=== PATIENT | male | born 1940 | race Caucasian/White ===

== ENCOUNTER → 2016-11-24 | Outpatient (REF) | payer MEDICARE ==
[~2016-11-24] MED LIST: ASPI325T PO; ASPI81CH32 PO; AZOP0.2S OU; DIOV160T6 PO; FLON1SPR; INDA125TA PO; PANT40TA2 PO; SOTA80TA2 PO; SPIR25TA2 PO; TYLE325T5 PO; VITA10006 PO; XARE20TA PO; ZYLO300T4 PO
[2016-11-24 12:40] LABS: ALBUMIN 3.6 GM/DL (3.2-5.2); ALBUMIN/GLOBULIN RATIO 1.06 (1.00-1.93); BILIRUBIN,TOTAL 0.6 MG/DL (0.2-1.0); CALCIUM LEVEL 9.4 MG/DL (8.8-10.2); CREATININE FOR GFR 1.26 MG/DL (0.70-1.30); GLOMERULAR FILTRATION RATE 59.2 (>42); MAGNESIUM LEVEL 2.8 MG/DL (1.8-2.4); POTASSIUM SERUM 4.4 MEQ/L (3.5-5.1)
[2016-11-24 13:05] LABS: MEAN CORPUSCULAR HEMOGLOBIN 32.3 pg (27.0-33.0); MEAN CORPUSCULAR HGB CONC 33.2 g/dl (32.0-36.5); MEAN CORPUSCULAR VOLUME 97.3 fl (80.0-96.0); RED CELL DISTRIBUTION WIDTH 13.5 % (11.5-14.5); WHITE BLOOD COUNT 8.2 K/mm3 (4.0-10.0)
== END ==
LOC: M SFHCPLAZ 08:50
PROVIDERS: ATTEND Internal Medicine
DX: R10.32 Left lower quadrant pain (principal); I10 Essential (primary) hypertension; I25.10 Atherosclerotic heart disease of native coronary artery without angina pectoris; E78.00 Pure hypercholesterolemia, unspecified

== ENCOUNTER → 2017-01-19 | Outpatient (CLI) | payer MEDICARE ==
[~2017-01-19] MED LIST changes: +FURO20TA2 PO; +REST0.05 OP
[2017-01-19 10:03] LABS: MEAN CORPUSCULAR HGB CONC 32.4 g/dl (32.0-36.5); MEAN CORPUSCULAR VOLUME 98.6 fl (80.0-96.0); RED CELL DISTRIBUTION WIDTH 13.7 % (11.5-14.5); WHITE BLOOD COUNT 7.6 K/mm3 (4.0-10.0)
[2017-01-19 10:40] LABS: ALBUMIN 3.4 GM/DL (3.2-5.2); ALBUMIN/GLOBULIN RATIO 0.97 (1.00-1.93); BILIRUBIN,TOTAL 0.4 MG/DL (0.2-1.0); CALCIUM LEVEL 8.7 MG/DL (8.8-10.2); CREATININE FOR GFR 1.4 MG/DL (0.70-1.30); GLOMERULAR FILTRATION RATE 52.5 (>42); POTASSIUM SERUM 4.1 MEQ/L (3.5-5.1); TOTAL PROTEIN 6.9 GM/DL (6.4-8.2)
== END ==
LOC: M LAB 09:33
PROVIDERS: ATTEND Internal Medicine Cardiovascular Disease
DX: I48.91 Unspecified atrial fibrillation (principal)

== ENCOUNTER → 2017-02-18 | Outpatient (CLI) | payer MEDICARE ==
[2017-02-18 10:36] LABS: MEAN CORPUSCULAR HEMOGLOBIN 31.8 pg (27.0-33.0); MEAN CORPUSCULAR HGB CONC 33.6 g/dl (32.0-36.5); MEAN CORPUSCULAR VOLUME 94.6 fl (80.0-96.0); RED CELL DISTRIBUTION WIDTH 13.2 % (11.5-14.5); WHITE BLOOD COUNT 6.8 K/mm3 (4.0-10.0)
[2017-02-18 10:52] LABS: CALCIUM LEVEL 9.2 MG/DL (8.8-10.2); CREATININE FOR GFR 1.32 MG/DL (0.70-1.30); MAGNESIUM LEVEL 2.6 MG/DL (1.8-2.4); POTASSIUM SERUM 4.3 MEQ/L (3.5-5.1)
== END ==
LOC: M LAB 09:46
PROVIDERS: ATTEND Nurse Practitioner Family
DX: Z01.812 Encounter for preprocedural laboratory examination (principal); I48.91 Unspecified atrial fibrillation

== ENCOUNTER 2017-02-24 13:07 | Outpatient (CLI) | payer MEDICARE ==
[~2017-02-24] VITALS: Ht 178 cm; Wt 98.0 kg
[~2017-02-24 13:07] MED LIST changes: -FURO20TA2 PO; -REST0.05 OP
[2017-02-24] MEDS ORDERED: FURO20TA2 PO (14:06)
[2017-02-24] MEDS ORDERED: REST0.05 OP (14:06)
[2017-02-24] MEDS ORDERED: fentaNYL 100 MCG/2 ML INJECTION (J3010) As Ordered ONE (14:37)
[2017-02-24] MEDS ORDERED: MIDAZOLAM INJ 2 MG/2 ML VIAL (J2250) As Ordered ONE (14:38)
[2017-02-24] MEDS ORDERED: LIDOCAINE VISCOUS 2% SOLN 15ML UDC As Ordered ONE (14:57)
[2017-02-24 16:00] VITALS: BP 149/99
--- NOTE | 2017-02-24 21:02 | RO ---
DATE OF PROCEDURE: 02/24/2017 PRIMARY CARE PROVIDER: Annie Gagnon MD CC: Gerber Raymond MD [place], [place] INDICATION: Atrial fibrillation. The procedure was performed in preparation for tentative atrial fibrillation ablation next week. PROCEDURE: Transesophageal echocardiogram (SHAVON). 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 He has had paroxysmal and lately persistent atrial fibrillation. He was seen by Dr. Gerbre Raymond at [facility] and electively scheduled for a atrial fibrillation ablation next week. I was asked by Dr. Raymond to perform transesophageal echocardiogram to evaluate for presence of left atrial thrombus before the procedure is performed. The patient has been chronically anticoagulated with Xarelto 20 mg daily. The nature of the procedure, its possible risks and complications were discussed with the patient prior on outpatient basis. He signed the appropriate consent form immediately prior to the procedure. PROCEDURE NOTE: Procedure was performed in endoscopy suite. The patient presented in fasting condition. After appropriate time-out was obtained, his posterior pharynx was anesthetized using viscous lidocaine and Cetacaine spray. He was sedated using total 2 mg of IV Versed and 50 mcg of IV fentanyl. He was then positioned in left lateral decubitus position. After appropriate level of sedation was accomplished, a probe was introduced into esophagus and later stomach without any difficulty. After appropriate images were obtained it was withdrawn. There were no immediate complications and the procedure was tolerated well. FINDINGS: Left ventricle is of normal contractility, estimated left ventricular ejection fraction (LVEF) around 55-60%. No segmental wall motion abnormalities are appreciated. Right ventricle also appears normal. Both atria are enlarged, left atrium severely. Right atrium appears only mildly enlarged. Left atrial appendage is of moderate size. There is a dense echo density apparent most consistent with left atrial appendage thrombus. It is round in nature and measures 0.5 x 0.8 cm. There is normal flow in both left-sided and right-sided pulmonary veins. Left atrial septum is intact based on 2-D, color Doppler imaging and injection of agitated saline. Mitral valve exhibits degenerative abnormalities, but there is no annie prolapse and no vegetations seen. Approximately mild to moderate mitral insufficiency is appreciated. Tricuspid valve also appears normal. Mild to moderate tricuspid insufficiency is seen. There are degenerative abnormalities of aortic valve with aortic sclerosis, but no stenosis. Trace insufficiency is seen by color Doppler imaging. Pulmonic valve was reasonably well seen. There is no apparent stenosis or insufficiency. No pericardial effusion is noted. There is mild atherosclerosis apparent in aortic arch and visualized segment of descending aorta. No ulcers or mobile thrombi in the aorta are seen. CONCLUSIONS: 1. Preserved LV systolic function. 2. Mild to moderate mitral and tricuspid insufficiency. 3. Degenerative abnormalities of aortic valve with trace aortic insufficiency and no aortic stenosis. 4. 0.5 x 0.8 cm round echodensity in left atrial appendage most consistent with thrombus. 5. Intact atrial septum. 6. Atherosclerosis of thoracic aorta. COMMENT: Subacute bacterial endocarditis (SBE) is not recommended. The patient will be continued on his chronic regimen and study will be repeated in 7-8 weeks. I discussed the findings with Dr. Raymond and his recommendations were also conveyed to the patient and his . BERT
== END 2017-02-24 16:04 | disposition home or self-care (01) ==
LOC: M OPP 13:07
PROVIDERS: ATTEND Internal Medicine Cardiovascular Disease
DX: I48.0 Paroxysmal atrial fibrillation (principal); I34.0 Nonrheumatic mitral (valve) insufficiency; I36.1 Nonrheumatic tricuspid (valve) insufficiency; Z98.61 Coronary angioplasty status; I10 Essential (primary) hypertension; E78.00 Pure hypercholesterolemia, unspecified; I25.10 Atherosclerotic heart disease of native coronary artery without angina pectoris; G47.30 Sleep apnea, unspecified; Z88.8 Allergy status to other drugs, medicaments and biological substances; Z79.899 Other long term (current) drug therapy; Z79.01 Long term (current) use of anticoagulants
CPT/HCPCS: 93312; 93320; 93325; J2250; J3010

== ENCOUNTER → 2017-04-15 | Outpatient (CLI) | payer MEDICARE ==
[~2017-04-15] MED LIST changes: +FURO20TA2 PO; +REST0.05 OP
[2017-04-15 10:31] LABS: ALBUMIN 3.7 GM/DL (3.2-5.2); ALBUMIN/GLOBULIN RATIO 1.12 (1.00-1.93); BILIRUBIN,TOTAL 0.6 MG/DL (0.2-1.0); CREATININE FOR GFR 1.51 MG/DL (0.70-1.30); GLOMERULAR FILTRATION RATE 47.9 (>42); MAGNESIUM LEVEL 2.5 MG/DL (1.8-2.4); POTASSIUM SERUM 4.1 MEQ/L (3.5-5.1)
== END ==
LOC: M LAB 09:26
PROVIDERS: ATTEND Internal Medicine
DX: I10 Essential (primary) hypertension (principal); E78.00 Pure hypercholesterolemia, unspecified; I48.0 Paroxysmal atrial fibrillation

== ENCOUNTER 2017-04-27 06:40 | Day surgery (SDC) | payer MEDICARE ==
[~2017-04-27] VITALS: Ht 180.3 cm; Wt 98.0 kg
[2017-04-27] MEDS ORDERED: LIDOCAINE VISCOUS 2% SOLN 15ML UDC As Ordered ONE (07:30)
[2017-04-27] MEDS ORDERED: MIDAZOLAM INJ 2 MG/2 ML VIAL (J2250) As Ordered ONE (07:36)
[2017-04-27] MEDS ORDERED: fentaNYL 100 MCG/2 ML INJECTION (J3010) As Ordered ONE (07:39)
[2017-04-27] MEDS ORDERED: MIDAZOLAM INJ 2 MG/2 ML VIAL (J2250) IV ONE (08:15)
[2017-04-27] MEDS: NS 1,000 ML IV SCH ×2 (08:15→08:24)
[2017-04-27] MEDS ORDERED: fentaNYL 100 MCG/2 ML INJECTION (J3010) IV ONE (08:15)
[2017-04-27 08:38] VITALS: BP 153/99
--- NOTE | 2017-04-27 09:21 | T-ECHO ---
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 He had a transesophageal echocardiogram 6 weeks ago in preparation for atrial fibrillation ablation. Unfortunately it detected a mass in his left atrial appendage and consequently the procedure was cancelled and he is now here for second transesophageal echocardiogram to make sure that the presumptive left atrial appendage thrombus has resolved. I discussed the rationale nature of the procedure and possible complications with the patient and his on outpatient basis. He did sign appropriate consent just prior to the procedure. Procedure was performed in endoscopy suite. The patient presented in fasting condition. After appropriate time-out was performed, his posterior pharynx was anesthetized using viscous lidocaine and Cetacaine spray. He was then positioned in left lateral decubital position and sedated with total of 2 mg of IV Versed and 25 mcg of IV fentanyl. Bite block was placed in place and SHAVON probe was introduced into esophagus without difficulty. After appropriate images were obtained, it was withdrawn. There were no immediate complications and the patient tolerated the procedure well. FINDINGS: Left ventricle has grossly normal contractility. I estimate ejection fraction around 55%. Right ventricle does not appear enlarged. Both atria are severely enlarged. Left atrial appendage is relatively large and is free of visible thrombi. Atrial septum is intact based on two-dimensional and color Doppler imaging. Aortic valve is sclerotic but it has three cusps and normal mobility. There is no stenosis or insufficiency of the valve. Mitral valve appears grossly structurally normal. I do not appreciate any obvious prolapse. There is approximately moderate or possibly even moderately severe mitral insufficiency with systolic flow reversal in left-sided pulmonary veins. Tricuspid valve exhibits mild or possibly mild to moderate insufficiency. Calculated pulmonary artery pressure is in 30s corresponding to mild pulmonary hypertension. Pulmonic valve was poorly visualized but grossly appears normal and there is no significant insufficiency. There is mild atherosclerosis of the thoracic aorta. CONCLUSIONS: 1. Preserved left ventricular systolic function. 2. Left atrial appendage free of thrombus. 3. Intact atrial septum. 4. Normally appearing mitral valve but at least moderate mitral insufficiency. 5. Aortic sclerosis but no stenosis or insufficiency. 6. Mild pulmonary hypertension. COMMENTS: Subacute bacterial endocarditis (SBE) prophylaxis is not recommended. Results will be communicated to Dr. Raymond in [place] so the patient can be scheduled for atrial fibrillation ablation as soon as possible. cc: MD Gerber Armando MD - [facility]
== END 2017-04-27 08:50 | disposition home or self-care (01) ==
LOC: M OPP 06:40
PROVIDERS: ATTEND Internal Medicine Cardiovascular Disease
DX: I48.91 Unspecified atrial fibrillation (principal); I10 Essential (primary) hypertension; I25.9 Chronic ischemic heart disease, unspecified; Z79.01 Long term (current) use of anticoagulants
CPT/HCPCS: 93312; 93320; 93325; J2250; J3010

== ENCOUNTER → 2017-05-05 | Outpatient (CLI) | payer MEDICARE ==
[2017-05-05 10:26] LABS: MEAN CORPUSCULAR HEMOGLOBIN 29.3 pg (27.0-33.0); MEAN CORPUSCULAR HGB CONC 31.7 g/dl (32.0-36.5); MEAN CORPUSCULAR VOLUME 92.5 fl (80.0-96.0); PLATELET COUNT, AUTOMATED 241 10^3/uL (150-450); RED CELL DISTRIBUTION WIDTH 14.5 % (11.5-14.5); WHITE BLOOD COUNT 9.7 10^3/uL (4.0-10.0)
[2017-05-05 10:53] LABS: CALCIUM LEVEL 9.3 MG/DL (8.8-10.2); CREATININE FOR GFR 1.31 MG/DL (0.70-1.30); GLOMERULAR FILTRATION RATE 56.5 (>42); MAGNESIUM LEVEL 2.6 MG/DL (1.8-2.4)
== END ==
LOC: M LAB 09:23
DX: I48.91 Unspecified atrial fibrillation (principal)

== ENCOUNTER → 2017-07-12 | Outpatient (CLI) | payer MEDICARE ==
[2017-07-12 10:09] LABS: ANION GAP 7 MEQ/L (8-16); BLOOD UREA NITROGEN 31 MG/DL (7-18); CALCIUM LEVEL 9.2 MG/DL (8.8-10.2); CARBON DIOXIDE LEVEL 29 MEQ/L (21-32); CHLORIDE LEVEL 107 MEQ/L (98-107); CREATININE FOR GFR 1.47 MG/DL (0.70-1.30); GLOMERULAR FILTRATION RATE 49.5 (>42); GLUCOSE, FASTING 97 MG/DL (70-100); POTASSIUM SERUM 4.5 MEQ/L (3.5-5.1); SODIUM LEVEL 143 MEQ/L (136-145)
== END ==
LOC: M LAB 08:53
DX: I10 Essential (primary) hypertension (principal)
CPT/HCPCS: 80048

== ENCOUNTER → 2017-08-29 | Outpatient (CLI) | payer MEDICARE ==
[2017-08-29 08:05] LABS: HEMATOCRIT 43.3 % (42.0-52.0); HEMOGLOBIN 13.8 g/dl (13.5-17.5); MEAN CORPUSCULAR HEMOGLOBIN 30.1 pg (27.0-33.0); MEAN CORPUSCULAR HGB CONC 31.9 g/dl (32.0-36.5); MEAN CORPUSCULAR VOLUME 94.3 fl (80.0-96.0); PLATELET COUNT, AUTOMATED 249 10^3/uL (150-450); RED BLOOD COUNT 4.59 10^6/uL (4.30-6.10); RED CELL DISTRIBUTION WIDTH 16.2 % (11.5-14.5); WHITE BLOOD COUNT 9.1 10^3/uL (4.0-10.0)
[2017-08-29 08:24] LABS: ALBUMIN 3.7 GM/DL (3.2-5.2); ALBUMIN/GLOBULIN RATIO 0.97 (1.00-1.93); ALKALINE PHOSPHATASE 84 U/L (45-117); ALT/SGPT 32 U/L (12-78); ANION GAP 6 MEQ/L (8-16); AST/SGOT 25 U/L (7-37); BILIRUBIN,TOTAL 0.5 MG/DL (0.2-1.0); BLOOD UREA NITROGEN 25 MG/DL (7-18); CALCIUM LEVEL 8.9 MG/DL (8.8-10.2); CARBON DIOXIDE LEVEL 28 MEQ/L (21-32); CHLORIDE LEVEL 110 MEQ/L (98-107); CHOLESTEROL LEVEL 179 MG/DL (<200); CHOLESTEROL RISK RATIO 3.891 (<5); CREATININE FOR GFR 1.38 MG/DL (0.70-1.30); GLOMERULAR FILTRATION RATE 53.2 (>42); GLUCOSE, FASTING 86 MG/DL (70-100); HDL CHOLESTEROL 46 MG/DL (>40); LDL CHOLESTEROL 90.8 MG/DL (<100); MAGNESIUM LEVEL 2.6 MG/DL (1.8-2.4); NON-HDL-C 133 MG/DL; POTASSIUM SERUM 3.9 MEQ/L (3.5-5.1); SODIUM LEVEL 144 MEQ/L (136-145); TOTAL PROTEIN 7.5 GM/DL (6.4-8.2); TRIGLYCERIDES LEVEL 211 MG/DL (<150)
== END ==
LOC: M LAB 07:20
DX: G47.30 Sleep apnea, unspecified (principal); I10 Essential (primary) hypertension; E78.00 Pure hypercholesterolemia, unspecified
CPT/HCPCS: 83735

== ENCOUNTER → 2017-10-17 | Outpatient (CLI) | payer MEDICARE ==
[2017-10-19 00:06] LABS: Lyme Disease IgG/IgM Antibodie <0.91 ISR (0.00-0.90); Lyme Disease IgM Ab Quantitati <0.80 index (0.00-0.79)
== END ==
LOC: M LAB 13:54
DX: M79.1 Myalgia (principal)
CPT/HCPCS: 36415

== ENCOUNTER → 2018-02-01 | Outpatient (CLI) | payer MEDICARE ==
[2018-02-01 07:24] LABS: HEMATOCRIT 40.3 % (42.0-52.0); HEMOGLOBIN 13.1 g/dl (13.5-17.5); MEAN CORPUSCULAR HEMOGLOBIN 30.5 pg (27.0-33.0); MEAN CORPUSCULAR HGB CONC 32.5 g/dl (32.0-36.5); MEAN CORPUSCULAR VOLUME 93.7 fl (80.0-96.0); PLATELET COUNT, AUTOMATED 237 10^3/uL (150-450); RED CELL DISTRIBUTION WIDTH 14.4 % (11.5-14.5); WHITE BLOOD COUNT 9.8 10^3/uL (4.0-10.0)
[2018-02-01 07:49] LABS: ALBUMIN 3.7 GM/DL (3.2-5.2); ALBUMIN/GLOBULIN RATIO 1.12 (1.00-1.93); ALKALINE PHOSPHATASE 84 U/L (45-117); ALT/SGPT 23 U/L (12-78); ANION GAP 11 MEQ/L (8-16); AST/SGOT 20 U/L (7-37); BILIRUBIN,TOTAL 0.4 MG/DL (0.2-1.0); BLOOD UREA NITROGEN 24 MG/DL (7-18); CALCIUM LEVEL 9.7 MG/DL (8.8-10.2); CARBON DIOXIDE LEVEL 26 MEQ/L (21-32); CHLORIDE LEVEL 107 MEQ/L (98-107); CHOLESTEROL LEVEL 230 MG/DL (<200); CHOLESTEROL RISK RATIO 5.609 (<5); CREATININE FOR GFR 1.38 MG/DL (0.70-1.30); GLOMERULAR FILTRATION RATE 53.1 (>42); GLUCOSE, FASTING 90 MG/DL (70-100); HDL CHOLESTEROL 41 MG/DL (>40); LDL CHOLESTEROL 128.8 MG/DL (<100); MAGNESIUM LEVEL 2.6 MG/DL (1.8-2.4); NON-HDL-C 189 MG/DL; POTASSIUM SERUM 4.3 MEQ/L (3.5-5.1); SODIUM LEVEL 144 MEQ/L (136-145); TRIGLYCERIDES LEVEL 301 MG/DL (<150)
[2018-02-01 10:03] LABS: PTH INTACT 76.3 PG/ML (18.5-88.0)
== END ==
LOC: M LAB 07:00
DX: G47.30 Sleep apnea, unspecified (principal); I12.9 Hypertensive chronic kidney disease with stage 1 through stage 4 chronic kidney disease, or unspecified chronic kidney disease; E78.00 Pure hypercholesterolemia, unspecified; N18.3 Chronic kidney disease, stage 3 (moderate)
CPT/HCPCS: 83735

== ENCOUNTER 2018-03-24 09:10 | Emergency (ER) | payer MEDICARE ==
[2018-03-24] MEDS: FLECAINIDE 50MG TABLET PO (09:55)
[2018-03-24 10:00] LABS: BASO # 0.1 10^3/uL (0.0-0.2); BASO % 0.7 % (0.0-1.0); EOS # 0.2 10^3/uL (0.0-0.50); EOS % 2.7 % (0.0-3.0); HEMATOCRIT 43.3 % (42.0-52.0); HEMOGLOBIN 14.3 g/dl (13.5-17.5); IMMATURE GRANULOCYTE % 0.1 % (0-3.0); LYMPH # 2.1 10^3/uL (1.5-4.5); LYMPH % 25.6 % (24.0-44.0); MEAN CORPUSCULAR HEMOGLOBIN 30.4 pg (27.0-33.0); MEAN CORPUSCULAR VOLUME 91.9 fl (80.0-96.0); MONO # 0.7 10^3/uL (0.0-0.8); MONO % 9.1 % (0.0-5.0); NEUTROPHILS % 61.8 % (36.0-66.0); PLATELET COUNT, AUTOMATED 218 10^3/uL (150-450); RED BLOOD COUNT 4.71 10^6/uL (4.30-6.10); RED CELL DISTRIBUTION WIDTH 14.9 % (11.5-14.5)
[2018-03-24 10:13] LABS: INR 1.41; PROTHROMBIN TIME 17.5 SECONDS (12.1-14.4)
[2018-03-24 10:41] LABS: ALBUMIN 3.7 GM/DL (3.2-5.2); ALBUMIN/GLOBULIN RATIO 1.12 (1.00-1.93); ALKALINE PHOSPHATASE 85 U/L (45-117); ALT/SGPT 31 U/L (12-78); ANION GAP 8 MEQ/L (8-16); AST/SGOT 24 U/L (7-37); BILIRUBIN,DIRECT 0.1 MG/DL (0.0-0.2); BILIRUBIN,TOTAL 0.4 MG/DL (0.2-1.0); BLOOD UREA NITROGEN 22 MG/DL (7-18); CALCIUM LEVEL 9.4 MG/DL (8.8-10.2); CARBON DIOXIDE LEVEL 28 MEQ/L (21-32); CHLORIDE LEVEL 105 MEQ/L (98-107); CPK CREATINE PHOSPHOKINASE 230 U/L (39-308); CREATININE FOR GFR 1.32 MG/DL (0.70-1.30); FREE T4 1.29 NG/DL (0.76-1.46); GLOMERULAR FILTRATION RATE 55.8 (>42); GLUCOSE, FASTING 96 MG/DL (70-100); MAGNESIUM LEVEL 2.4 MG/DL (1.8-2.4); MB/CK RELATIVE INDEX 2.43 (< OR =4); NT-PRO BNP 1475 PG/ML (<450); POTASSIUM SERUM 4.6 MEQ/L (3.5-5.1); SODIUM LEVEL 141 MEQ/L (136-145); TROPONIN I 0.06 NG/ML (< 0.10)
[2018-03-24] MEDS: METOPROLOL 5 MG/5 ML VIAL IV ×2 (11:29→11:53)
[2018-03-24] MEDS: MORPHINE 4 MG/ML 1ML VIAL/SYRINGE (J2270) IV (13:23)
[2018-03-24] MEDS ORDERED: ONDANSETRON 4MG/2ML VIAL (J2405) As Ordered (13:30)
[2018-03-24] MEDS: PROPOFOL 200 MG/20 ML VIAL IV (13:30)
[2018-03-24] MEDS: ONDANSETRON 4MG/2ML VIAL (J2405) IV (13:40)
== END 2018-03-24 15:10 | disposition home or self-care (01) ==
LOC: M ED 09:10
DX: I48.91 Unspecified atrial fibrillation (principal); Z95.5 Presence of coronary angioplasty implant and graft; Z88.8 Allergy status to other drugs, medicaments and biological substances; Z79.899 Other long term (current) drug therapy; Z79.01 Long term (current) use of anticoagulants
CPT/HCPCS: J2270

== ENCOUNTER → 2018-06-12 | Outpatient (CLI) | payer MEDICARE ==
[~2018-06-12] MED LIST changes: +HYDR-3910; +METO1TAB32; -PANT40TA2 PO; +PANT40TA3 PO; +SPIR-10 PO; -SPIR25TA2 PO; +TELM1TAB37; +TRAM50TA2; -ZYLO300T4 PO; +ZYLO300T6 PO
[2018-06-12 07:13] LABS: HEMATOCRIT 43.7 % (42.0-52.0); HEMOGLOBIN 14.3 g/dl (13.5-17.5); MEAN CORPUSCULAR HEMOGLOBIN 31.4 pg (27.0-33.0); MEAN CORPUSCULAR HGB CONC 32.7 g/dl (32.0-36.5); MEAN CORPUSCULAR VOLUME 95.8 fl (80.0-96.0); PLATELET COUNT, AUTOMATED 247 10^3/uL (150-450); RED BLOOD COUNT 4.56 10^6/uL (4.30-6.10); WHITE BLOOD COUNT 9.3 10^3/uL (4.0-10.0)
[2018-06-12 07:35] LABS: BLOOD UREA NITROGEN 27 MG/DL (7-18); CALCIUM LEVEL 9.2 MG/DL (8.8-10.2); CARBON DIOXIDE LEVEL 27 MEQ/L (21-32); CHLORIDE LEVEL 108 MEQ/L (98-107); CREATININE FOR GFR 1.21 MG/DL (0.70-1.30); GLOMERULAR FILTRATION RATE > 60.0 (>42); GLUCOSE, FASTING 88 MG/DL (70-100); POTASSIUM SERUM 4.3 MEQ/L (3.5-5.1); SODIUM LEVEL 143 MEQ/L (136-145)
== END ==
LOC: M LAB 06:23
PROVIDERS: ATTEND Internal Medicine Cardiovascular Disease
DX: Z01.812 Encounter for preprocedural laboratory examination (principal); I48.91 Unspecified atrial fibrillation

== ENCOUNTER → 2018-06-21 | Outpatient (CLI) | payer MEDICARE ==
[2018-06-21 11:19] LABS: BLOOD UREA NITROGEN 31 MG/DL (7-18); CALCIUM LEVEL 9.3 MG/DL (8.8-10.2); CARBON DIOXIDE LEVEL 27 MEQ/L (21-32); CHLORIDE LEVEL 107 MEQ/L (98-107); CREATININE FOR GFR 1.17 MG/DL (0.70-1.30); GLOMERULAR FILTRATION RATE > 60.0 (>42); GLUCOSE, FASTING 85 MG/DL (70-100); POTASSIUM SERUM 4.9 MEQ/L (3.5-5.1); SODIUM LEVEL 141 MEQ/L (136-145)
== END ==
LOC: M LAB 09:41
PROVIDERS: ATTEND Internal Medicine Advanced Heart Failure and Transplant Cardiology
DX: I10 Essential (primary) hypertension (principal)

== ENCOUNTER → 2018-11-10 | Outpatient (CLI) | payer MEDICARE ==
[~2018-11-10] MED LIST changes: +ASPI-1 PO; -ASPI325T PO; -ASPI81CH32 PO; +ASPI81CH33 PO
[2018-11-10 15:49] LABS: BLOOD UREA NITROGEN 24 MG/DL (7-18); CALCIUM LEVEL 9.1 MG/DL (8.8-10.2); CARBON DIOXIDE LEVEL 29 MEQ/L (21-32); CHLORIDE LEVEL 105 MEQ/L (98-107); CREATININE FOR GFR 1.17 MG/DL (0.70-1.30); GLOMERULAR FILTRATION RATE > 60.0 (>42); GLUCOSE, FASTING 103 MG/DL (70-100); POTASSIUM SERUM 4.9 MEQ/L (3.5-5.1); SODIUM LEVEL 137 MEQ/L (136-145)
[2018-11-13 13:24] LABS: CPK CREATINE PHOSPHOKINASE 348 U/L (39-308); MAGNESIUM LEVEL 2.7 MG/DL (1.8-2.4)
== END ==
LOC: M LAB 14:33
PROVIDERS: ATTEND Internal Medicine Cardiovascular Disease
DX: I10 Essential (primary) hypertension (principal); Z98.61 Coronary angioplasty status; M62.89 Other specified disorders of muscle

== ENCOUNTER → 2018-11-14 | Outpatient (CLI) | payer MEDICARE | LOC: M LAB 15:41 | PROVIDERS: ATTEND Internal Medicine Cardiovascular Disease | DX: R53.1 Weakness (principal); I48.91 Unspecified atrial fibrillation ==

== ENCOUNTER → 2018-12-27 | Outpatient (REF) | payer MEDICARE ==
[2019-01-02 10:29] LABS: DRVV SCREEN 66.1 SEC
[2019-01-02 10:32] LABS: PTT LUPUS TYPE ANTICOAG SCREEN 1.7 (0-1.2)
[2019-01-02 10:39] LABS: LUPUS CONFIRM RATIO 1.3
[2019-01-02 10:45] LABS: NORMALIZED RATIO 1.31 (0.00-1.20)
[2019-01-03 00:07] LABS: ACETYLCHOLINE RCPTOR BINDING A < 0.03 nmol/L (0.00-0.24); ALDOLASE 5.2 U/L (3.3-10.3); ANGIOTENSIN 1 CONVERTING ENZYM 63 U/L (14-82); STRIATIONAL ANTIBODIES Negative (Neg:<1:40)
[2019-01-04 14:51] LABS: HEXAGONAL PHASE PHOSPHOLIPID 0 sec (0-11)
== END ==
LOC: M LABNEURO 12:00
PROVIDERS: ATTEND Psychiatry & Neurology Neurology
DX: R42 Dizziness and giddiness (principal)

== ENCOUNTER → 2019-01-01 | Outpatient (REF) | payer MEDICARE ==
[2019-01-01 14:13] LABS: HEMOGLOBIN 14.7 g/dl (13.5-17.5); MEAN CORPUSCULAR HEMOGLOBIN 31.2 pg (27.0-33.0); MEAN CORPUSCULAR HGB CONC 32.7 g/dl (32.0-36.5); MEAN CORPUSCULAR VOLUME 95.5 fl (80.0-96.0); PLATELET COUNT, AUTOMATED 279 10^3/uL (150-450); RED BLOOD COUNT 4.71 10^6/uL (4.30-6.10); WHITE BLOOD COUNT 7.6 10^3/uL (4.0-10.0)
[2019-01-01 14:49] LABS: ALBUMIN 3.8 GM/DL (3.2-5.2); ALT/SGPT 32 U/L (12-78); BILIRUBIN,TOTAL 0.4 MG/DL (0.2-1.0); BLOOD UREA NITROGEN 19 MG/DL (7-18); CALCIUM LEVEL 9.5 MG/DL (8.8-10.2); CARBON DIOXIDE LEVEL 29 MEQ/L (21-32); CHLORIDE LEVEL 101 MEQ/L (98-107); CHOLESTEROL LEVEL 223 MG/DL (<200); CHOLESTEROL RISK RATIO 5.868 (<5); CREATININE FOR GFR 1.22 MG/DL (0.70-1.30); GLOMERULAR FILTRATION RATE > 60.0 (>42); GLUCOSE, FASTING 86 MG/DL (70-100); HDL CHOLESTEROL 38 MG/DL (>40); LDL CHOLESTEROL 109 MG/DL (<100); MAGNESIUM LEVEL 2.6 MG/DL (1.8-2.4); NON-HDL-C 185 MG/DL; POTASSIUM SERUM 4.9 MEQ/L (3.5-5.1); PTH INTACT 121.8 PG/ML (18.5-88.0); SODIUM LEVEL 135 MEQ/L (136-145); TOTAL PROTEIN 7.4 GM/DL (6.4-8.2); TRIGLYCERIDES LEVEL 380 MG/DL (<150)
== END ==
LOC: M SFHCPLAZ 11:40
PROVIDERS: ATTEND Internal Medicine
DX: M48.062 Spinal stenosis, lumbar region with neurogenic claudication (principal); I12.9 Hypertensive chronic kidney disease with stage 1 through stage 4 chronic kidney disease, or unspecified chronic kidney disease; N18.3 Chronic kidney disease, stage 3 (moderate)

== ENCOUNTER → 2019-05-04 | Outpatient (CLI) | payer MEDICARE ==
[2019-05-04 10:15] LABS: BILIRUBIN,TOTAL 0.5 MG/DL (0.2-1.0); CALCIUM LEVEL 9.3 MG/DL (8.8-10.2); CREATININE FOR GFR 1.28 MG/DL (0.70-1.30); GLOMERULAR FILTRATION RATE 57.7 (>42); POTASSIUM SERUM 4.1 MEQ/L (3.5-5.1)
[2019-05-04 10:16] LABS: ALBUMIN 3.5 GM/DL (3.2-5.2); CHOLESTEROL RISK RATIO 5.69 (<5); MAGNESIUM LEVEL 2.6 MG/DL (1.8-2.4); TOTAL PROTEIN 6.7 GM/DL (6.4-8.2); URIC ACID 5.7 MG/DL (3.5-7.2)
[2019-05-04 10:29] LABS: PTH INTACT 116.1 PG/ML (18.5-88.0); TOTAL 25(OH) VITAMIN D 25.4 NG/ML (30.0-100.0)
== END ==
LOC: M LAB 08:58
PROVIDERS: ATTEND Internal Medicine
DX: I12.9 Hypertensive chronic kidney disease with stage 1 through stage 4 chronic kidney disease, or unspecified chronic kidney disease (principal); N18.3 Chronic kidney disease, stage 3 (moderate); M10.9 Gout, unspecified

== ENCOUNTER → 2019-06-25 | Outpatient (REF) | payer MEDICARE ==
[2019-06-25 19:33] LABS: CALCIUM LEVEL 9.6 MG/DL (8.8-10.2); CREATININE FOR GFR 1.37 MG/DL (0.70-1.30); GLOMERULAR FILTRATION RATE 53.4 (>42)
== END ==
LOC: M SFHCPLAZ 14:17
PROVIDERS: ATTEND Internal Medicine
DX: I50.33 Acute on chronic diastolic (congestive) heart failure (principal)

== ENCOUNTER → 2019-06-29 | Outpatient (CLI) | payer MEDICARE ==
[2019-06-29 19:27] LABS: BASO # 0.1 10^3/uL (0.0-0.2); BASO % 0.6 % (0.0-1.0); EOS # 0.2 10^3/uL (0.0-0.5); EOS % 2.3 % (0.0-3.0); HEMATOCRIT 44.1 % (42.0-52.0); HEMOGLOBIN 14.1 g/dl (13.5-17.5); LYMPH # 2.5 10^3/uL (1.5-5.0); LYMPH % 25.3 % (24.0-44.0); MEAN CORPUSCULAR HEMOGLOBIN 30.9 pg (27.0-33.0); MEAN CORPUSCULAR VOLUME 96.7 fl (80.0-96.0); MONO # 0.5 10^3/uL (0.0-0.8); MONO % 5.4 % (0.0-5.0); NEUTROPHILS # 6.5 10^3/uL (1.5-8.5); NEUTROPHILS % 65.7 % (36.0-66.0); PLATELET COUNT, AUTOMATED 269 10^3/uL (150-450); RED BLOOD COUNT 4.56 10^6/uL (4.30-6.10); WHITE BLOOD COUNT 9.9 10^3/uL (4.0-10.0)
[2019-06-29 19:44] LABS: ALBUMIN 3.9 GM/DL (3.2-5.2); ALT/SGPT 25 U/L (12-78); BILIRUBIN,TOTAL 0.6 MG/DL (0.2-1.0); BLOOD UREA NITROGEN 23 MG/DL (7-18); C REACTIVE PROTEIN QUANTITATIV < 0.30 MG/DL (0.00-0.30); CALCIUM LEVEL 9.4 MG/DL (8.8-10.2); CARBON DIOXIDE LEVEL 30 MEQ/L (21-32); CHLORIDE LEVEL 105 MEQ/L (98-107); CREATININE FOR GFR 1.44 MG/DL (0.70-1.30); GLOMERULAR FILTRATION RATE 50.4 (>42); GLUCOSE, FASTING 116 MG/DL (70-100); NT-PRO BNP 732 PG/ML (<450); POTASSIUM SERUM 3.8 MEQ/L (3.5-5.1); SODIUM LEVEL 141 MEQ/L (136-145); THYROID STIMULATING HORMONE 0.874 uIU/ML (0.358-3.740); TOTAL PROTEIN 7.5 GM/DL (6.4-8.2)
[2019-06-29 19:49] LABS: AMORPHOUS SEDIMENT SMALL (NEGATIVE); APPEARANCE, URINE HAZY (CLEAR); BACTERIA, URINE AUTO NEGATIVE (NEGATIVE); BILIRUBIN, URINE AUTO NEGATIVE (NEGATIVE); BLOOD, URINE BLOOD NEGATIVE (NEGATIVE); CALCIUM OXALATE CRYSTALS LARGE; COLOR, URINE YELLOW (YELLOW); GLUCOSE, URINE (UA) AUTO NEGATIVE (NEGATIVE); KETONE, URINE AUTO NEGATIVE (NEGATIVE); LEUKOCYTE ESTERASE, URINE AUTO NEGATIVE (NEGATIVE); MUCUS, URINE SMALL (NEGATIVE); NITRITE, URINE AUTO NEGATIVE (NEGATIVE); PROTEIN, URINE AUTO NEGATIVE (NEGATIVE); RBC, URINE AUTO 1 /HPF (0-3); SQUAMOUS EPITHELIAL CELL UR AU 0 /HPF (0-6); UROBILINOGEN, URINE AUTO 0.2 mg/dL (0.0-2.0); WBC, URINE AUTO 1 /HPF (0-3)
[2019-06-29 23:12] LABS: ERYTHROCYTE SEDIMENTATION RATE 13 mm/hr (0-20)
[2019-07-03 00:06] LABS: ANTI DOUBLE STRAND-DNA AB <1 IU/mL (0-9); ANTINUCLEAR ANTIBODIES DIRECT Positive (Negative); RNP ANTIBODIES 0.3 AI (0.0-0.9); SJOGREN'S ANTI SS-A <0.2 AI (0.0-0.9); SJOGREN'S ANTI SS-B <0.2 AI (0.0-0.9); SMITH ANTIBODIES <0.2 AI (0.0-0.9)
== END ==
LOC: M PLALAB 13:40
PROVIDERS: ATTEND Internal Medicine Cardiovascular Disease
DX: I11.0 Hypertensive heart disease with heart failure (principal); R29.898 Other symptoms and signs involving the musculoskeletal system; I50.9 Heart failure, unspecified
CPT/HCPCS: 36415; 80053; 81001; 83880; 84443; 85025; 85652; 86038; 86140; G0103

== ENCOUNTER 2019-07-13 21:18 | Emergency (ER) | payer MEDICARE ==
[~2019-07-13] VITALS: Ht 180.3 cm; Wt 102.2 kg
[~2019-07-13 21:18] MED LIST changes: -TELM1TAB37; +TELM1TAB37 PO
[2019-07-13] MEDS ORDERED: TRANEXAMIC ACID 100 MG/ML 10ML VIAL XX ONE (22:15)
[2019-07-13] MEDS ORDERED: SILVER NITRATE APPLICATOR TOP ONE (22:45)
[2019-07-14] MEDS ORDERED: MELO15TA28 PO (00:05)
[2019-07-14] MEDS ORDERED: VENTAER INH (00:05)
[2019-07-14] MEDS ORDERED: ASPI81TA85 PO (00:05)
[2019-07-14] MEDS ORDERED: CODE30TA PO (00:05)
[2019-07-14] MEDS ORDERED: ROCA0.5C PO (00:05)
[2019-07-14] MEDS ORDERED: VOLT1GEL15 TD (00:05)
[2019-07-14] MEDS ORDERED: DICY20TA11 PO (00:05)
[2019-07-14] MEDS ORDERED: ROSU10TA6 PO (00:05)
[2019-07-14] MEDS ORDERED: VITA100T59 PO (00:05)
[2019-07-14] MEDS ORDERED: FURO40TA2 PO (00:05)
[2019-07-14] MEDS ORDERED: SM LTAB5 PO (00:05)
[2019-07-14] MEDS ORDERED: MIRA3350 PO (00:05)
[2019-07-14 00:13] VITALS: BP 179/88
== END 2019-07-14 00:14 | disposition home or self-care (01) ==
LOC: M ED 21:18
DX: H92.22 Otorrhagia, left ear (principal); I48.91 Unspecified atrial fibrillation; Z79.899 Other long term (current) drug therapy; Z88.8 Allergy status to other drugs, medicaments and biological substances

== ENCOUNTER → 2019-08-03 | Outpatient (REF) | payer MEDICARE ==
[~2019-08-03] MED LIST changes: +ASPI81TA85 PO; +CODE30TA PO; +DICY20TA11 PO; +FURO40TA2 PO; +MELO15TA28 PO; +MIRA3350 PO; +ROCA0.5C PO; +ROSU10TA6 PO; +SM LTAB5 PO; +VENTAER INH; +VITA100T59 PO; +VOLT1GEL15 TD
== END ==
LOC: M SMT 17:18
PROVIDERS: ATTEND Urology
DX: R31.0 Gross hematuria (principal)
CPT/HCPCS: 52000; 87086; 88108; G0463

== ENCOUNTER → 2019-08-13 | Outpatient (CLI) | payer MEDICARE ==
[~2019-08-13] MED LIST changes: +ISOVUE-370 76% 100ML VIAL (Q9967) As Ordered ONE
--- NOTE | 2019-08-13 10:01 | REP ---
CT UROGRAPHY: CT STUDY OF THE ABDOMEN AND PELVIS WITHOUT AND DUAL-PHASE POSTCONTRAST IMAGING: HISTORY: Gross hematuria. Comparison sonography August 18, 2015 showed a 3.8 cm cyst in the right kidney. CT CONTRAST DOSE: 100 mL of intravenous Isovue 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 The lung bases show no significant abnormality. There is a moderate size sliding type hiatal hernia. There is coronary artery vascular calcification. No adrenal lesion is seen. No abnormality is noted in the gallbladder or the pancreas. There is a cyst in the upper pole of the right kidney again noted. This measures 4.0 cm in greatest diameter. There is an intrarenal calculus in the upper pole of the left kidney measuring 3 mm. Vascular calcifications noted in the renal artery branches bilaterally. There is no evidence of hydronephrosis. No other intrarenal calculus is appreciated. There is no evidence of renal mass lesion. The 4 cm cyst is a simple cyst by CT criteria. There is a tiny cortical cyst in the periphery of the right kidney as well 4-5 mm in greatest diameter. Delayed acquisition images show no evidence of filling defect in either collecting system. There is no evidence of bladder mass. Ureters describe a normal course to the urinary bladder. No abdominal wall defect is seen. Visualized small and large bowel loops are unremarkable. The patient is status post appendectomy and right herniorrhaphy. IMPRESSION: Upper pole cyst right kidney. Hiatal hernia. 3 mm intrarenal calculus upper pole left kidney. Electronically Signed by Huy Cuevas MD 08/13/2019 11:31 A
== END ==
LOC: M RAD 07:30
PROVIDERS: ATTEND Urology
DX: R31.0 Gross hematuria (principal)
CPT/HCPCS: 74178; Q9967

== ENCOUNTER → 2019-09-13 | Outpatient (REF) | payer MEDICARE ==
[~2019-09-13] MED LIST changes: -ISOVUE-370 76% 100ML VIAL (Q9967) As Ordered ONE
[2019-09-13 11:23] LABS: HEMATOCRIT 44.1 % (42.0-52.0); HEMOGLOBIN 14.1 g/dl (13.5-17.5); MEAN CORPUSCULAR HEMOGLOBIN 30.7 pg (27.0-33.0); MEAN CORPUSCULAR VOLUME 95.9 fl (80.0-96.0); PLATELET COUNT, AUTOMATED 207 10^3/uL (150-450); WHITE BLOOD COUNT 8.3 10^3/uL (4.0-10.0)
[2019-09-13 12:31] LABS: PTH INTACT 77.7 PG/ML (18.5-88.0)
[2019-09-13 12:34] LABS: ALBUMIN 3.8 GM/DL (3.2-5.2); BILIRUBIN,TOTAL 0.4 MG/DL (0.2-1.0); CALCIUM LEVEL 10.2 MG/DL (8.8-10.2); CHOLESTEROL RISK RATIO 3.6 (<5); CREATININE FOR GFR 1.51 MG/DL (0.70-1.30); GLOMERULAR FILTRATION RATE 47.7 (>42); MAGNESIUM LEVEL 2.5 MG/DL (1.8-2.4); POTASSIUM SERUM 3.9 MEQ/L (3.5-5.1); TOTAL PROTEIN 7.3 GM/DL (6.4-8.2); URIC ACID 4.4 MG/DL (3.5-7.2)
== END ==
LOC: M PLALAB 10:10
PROVIDERS: ATTEND Internal Medicine
DX: M48.062 Spinal stenosis, lumbar region with neurogenic claudication (principal); I12.9 Hypertensive chronic kidney disease with stage 1 through stage 4 chronic kidney disease, or unspecified chronic kidney disease; I25.10 Atherosclerotic heart disease of native coronary artery without angina pectoris; N18.3 Chronic kidney disease, stage 3 (moderate); M10.9 Gout, unspecified

== ENCOUNTER → 2019-11-12 | Outpatient (REF) | payer MEDICARE | LOC: M SMT 16:46 | PROVIDERS: ATTEND Urology | DX: R82.89 Other abnormal findings on cytological and histological examination of urine (principal) ==

== ENCOUNTER → 2019-12-05 | Outpatient (CLI) | payer MEDICARE ==
[~2019-12-05] MED LIST changes: -ASPI81TA85 PO; +ASPI81TA86 PO; -METO1TAB32; +METO1TAB32 PO; +PANT40TA29 PO; -PANT40TA3 PO; +PLAV1TAB2 PO; +REFRSOL OU; -TRAM50TA2; +TRAM50TA2 PO
[2019-12-05 13:22] LABS: MEAN CORPUSCULAR HEMOGLOBIN 31.7 pg (27.0-33.0); MEAN CORPUSCULAR HGB CONC 31.8 g/dl (32.0-36.5); MEAN CORPUSCULAR VOLUME 99.8 fl (80.0-96.0); PLATELET COUNT, AUTOMATED 222 10^3/uL (150-450); RED BLOOD COUNT 4.41 10^6/uL (4.30-6.10); WHITE BLOOD COUNT 8.8 10^3/uL (4.0-10.0)
[2019-12-05 13:32] LABS: CALCIUM LEVEL 9.9 MG/DL (8.8-10.2); CHOLESTEROL RISK RATIO 3.729 (<5); CREATININE FOR GFR 1.3 MG/DL (0.70-1.30); GLOMERULAR FILTRATION RATE 56.7 (>42); POTASSIUM SERUM 4.3 MEQ/L (3.5-5.1)
== END ==
LOC: M PLALAB 10:21
PROVIDERS: ATTEND Internal Medicine Cardiovascular Disease
DX: I25.10 Atherosclerotic heart disease of native coronary artery without angina pectoris (principal); Z98.61 Coronary angioplasty status; E78.00 Pure hypercholesterolemia, unspecified

== ENCOUNTER → 2020-03-14 | Outpatient (REF) | payer MEDICARE ==
[~2020-03-14] MED LIST changes: +METO1TAB32; -METO1TAB32 PO; -PLAV1TAB2 PO; -REFRSOL OU; +TRAM50TA2; -TRAM50TA2 PO
[2020-03-14 14:14] LABS: HEMATOCRIT 44.1 % (42.0-52.0); HEMOGLOBIN 14.1 g/dl (13.5-17.5); MEAN CORPUSCULAR HEMOGLOBIN 31.8 pg (27.0-33.0); MEAN CORPUSCULAR VOLUME 99.3 fl (80.0-96.0); PLATELET COUNT, AUTOMATED 208 10^3/uL (150-450); RED BLOOD COUNT 4.44 10^6/uL (4.30-6.10); WHITE BLOOD COUNT 8.2 10^3/uL (4.0-10.0)
[2020-03-14 14:43] LABS: ALBUMIN 3.6 GM/DL (3.2-5.2); ALT/SGPT 36 U/L (12-78); BILIRUBIN,TOTAL 0.4 MG/DL (0.2-1.0); BLOOD UREA NITROGEN 21 MG/DL (7-18); CALCIUM LEVEL 9.3 MG/DL (8.8-10.2); CARBON DIOXIDE LEVEL 33 MEQ/L (21-32); CHLORIDE LEVEL 107 MEQ/L (98-107); CHOLESTEROL LEVEL 146 MG/DL (<200); CHOLESTEROL RISK RATIO 3.476 (<5); GLOMERULAR FILTRATION RATE > 60.0 (>35); GLUCOSE, FASTING 80 MG/DL (70-100); HDL CHOLESTEROL 42 MG/DL (>40); LDL CHOLESTEROL 68 MG/DL (<100); MAGNESIUM LEVEL 2.4 MG/DL (1.8-2.4); NON-HDL-C 104 MG/DL; POTASSIUM SERUM 3.9 MEQ/L (3.5-5.1); SODIUM LEVEL 145 MEQ/L (136-145); TOTAL PROTEIN 6.8 GM/DL (6.4-8.2); TRIGLYCERIDES LEVEL 182 MG/DL (<150)
[2020-03-14 14:48] LABS: PTH INTACT 113.3 PG/ML (18.5-88.0)
== END ==
LOC: M PLALAB 11:28
PROVIDERS: ATTEND Internal Medicine
DX: G47.30 Sleep apnea, unspecified (principal); I12.9 Hypertensive chronic kidney disease with stage 1 through stage 4 chronic kidney disease, or unspecified chronic kidney disease; E78.00 Pure hypercholesterolemia, unspecified; N18.30 Chronic kidney disease, stage 3 unspecified

== ENCOUNTER → 2020-03-24 | Outpatient (REF) | payer MEDICARE ==
[~2020-03-24] MED LIST changes: -METO1TAB32; +METO1TAB32 PO; +PLAV1TAB2 PO; +REFRSOL OU; -TRAM50TA2; +TRAM50TA2 PO
[2020-03-24 18:14] LABS: APPEARANCE, URINE CLOUDY (CLEAR); BACTERIA, URINE AUTO NEGATIVE (NEGATIVE); BILIRUBIN, URINE AUTO NEGATIVE (NEGATIVE); BLOOD, URINE BLOOD 3+ (NEGATIVE); CALCIUM OXALATE CRYSTALS SMALL; COLOR, URINE YELLOW (YELLOW); GLUCOSE, URINE (UA) AUTO NEGATIVE (NEGATIVE); KETONE, URINE AUTO NEGATIVE (NEGATIVE); LEUKOCYTE ESTERASE, URINE AUTO NEGATIVE (NEGATIVE); NITRITE, URINE AUTO NEGATIVE (NEGATIVE); PROTEIN, URINE AUTO 1+ mg/dL (NEGATIVE); RBC, URINE AUTO TNTC /HPF (0-3); SPECIFIC GRAVITY URINE AUTO 1.009 (1.002-1.035); SQUAMOUS EPITHELIAL CELL UR AU 0 /HPF (0-6); UROBILINOGEN, URINE AUTO 0.2 mg/dL (0.0-2.0); WBC, URINE AUTO 0 /HPF (0-3)
== END ==
LOC: M SMT 16:47
PROVIDERS: ATTEND Urology
DX: R31.0 Gross hematuria (principal)

== ENCOUNTER 2020-04-07 21:15 | Emergency (ER) | payer MEDICARE ==
[~2020-04-07] VITALS: Ht 180.3 cm; Wt 92.9 kg
[~2020-04-07 21:15] MED LIST changes: -FLON1SPR; +FLON1SPR NARES; -VOLT1GEL15 TD; +VOLT1GEL15 TOP
[2020-04-07] MEDS ORDERED: OXYMETAZOLINE 0.05% NASAL SPRAY (AFRIN) ONE (22:00)
[2020-04-08] VITALS: BP 238/118
[2020-04-08] MEDS ORDERED: cloNIDine 0.1 MG TAB PO ONE
[2020-04-08 00:54] VITALS: BP 220/118
== END 2020-04-08 00:55 | disposition home or self-care (01) ==
LOC: M ED 21:15
DX: R04.0 Epistaxis (principal); I10 Essential (primary) hypertension; I48.91 Unspecified atrial fibrillation; I25.10 Atherosclerotic heart disease of native coronary artery without angina pectoris; G47.30 Sleep apnea, unspecified; Z79.01 Long term (current) use of anticoagulants; Z79.899 Other long term (current) drug therapy; Z88.8 Allergy status to other drugs, medicaments and biological substances

== ENCOUNTER → 2020-04-09 | Outpatient (REF) | payer MEDICARE ==
[~2020-04-09] MED LIST changes: +FLON1SPR; -FLON1SPR NARES; +VOLT1GEL15 TD; -VOLT1GEL15 TOP
[2020-04-09 18:01] LABS: BASO # 0.1 10^3/uL (0.0-0.2); EOS # 0.2 10^3/uL (0.0-0.5); EOS % 2.8 % (0.0-3.0); HEMATOCRIT 42.6 % (42.0-52.0); HEMOGLOBIN 13.8 g/dl (13.5-17.5); LYMPH # 2.3 10^3/uL (1.5-5.0); LYMPH % 31.9 % (24.0-44.0); MEAN CORPUSCULAR HEMOGLOBIN 32.4 pg (27.0-33.0); MEAN CORPUSCULAR HGB CONC 32.4 g/dl (32.0-36.5); MONO # 0.5 10^3/uL (0.0-0.8); MONO % 7.5 % (0.0-5.0); NEUTROPHILS # 4.1 10^3/uL (1.5-8.5); NEUTROPHILS % 56.4 % (36.0-66.0); PLATELET COUNT, AUTOMATED 212 10^3/uL (150-450); RED BLOOD COUNT 4.26 10^6/uL (4.30-6.10); WHITE BLOOD COUNT 7.2 10^3/uL (4.0-10.0)
[2020-04-09 18:30] LABS: ALBUMIN 3.9 GM/DL (3.2-5.2); ALT/SGPT 42 U/L (12-78); BILIRUBIN,TOTAL 0.5 MG/DL (0.2-1.0); BLOOD UREA NITROGEN 18 MG/DL (7-18); CALCIUM LEVEL 9.6 MG/DL (8.8-10.2); CARBON DIOXIDE LEVEL 30 MEQ/L (21-32); CHLORIDE LEVEL 107 MEQ/L (98-107); CHOLESTEROL LEVEL 134 MG/DL (<200); CREATININE FOR GFR 1.22 MG/DL (0.70-1.30); GLOMERULAR FILTRATION RATE > 60.0 (>35); GLUCOSE, FASTING 96 MG/DL (70-100); HDL CHOLESTEROL 40 MG/DL (>40); LDL CHOLESTEROL 52 MG/DL (<100); MAGNESIUM LEVEL 2.3 MG/DL (1.8-2.4); NON-HDL-C 94 MG/DL; POTASSIUM SERUM 4.3 MEQ/L (3.5-5.1); SODIUM LEVEL 142 MEQ/L (136-145); TOTAL PROTEIN 6.9 GM/DL (6.4-8.2); TRIGLYCERIDES LEVEL 211 MG/DL (<150); URIC ACID 4.2 MG/DL (3.5-7.2)
[2020-04-09 18:38] LABS: PTH INTACT 122.4 PG/ML (18.5-88.0)
== END ==
LOC: M PLALAB 13:41
PROVIDERS: ATTEND Urology
DX: G47.30 Sleep apnea, unspecified (principal); I12.9 Hypertensive chronic kidney disease with stage 1 through stage 4 chronic kidney disease, or unspecified chronic kidney disease; E78.00 Pure hypercholesterolemia, unspecified; N18.30 Chronic kidney disease, stage 3 unspecified; M10.9 Gout, unspecified

== ENCOUNTER → 2020-04-09 | Outpatient (CLI) | payer MEDICARE ==
--- NOTE | 2020-04-09 14:33 | REPPI ---
INDICATION: PREOP TESTING. COMPARISON: Comparison is made with prior chest x-rays from May 17, 2016, June 25, 2015, June 04, 2012, and July 22, 2006. TECHNIQUE: Two views.. FINDINGS: The lungs are well inflated and free of infiltrate. The pleural angles are sharp. The heart size is normal. Pulmonary vasculature is not increased. No significant bony abnormality is seen. There is a 9 mm density projecting in the left perihilar region over the left posterior 6th rib crossing with the anterior 3rd rib. On this patient's previous chest x-rays, monitoring electrodes are fixed to the skin at this precise location. This may be a bone island in the posterior 6th rib but I cannot exclude a pulmonary nodule. A 2nd possible nodular opacity is seen in the left base just above the left hemidiaphragm. Lung nichole are otherwise clear. There are mild degenerative changes in the thoracic spine. A loop recorder is seen projecting over the sternum border on the left. The thoracic aorta is calcific and somewhat tortuous. IMPRESSION: Loop recorder seen. Two nodular densities project on the left. Bone island versus pulmonary nodule. Recommend chest CT study. Otherwise no active disease.. <Electronically signed by Edin Cuevas > 04/09/20 [id number]
== END ==
LOC: M PLAIMG 13:43
PROVIDERS: ATTEND Urology
DX: Z01.818 Encounter for other preprocedural examination (principal); R91.8 Other nonspecific abnormal finding of lung field; M51.34 Other intervertebral disc degeneration, thoracic region; R31.0 Gross hematuria

== ENCOUNTER → 2020-04-11 | Outpatient (CLI) | payer MEDICARE ==
[~2020-04-11] MED LIST changes: +OXYB5TAB10 PO
== END ==
LOC: M LABSMTC 09:55
PROVIDERS: ATTEND Anesthesiology
DX: Z01.812 Encounter for preprocedural laboratory examination (principal); Z20.828 Contact with and (suspected) exposure to other viral communicable diseases

== ENCOUNTER → 2020-04-15 | Outpatient (REF) | payer MEDICARE ==
[~2020-04-15] MED LIST changes: +ASCO500T PO; +DITR5TAB PO; +DULC5TAB PO; -FLON1SPR; +FLON1SPR NARES; +HYDR-4514 PO; +LEVO250T12 PO; +ROZE8TAB16 PO; +SENN-52 PO; +SENO8.6T10 PO; -VOLT1GEL15 TD; +VOLT1GEL15 TOP
== END ==
LOC: M SMT 13:21
PROVIDERS: ATTEND Urology
DX: Z01.818 Encounter for other preprocedural examination (principal); R31.0 Gross hematuria; N39.0 Urinary tract infection, site not specified

== ENCOUNTER 2020-04-16 06:08 | Day surgery (SDC) | payer MEDICARE ==
[~2020-04-16] VITALS: Ht 177.8 cm; Wt 89.4 kg
[~2020-04-16 06:08] MED LIST changes: -ASCO500T PO; -DITR5TAB PO; -DULC5TAB PO; -HYDR-4514 PO; -LEVO250T12 PO; -OXYB5TAB10 PO; -ROZE8TAB16 PO; -SENN-52 PO; -SENO8.6T10 PO
[2020-04-16] MEDS ORDERED: propofoL 200 MG/20 ML VIAL As Ordered ONE ×2 (07:19→08:44)
[2020-04-16] MEDS: LR 1,000 ML IV ONE (07:19)
[2020-04-16] MEDS ORDERED: LIDOCAINE 2% 100MG/5ML SDV (FOR ANES.) As Ordered ONE (07:19)
[2020-04-16] MEDS ORDERED: dexameTHASONE 4 MG/ML 1ML VIAL (J1100 PER 1MG) As Ordered ONE (07:20)
[2020-04-16] MEDS ORDERED: fentaNYL 100 MCG/2 ML INJECTION (J3010) As Ordered ONE (07:20)
[2020-04-16] MEDS ORDERED: MIDAZOLAM INJ 2MG/2ML VIAL (J2250 PER 1MG) As Ordered ONE (07:20)
[2020-04-16] MEDS ORDERED: ONDANSETRON 4MG/2ML VIAL As Ordered ONE (07:20)
[2020-04-16] MEDS ORDERED: ROCURONIUM BROMIDE 50 MG/5 ML VIAL As Ordered ONE (07:43)
[2020-04-16] MEDS: ceFAZolin SOD 2 GM in IV 1 EA IV ONE (07:53)
[2020-04-16] MEDS ORDERED: ePHEDrine SULFATE 25 MG/5 ML(5MG/ML) SYRINGE As Ordered ONE (08:12)
[2020-04-16] MEDS: CONRAY-60 60% 50ML VIAL (Q9961) As Ordered ONE (08:15)
[2020-04-16] MEDS ORDERED: ACETAMINOPHEN 1000MG 100ML IV BTL (OFIRMEV) (J0131 PER 10MG) As Ordered ONE (08:22)
[2020-04-16] MEDS ORDERED: SUGAMMADEX SODIUM 500 MG/5 ML VIAL (BRIDION) As Ordered ONE (08:44)
--- NOTE | 2020-04-16 09:13 | REP ---
INDICATION: CYSTO, BILATERAL STENT. COMPARISON: None. TECHNIQUE: For C-arm views abdomen and pelvis performed. FINDINGS: Left pelvocaliceal system is partially opacified with contrast. A left ureteral stent is placed. Right pelvocaliceal system is also partially opacified with contrast. A right ureteral stent is placed. Both stents demonstrate proximal ends in their respective renal pelvis and the distal ends in the urinary bladder. IMPRESSION: 24 seconds fluoroscopy time utilized for bilateral ureteral stent placement. <Electronically signed by Andreas Rodriguez > 04/16/20 [id number]
[2020-04-16] MEDS ORDERED: ONDANSETRON 4MG/2ML VIAL IV PRN (09:45)
[2020-04-16] MEDS ORDERED: fentaNYL 100 MCG/2 ML INJECTION (J3010) IV PRN (09:45)
[2020-04-16] MEDS ORDERED: PERCOCET 5MG/325MG TAB PO PRN (09:45)
[2020-04-16] MEDS ORDERED: oxyCODONE 5MG TAB PO PRN (09:45)
[2020-04-16] MEDS ORDERED: LR 1,000 ML IV SCH (09:45)
[2020-04-16] MEDS ORDERED: OXYB5TAB10 PO (10:01)
[2020-04-16] MEDS: oxyBUTYnin 5 MG TAB PO PRN (10:13)
[2020-04-16 11:08] VITALS: BP 150/96
--- NOTE | 2020-04-16 12:41 | RO ---
DATE OF OPERATION: 04/16/2020 PREOPERATIVE DIAGNOSIS: Gross hematuria. POSTOPERATIVE DIAGNOSIS: Gross hematuria. PROCEDURES: * Cystoscopy. * Bilateral ureteroscopy. * Bilateral retrograde pyelogram with intraop interpretation of images. * Bilateral ureteral stent placement. SURGEON: Amanuel Sands MD RING PACKER: None. ANESTHESIA: General. OPERATIVE INDICATIONS: This is an 80-year-old male who has had recurrent gross hematuria recently. He previously underwent a full hematuria workup including CT urogram as well as office cystoscopy and that was unremarkable. Since he has had recurrent gross hematuria it was recommended that he have a more thorough workup with ureteroscopy in the operating room. DESCRIPTION OF PROCEDURE: The patient was brought to the operating room and general anesthesia was induced. Prophylactic antibiotics were infused. He was placed in the dorsal lithotomy position and prepped and draped in usual sterile fashion. A rigid cystoscope was inserted into the urethral meatus and advanced into the bladder. The bladder was then thoroughly examined with both the 30 and 70-degree lenses. No bladder tumors were seen. No bladder stones were seen. There were very mild trabeculations in the bladder. Both ureteral orifices were orthotopic and effluxed clear urine. The patient had mild bilobar prostatic hyperplasia with mild outlet obstruction. At this point a guidewire was advanced up the left collecting system. I then advanced a ureteral access sheath up the left collecting system. I then went up the left collecting system with a flexible ureteroscope and of note, once inside the kidney, there was a moderate amount of erythema involving the majority of the urothelium inside the left kidney. It appeared as if there had been some trauma to the inside of the kidney, or potentially some sort of inflammatory condition. No kidney stones were seen. There was no active bleeding. At this point I decided to obtain a renal pelvic washing to be sent for cytology. This was to check for possibility of carcinoma in situ. At this point approximately 40-50 mL of saline was utilized to irrigate the left renal pelvis and this was aspirated back out and sent for left renal pelvic washing for cytology. Of note, no tumors were seen inside the kidney. At this point a retrograde pyelogram was performed and was notable for mild to moderate left hydronephrosis with no extravasation. Of note also, the erythema seen inside the kidney was only there. There was no erythema or any other abnormality seen inside the left ureter. The ureteroscope was withdrawn along with access sheath and no stones were seen inside the ureter. No tumors were seen inside the ureter. The urothelium of the entire left ureter looked completely normal as opposed to what was seen inside the kidney. At this point a guidewire was used to advance a 6-Maldivian x 23-32 cm JJ ureteral stent up the left collecting system. The wire was removed and there were adequate curls of the stent in left renal pelvis and the bladder. At this point a guidewire was advanced up the right collecting system. A ureteral access sheath was advanced up the right collecting system. I then went up the access sheath with a flexible ureteroscope and examined the right kidney. The right kidney looked completely normal. There was no erythema. There were no stones. There were no tumors. The urothelium looked completely normal. I therefore did not obtain a renal pelvic washing from the right side. I then shot a retrograde pyelogram and was notable for mild to moderate right hydronephrosis with no extravasation. I withdrew the ureteroscope along with access sheath and right ureter as well looked completely normal. I then utilized a guidewire to advance 6-Maldivian x 22-32 cm JJ ureteral stent up the right collecting system. The wire was removed and there were adequate curls of the stent in right renal pelvis and the bladder. The bladder was then emptied of all fluid and this marked the conclusion of the procedure. The patient was taken out of dorsal lithotomy position, awakened from anesthesia and transferred to recovery room in stable condition. ESTIMATED BLOOD LOSS: 10 mL. COMPLICATIONS: None. SPECIMEN: Left renal pelvic washing for cytology. PLAN: The patient will follow up in urology clinic in approximately 1-2 weeks to discuss results. We will also take his stents out in a few weeks. BERT
== END 2020-04-16 11:20 | disposition home or self-care (01) ==
LOC: M SDC 06:08
PROVIDERS: ATTEND Urology
DX: R31.0 Gross hematuria (principal); N13.30 Unspecified hydronephrosis; I12.9 Hypertensive chronic kidney disease with stage 1 through stage 4 chronic kidney disease, or unspecified chronic kidney disease; N18.30 Chronic kidney disease, stage 3 unspecified; I48.0 Paroxysmal atrial fibrillation; I25.10 Atherosclerotic heart disease of native coronary artery without angina pectoris; G47.33 Obstructive sleep apnea (adult) (pediatric); E78.00 Pure hypercholesterolemia, unspecified; G43.909 Migraine, unspecified, not intractable, without status migrainosus; G62.9 Polyneuropathy, unspecified; K21.9 Gastro-esophageal reflux disease without esophagitis; M10.9 Gout, unspecified; M79.10 Myalgia, unspecified site; N28.1 Cyst of kidney, acquired; T88.59XD Other complications of anesthesia, subsequent encounter; Z79.01 Long term (current) use of anticoagulants; Z79.899 Other long term (current) drug therapy; Z86.010 Personal history of colon polyps; Z87.891 Personal history of nicotine dependence; Z88.8 Allergy status to other drugs, medicaments and biological substances; Z95.5 Presence of coronary angioplasty implant and graft; Z96.1 Presence of intraocular lens; Z98.41 Cataract extraction status, right eye; Z98.42 Cataract extraction status, left eye
CPT/HCPCS: 52332; 74420; 88108; 88313; C1769; C1894; C2617; J0131; J0690; J1100; J2250; J2405; J3010; Q9961

== ENCOUNTER 2020-04-19 14:28 | Inpatient (IN) | payer MEDICARE ==
[~2020-04-19] VITALS: Ht 177.8 cm; Wt 97.3 kg
[~2020-04-19 14:28] MED LIST changes: +OXYB5TAB10 PO
[2020-04-19] MEDS ORDERED: NS 1,000 ML IV SCH (14:49)
[2020-04-19] MEDS ORDERED: MORPHINE 4 MG/ML 1ML VIAL/SYRINGE (J2270) IV ONE (15:00)
[2020-04-19] MEDS ORDERED: ONDANSETRON 4MG/2ML VIAL IV ONE (15:00)
[2020-04-19 15:35] LABS: BILIRUBIN, URINE MANUAL NEGATIVE (NEGATIVE); GLUCOSE, URINE (UA) MANUAL NEGATIVE (NEGATIVE); KETONE, URINE MANUAL 1+ mg/dL (NEGATIVE); UROBILINOGEN, URINE MANUAL NORMAL (NORMAL)
[2020-04-19 15:35] LABS: BASO % 0.2 % (0.0-1.0); EOS # 0.1 10^3/uL (0.0-0.5); EOS % 0.6 % (0.0-3.0); HEMATOCRIT 41.5 % (42.0-52.0); HEMOGLOBIN 13.2 g/dl (13.5-17.5); LYMPH # 2.2 10^3/uL (1.5-5.0); LYMPH % 18.4 % (24.0-44.0); MEAN CORPUSCULAR HEMOGLOBIN 31.1 pg (27.0-33.0); MEAN CORPUSCULAR HGB CONC 31.8 g/dl (32.0-36.5); MEAN CORPUSCULAR VOLUME 97.6 fl (80.0-96.0); MONO # 1.2 10^3/uL (0.0-0.8); MONO % 10.4 % (0.0-5.0); NEUTROPHILS # 8.3 10^3/uL (1.5-8.5); NEUTROPHILS % 70.1 % (36.0-66.0); PLATELET COUNT, AUTOMATED 226 10^3/uL (150-450); RED BLOOD COUNT 4.25 10^6/uL (4.30-6.10); WHITE BLOOD COUNT 11.8 10^3/uL (4.0-10.0)
[2020-04-19 15:37] LABS: RBC, URINE TNTC /hpf (0-3); SQUAMOUS EPITHELIAL CELL URINE NONE SEEN /hpf (SMALL AMT)
[2020-04-19 15:38] LABS: BACTERIA, URINE NONE SEEN; HYALINE CAST, URINE NONE SEEN /lpf (0-1)
[2020-04-19] MEDS ORDERED: LABETALOL 100MG/20ML VIAL IV STA (15:41)
[2020-04-19] MEDS ORDERED: FUROSEMIDE 20MG/2ML VIAL (J1940) IV ONE (15:45)
[2020-04-19 15:46] LABS: INR 1.37; PROTHROMBIN TIME 17.2 SECONDS (12.5-14.3)
[2020-04-19 15:47] LABS: PARTIAL THROMBOPLASTIN TIME 37.5 SECONDS (24.2-38.5)
[2020-04-19] MEDS ORDERED: HYDROMORPHONE HCL 0.5 MG/ 0.5 ML SYRINGE (J1170 PER 1) IV ONE ×3 (16:00→19:45)
[2020-04-19 16:05] LABS: ALBUMIN 3.6 GM/DL (3.2-5.2); ALT/SGPT 38 U/L (12-78); BILIRUBIN,DIRECT 0.1 MG/DL (0.0-0.2); BILIRUBIN,TOTAL 0.5 MG/DL (0.2-1.0); BLOOD UREA NITROGEN 26 MG/DL (7-18); CALCIUM LEVEL 9.2 MG/DL (8.8-10.2); CARBON DIOXIDE LEVEL 28 MEQ/L (21-32); CHLORIDE LEVEL 105 MEQ/L (98-107); CK-MB VALUE MASS 6.3 NG/ML (<3.6); CPK CREATINE PHOSPHOKINASE 562 U/L (39-308); CREATININE FOR GFR 1.31 MG/DL (0.70-1.30); GLUCOSE, FASTING 107 MG/DL (70-100); LIPASE 70 U/L (73-393); MB/CK RELATIVE INDEX 1.12 (< OR =4); POTASSIUM SERUM 4.1 MEQ/L (3.5-5.1); SODIUM LEVEL 138 MEQ/L (136-145); TOTAL PROTEIN 7.2 GM/DL (6.4-8.2); TROPONIN I < 0.02 NG/ML (< 0.10)
[2020-04-19] MEDS: GASTROGRAFIN SOLUTION 30ML PO SCH ×2 (16:22→17:12)
[2020-04-19] MEDS ORDERED: ISOVUE-370 76% 100ML VIAL As Ordered ONE (17:41)
--- NOTE | 2020-04-19 17:49 | ECGEPIP ---
[facility] - ED Test Date: 2020-04-19 Pat Name: FAIZAN ELLIS Department: Room: - Gender: Male Net Fisher: : 1940 Requested By: MARYJANE Beach Order Number: [id number] Reading MD: Heriberto Sellers Measurements Intervals [place] Rate: 62 P: 39 NV: 193 QRS: -11 QRSD: 102 T: 31 QT: 421 QTc: 430 Interpretive Statements SINUS RHYTHM WITH OCCASIONAL SUPRAVENTRICULAR PREMATURE COMPLEXES LEFTWARD AXIS NONSPECIFIC ST T WAVE CHANGES IVCD CW 03/24/[address] T WAVE CHANGES Electronically Signed on 04-19-2020 17:48:52 EST by Heriberto Sellers
[2020-04-19] MEDS ORDERED: ASCO500T PO (18:49)
[2020-04-19] MEDS ORDERED: XARE20TA PO (18:49)
[2020-04-19] MEDS ORDERED: FURO40TA2 PO (18:49)
--- NOTE | 2020-04-19 18:53 | REPVR ---
PROCEDURE INFORMATION: Exam: CT Abdomen And Pelvis With Contrast Exam date and time: 04/19/2020 5:44 PM Age: 80 years old Clinical indication: Abdominal pain; Localized; Left lower quadrant (llq); Prior surgery; Surgery date: 3-7 days post-operative; Surgery type: Bilat ureteral stents; Additional info: Llq pain S/P ureteral stents TECHNIQUE: Imaging protocol: Computed tomography of the abdomen and pelvis with intravenous contrast. Radiation optimization: All CT scans at this facility use at least one of these dose optimization techniques: automated exposure control; mA and/or kV adjustment per patient size (includes targeted exams where dose is matched to clinical indication); or iterative reconstruction. Contrast material: ISOVUE 370; Contrast volume: 100 ml; Contrast route: INTRAVENOUS (IV); COMPARISON: CT ABD PELVIS W/O FOL BY WIT 08/13/2019 8:02 AM FINDINGS: Liver: Normal. No mass. Gallbladder and bile ducts: Normal. No calcified stones. No ductal dilation. Pancreas: Normal. No ductal dilation. Spleen: Normal. No splenomegaly. Adrenal glands: Normal. No mass. Kidneys and ureters: Comparison to the previous CT abdomen pelvis study from 08/13/2019 shows interval placement of bilateral ureteral stents, with the stents in satisfactory position. High density material is seen adjacent to the distal pigtail of the left ureteral stent in the urinary bladder likely representing intravesical blood clot or infectious debris. The left renal pelvis is moderately dilated which could be indicative of an at least partial obstruction of the left ureter. There is a 3.0 x 2.6 cm hypodense mass in the medial cortex of the upper pole right kidney on image 35 of series 201 and image 67 of series 202. The mass shows some smooth slightly lobulated thickening of the medial wall of the lesion and could represent a Bosniak type IIF cyst. Stomach and bowel: A moderately large sliding-type gastric hiatal hernia is present posterior to the heart. Appendix: No evidence of appendicitis. Intraperitoneal space: Unremarkable. No free air. No significant fluid collection. Vasculature: Unremarkable. No abdominal aortic aneurysm. Lymph nodes: Unremarkable. No enlarged lymph nodes. Urinary bladder: See "Kidneys and ureters" finding. Reproductive: Unremarkable as visualized. Bones/joints: Moderate chronic degenerative vertebral body endplate osteophytic disease is seen in the mid to lower thoracic spine. Mild dextroscoliosis of the thoracolumbar spine, apex at T12/L1. Chronic degenerative discovertebral disease with vacuum disc phenomenon is seen at L2/L3 and at L4/L5. Soft tissues: Unremarkable. IMPRESSION: 1. Comparison to the previous CT abdomen pelvis study from 08/13/2019 shows interval placement of bilateral ureteral stents, with the stents in satisfactory position. High density material is seen adjacent to the distal pigtail of the left ureteral stent in the urinary bladder likely representing intravesical blood clot or infectious debris. The left renal pelvis is moderately dilated which could be indicative of an at least partial obstruction of the left ureter. 2. There is a 3.0 x 2.6 cm hypodense mass in the medial cortex of the upper pole right kidney on image 35 of series 201 and image 67 of series 202. The mass shows some smooth slightly lobulated thickening of the medial wall of the lesion and could represent a Bosniak type IIF cyst. Recommend CT without and with contrast or MR without and with contrast at 6 months and 12 months, then yearly for 5 years. Reference: Theresa MAJOR, Management of the Incidental Renal Mass on CT: A White Paper of the ACR Incidental Findings Committee, J Am Ariana Radiol 2018. 3. A moderately large sliding-type gastric hiatal hernia is present posterior to the heart. 4. Moderate chronic degenerative vertebral body endplate osteophytic disease is seen in the mid to lower thoracic spine. Mild dextroscoliosis of the thoracolumbar spine, apex at T12/L1. Chronic degenerative discovertebral disease with vacuum disc phenomenon is seen at L2/L3 and at L4/L5. Electronically signed by: Ismael Sanabria On 04/19/2020 18:53:30 PM
--- NOTE | 2020-04-19 20:10 | HPEPDOC ---
[facility] Medical History & Physical Date of Admission Apr 19, 2020 Date of Service: Apr 19, 2020 Primary Care Physician: Marcus Gagnon Attending Physician: MICHELLE CHENG MD History and Physical TIME OF SERVICE: 8:20 PM CHIEF COMPLAINT: Abdominal pain HISTORY OF PRESENT ILLNESS: This 80-year-old gentleman presented with complaints of acute worsening of his chronic left lower quadrant abdominal pain last night. The pain tends to get worse when he lies on his left side, is so severe that it wakes him up from sleeping and has persisted despite taking tramadol. His last BM was 2 days ago; he takes Miralax daily. He has been having recurrent gross hematuria for several months; on Apr 16 he had cystoscopy and bilateral ureteral stents placed. After the procedure has continued to have a bit of blood in the urine. Initially he received morphine which didn't alleviate the abdominal pain and was subsequently give Dilaudid which seemed to help. Because of the CT scan findings of left ureteral obstruction called who was of the opinion that the abdominal pain was not likely related to these findings. REVIEW OF SYSTEMS: 12 point review of systems negative except as listed in HPI PAST MEDICAL/ SURGICAL HISTORY: CAD with placement of BALJINDER in the RCA in 2010 and 5 BALJINDER placed in the mid and distal LAD proximal LCx proximal right and posterior lateral branch of RCA in June 2019 is on clopidogrel (ASA was dc'd) Atrial fibrillation, status post ablations 2 (2016 and 2018) and DC cardioversions x2 (2015 & 2017) is on Xarelto Dyslipidemia Gout Labile blood pressure with history of episodes of accelerated Hypertension / orthostatic hypotension Diverticulitis CKD 3 with secondary hyperparathyroidism Chronic right-sided renal cyst 3 cm FLIP CPAP 13 cm water Sleep disorder Chronic back pain / spinal stenosis Sliding gastric hiatal hernia Buccal procedure Vitrectomy Pneumatic retinopexy for left eye detachment 2003 Resection of adenomatous colonic polyp 2015 Bilateral cataract surgery (right eye 2003) Cystoscopy and placement of bilateral ureteral stents March 2020 History of left atrial thrombus in 2017 Appendectomy 195 Tonsillectomy 194 Lap right inguinal hernia repair 1994 Implantation of loop recorder SOCIAL HISTORY: Is a former smoker and quit at 21 years of age 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 HOME MEDICATIONS: Please see below. PHYSICAL EXAMINATION: VITAL SIGNS: Please see below. GEN: well-nourished / well developed/ NAD INTEGUMENT: not flushed/ not jaundice HEENT: lips acyanotic /mucus membranes moist and pink CVS: RRR/NMRG/ radial pulses intact / no lower extremity edema LUNGS: able to speak full sentences without stopping to take a breath / no coughing / lungs are clear to auscultation bilaterally on room air ABDOMEN: there are no masses or lesions / bowel sounds are present / the abdomen is soft & tender with deep palpation of the left lower lateral quandrant MSK/EXTREMITIES: NCAT / range of motion intact in all 4 extremities NEURO: CN 2-12 are grossly intact except for hearing has hearing aides / speech is not dysarthric PSYCH: alert and oriented to person place and time/ able to understand and follow all commands LABORATORY DATA: Laboratory Tests 04/19/20 15:00 04/19/20 21:40 Laboratory Tests 2 04/19/20 15:00: Immature Granulocyte % (Auto) 0.3, Neutrophils (%) (Auto) 70.1H, Lymphocytes (%) (Auto) 18.4L, Monocytes (%) (Auto) 10.4H, Eosinophils (%) (Auto) 0.6, Basophils (%) (Auto) 0.2, Neutrophils # (Auto) 8.3, Lymphocytes # (Auto) 2.2, Monocytes # (Auto) 1.2H, Eosinophils # (Auto) 0.1, Basophils # (Auto) 0.0, Nucleated Red Blood Cells % (auto) 0.0, Prothrombin Time 17.2H, Prothromb Time International Ratio 1.37, Activated Partial Thromboplast Time 37.5, Anion Gap 5L, Glomerular Filtration Rate 56.0, Calcium Level 9.2, Total Bilirubin 0.5, Direct Bilirubin 0.1, Aspartate Amino Transf (AST/SGOT) 62H, Alanine Aminotransferase (ALT/SGPT) 38, Alkaline Phosphatase 89, Total Creatine Kinase 562H, Creatine Kinase MB 6.3H, Creatine Kinase MB Relative Index 1.12, Troponin I < 0.02, Total Protein 7.2, Albumin 3.6, Albumin/Globulin Ratio 1.0, Lipase 70L 04/19/20 15:23: Urine Color (DUARTE) REDH, Urine Appearance (DUARTE) TURBIDH, Urine pH (DUARTE) 7.0, Urine Specific [place] (DUARTE) 1.010, Urine Protein 3+H, Bedside Urine Glucose (UA) NEGATIVE, Bedside Urine Ketones (LAB) 1+H, Bedside Urine Blood POSITIVEH, Bedside Urine Nitrite (LAB) NEGATIVE, Bedside Urine Bilirubin (LAB) NEGATIVE, Bedside Urine Urobilinogen (LAB) NORMAL, Bedside Urine Leukocyte Esterase (L POSITIVEH, Urine Sediment Examination PERFORMED, Urine RBC TNTCH, Urine WBC 5- 7H, Urine Squamous Epithelial Cells NONE SEEN, Urine Bacteria NONE SEEN, Urine Hyaline Casts NONE SEEN IMAGING: CT abd/pelvis " 1. Comparison to the previous CT abdomen pelvis study from 08/13/2019 shows interval placement of bilateral ureteral stents, with the stents in satisfactory position. High density material is seen adjacent to the distal pigtail of the left ureteral stent in the urinary bladder likely representing intravesical blood clot or infectious debris. The left renal pelvis is moderately dilated which could be indicative of an at least partial obstruction of the left ureter. 2. There is a 3.0 x 2.6 cm hypodense mass in the medial cortex of the upper pole right kidney on image 35 of series 201 and image 67 of series 202. The mass shows some smooth slightly lobulated thickening of the medial wall of the lesion and could represent a Bosniak type IIF cyst. Recommend CT without and with contrast or MR without and with contrast at 6 m onths and 12 months, then yearly for 5 years. Reference: Theresa BR, Management of the Incidental Renal Mass on CT: A White Paper of the ACR Incidental Findings Committee, J Am Ariana Radiol 2018. 3. A moderately large sliding-type gastric hiatal hernia is present posterior to the heart. 4. Moderate chronic degenerative vertebral body endplate osteophytic disease is seen in the mid to lower thoracic spine. Mild dextroscoliosis of the thoracolumbar spine, apex at T12/L1. Chronic degenerative discovertebral disease with vacuum disc phenomenon is seen at L2/L3 and at L4/L5." MICROBIOLOGY: Please see below. ASSESSMENT: is an 80 yr old w a hx of CAD w multiple BALJINDER, Afib on xarelto, DLP, Gout, HTN / orthostatic hypotension, CKD 3, FLIP & chronic back pain who presented w c/o of acute on chronic LLQ abdominal pain; he will be admitted for management of acute abd pain, HTN Urgency and evaluation of possible partial L ureter obstruction. PLAN: 1. Hypertensive Urgency His BP was as high as 240/110 in the ER. It is possible the acute elevation today was partially caused by his acute abdominal pain. The acute elevation resolved after he received IV labetalol. Based on the patient has a hx of labile blood pressures with episodes of accelerated Hypertension and orthostatic hypotension. The work up for secondary causes of HTN was negative and they have been working on titrating his meds with his Lining Stuffer and a HTN specialist in [place] for several years . Plan: admit to PCU /will aim to lower BP by 25% w/in the first 2-4 hours with target BP of <160/100 / avoid excessive environmental stimuli / resume lasix & metoprolol / will not add more BP meds as this time because he has had issues with orthostasis / low salt diet / f/u w PCP, Lining Stuffer and HTN specialist as scheduled 2. Acute on chronic LLQ abdominal pain Cause is unclear The pain improved w Dilaudid Plan: c/w dicyclomine / switch from tramadol and codeine sulfate to Dilaudid / will ask the day time team to switch from IV to PO Dilaudid & dc the tramadol and codeine sulfate if they feel it is appropriate 3. Possible left ureter partial obstruction Plan: f/u with 4. Hematuria Plan: trend Hg, f/u iron studies / f/u w on Path results from urine cytology on an out pt basis / c/w Plavix and Xarelto for now 5. Macrocytic anemia Likely multifactorial Had adenomatous polyp in 2016 Plan: trend Hg & f/u iron studies / f/u w PCP to discuss GI referal 6. UTI UA + RBC, WBC, Leuk Est Plan: bc of instrumentation 3 days ago will treat with Levofloxacin / f/u UCx 7. Elevated CPK Cause TBD He has had episodes of elevated CK occasionally as far back as 2012. Per 's notes had c/o myalgias related to atorvastatin in the past. Plan: IVF / trend CK / can discuss starting Co-enzyme Q10 30 to 250 mg/day to try mitigate the side effects of the statins (if the elevation of the CK is due to statins) with his PCP 8. Mild Transaminitis Hep C neg 2019 Plan: f/u with PCP to discuss Liver US 9. Constipation Has BMs about every 2 days rather than at least daily Plan: c/w Miralax 17 G daily / add Senokot S 1 tab BID scheduled / bisacodyl 5mg daily PRN 10. Possible pulmonary nodules Plan: scheduled for out pt CT of the chest in the near future 11.CAD Most recent BALJINDER were placed in June 2019 Plan: clopidogrel, metoprolol, rosuvastatin 12.Atrial fibrillation Plan: Xarelto 13. Dyslipidemia Plan: rosuvastatin 14.Gout Plan: allopurinol 15. CKD 3 with secondary hyperparathyroidism Plan: calcitriol 16. Chronic right-sided renal cyst 3 cm FLIP CPAP 13 cm water 17. Sleep disorder Plan: Rozerem 18. Chronic Back pain Plan: Flector patches DVT PROPHYLAXIS: n/a on NOAC DISPOSITION: likely home after less than 2 midnight's stay Home Medications Scheduled Allopurinol (Zyloprim) 300 Mg Tab, 300 MG PO DAILY Ascorbic Acid (Ascorbic Acid) 500 Mg Tablet, 1,000 MG PO DAILY Brinzolamide (Azopt) 1 % Nina, 1 DROP OU BID Calcitriol (Rocaltrol) 0.5 Mcg Capsule, 0.5 MCG PO DAILY Carboxymethyl/Glycerin/Poly80 (Refresh Optive Advanced Drops) 10 Ml Drops, 1 DROP OU QID Clopidogrel Bisulfate (Plavix) 75 Mg Tablet, 75 MG PO DAILY Furosemide (Furosemide) 40 Mg Tablet, 20 MG PO DAILY Metoprolol Succinate (Metoprolol Succinate) 25 Mg Tab, 25 MG PO QHS Rivaroxaban (Xarelto) 20 Mg Tablet, 20 MG PO QHS Rosuvastatin Calcium (Rosuvastatin Calcium) 10 Mg Tablet, 20 MG PO QHS Sennosides/Docusate Sodium (Senokot-S Tablet) 1 Each Tablet, 1 TAB PO Q12H Scheduled PRN Albuterol Sulfate (Ventolin Hfa) 18 Gm Hfa.aer.ad, 2 PUFF INH TID PRN for wheezing Bisacodyl (Dulcolax) 5 Mg Tablet.dr, 5 MG PO DAILY PRN for BOWEL CARE/CONSTIPATION Codeine Sulfate (Codeine Sulfate) 30 Mg Tablet, 30 MG PO QID PRN for pain Diclofenac Sodium (Voltaren) 100 Gm Gel..gram., 2 GM TOP BID PRN for PAIN APPLY TO JOINTS AND LOWER BACK Dicyclomine HCl (Dicyclomine HCl) 20 Mg Tablet, 20 MG PO QHS PRN for IRRITABLE BOWEL Fluticasone Propionate (Flonase Allergy Relief) 50 Mcg/Act Spr, 2 SPRAYS NARES DAILY PRN for CONGESTION Furosemide (Furosemide) 40 Mg Tablet, 20 MG PO DAILY PRN for WATER RETENTION/ EDEMA Loratadine (Loratadine) 10 Mg Tab.rapdis, 10 MG PO DAILY PRN for ALLERGY SYMPTOMS Pantoprazole Sodium (Pantoprazole Sodium) 40 Mg Tab, 40 MG PO DAILY PRN for HEARTBURN Polyethylene Glycol 3350 (Miralax) 119 Gm Powder, 17 GRAM PO DAILY PRN for CONSTIPATION MIX IN 8 OUNCES OF WATER OR JUICE Ramelteon (Rozerem) 8 Mg Tablet, 8 MG PO QPM PRN for insomnia Tramadol HCl (Tramadol HCl) 50 Mg Tab, 50 MG PO QHS PRN for PAIN Allergies Coded Allergies: apixaban (Verified Adverse Reaction, Intermediate, ATAXIA, 04/04/20) bisoprolol (Verified Adverse Reaction, Intermediate, BRADYCARDIA, 04/04/20) dofetilide (Verified Adverse Reaction, Intermediate, V TACH, 04/04/20) amlodipine (Verified Adverse Reaction, Mild, EDEMA, 04/04/20) atorvastatin (Verified Adverse Reaction, Mild, MUSCLE WEAKNESS, 04/04/20) A-FIB/CHADSVASC A-FIB History Current/History of A-Fib/PAF?: Yes Current PO Anticoag Therapy: Yes MICHELLE CHENG MD Apr 19, 2020 20:10
[2020-04-19] MEDS ORDERED: ACETAMINOPHEN TAB 650MG DOSE (2X325MG) PO PRN (20:15)
[2020-04-19] MEDS ORDERED: HYDROMORPHONE HCL 0.5 MG/ 0.5 ML SYRINGE (J1170 PER 1) IV PRN ×2 (20:15)
[2020-04-19] MEDS ORDERED: MAALOX 30 ML SUSP *UDC PO PRN (20:15)
[2020-04-19] MEDS ORDERED: MOM 30ML SUSPENSION UDC PO PRN (20:15)
[2020-04-19] MEDS ORDERED: RIVAROXABAN 20 MG TAB (XARELTO) PO SCH (21:00)
[2020-04-19] MEDS ORDERED: PANTOPRAZOLE 40MG TAB (PROTONIX) PO PRN (21:45)
[2020-04-19] MEDS ORDERED: DICYCLOMINE 10 MG CAP PO PRN (21:45)
[2020-04-19] MEDS ORDERED: FLUTICASONE PROP 0.05% NASAL SPRAY 16 GM (FLONASE) NARES PRN (21:45)
[2020-04-19] MEDS ORDERED: ALBUTEROL 90 MCG/ACT 8GM HFA INHALER INH PRN (21:45)
[2020-04-19] MEDS ORDERED: FUROSEMIDE 40 MG TAB PO PRN (21:45)
[2020-04-19] MEDS ORDERED: SENOKOT S TAB PO SCH (21:45)
[2020-04-19] MEDS ORDERED: POLYVINYL ALCOHOL OPHTH SOLN 15 ML(LIQUITEARS) OU PRN (21:45)
[2020-04-19] MEDS ORDERED: SENNA 8.6 MG TAB (SENOKOT) PO PRN (21:45)
[2020-04-19] MEDS ORDERED: LORATADINE 10 MG TAB PO PRN (21:45)
[2020-04-19 22:03] LABS: INR 1.3; PROTHROMBIN TIME 16.5 SECONDS (12.5-14.3)
[2020-04-19 22:04] LABS: PARTIAL THROMBOPLASTIN TIME 36.5 SECONDS (24.2-38.5)
[2020-04-19 22:20] VITALS: BP 150/88
[2020-04-20] VITALS (7 sets, daily range): BP systolic 107–172; BP diastolic 60–86
[2020-04-20] MEDS ORDERED: BISACODYL 5 MG TAB PO PRN ×2 (00:30→20:30)
[2020-04-20] MEDS: ROSUVASTATIN 10 MG TAB (CRESTOR) PO SCH ×2 (00:58→21:06)
[2020-04-20] MEDS: LevoFLOXacin 250 MG TABLET PO SCH ×2 (00:58→16:46)
[2020-04-20] MEDS: BRINZOLAMIDE 1 % OPHTH SUSP (AZOPT) 10ML OU SCH ×3 (00:58→21:36)
[2020-04-20] MEDS: RAMELTEON 8 MG TAB (ROZEREM) PO SCH ×2 (00:59→21:06)
[2020-04-20] MEDS: METOPROLOL SUCC *XL* 25MG TAB (TopROL *XL*) PO SCH ×2 (01:00→21:34)
[2020-04-20] MEDS: DICLOFENAC EPOLAMINE 1.3 % PATCH TOP SCH ×3 (01:04→20:45)
[2020-04-20] MEDS ORDERED: DULC5TAB PO (01:06)
[2020-04-20] MEDS ORDERED: SENO8.6T10 PO (01:06)
[2020-04-20] MEDS: SENOKOT S TAB PO SCH ×3 (01:08→21:06)
[2020-04-20] MEDS ORDERED: ROZE8TAB16 PO (01:10)
[2020-04-20 05:57] LABS: HEMATOCRIT 35.9 % (42.0-52.0); HEMOGLOBIN 11.8 g/dl (13.5-17.5); MEAN CORPUSCULAR HEMOGLOBIN 32.2 pg (27.0-33.0); MEAN CORPUSCULAR HGB CONC 32.9 g/dl (32.0-36.5); MEAN CORPUSCULAR VOLUME 97.8 fl (80.0-96.0); PLATELET COUNT, AUTOMATED 185 10^3/uL (150-450); RED BLOOD COUNT 3.67 10^6/uL (4.30-6.10); WHITE BLOOD COUNT 11.5 10^3/uL (4.0-10.0)
[2020-04-20 06:20] LABS: BILIRUBIN,TOTAL 0.4 MG/DL (0.2-1.0); CALCIUM LEVEL 8.4 MG/DL (8.8-10.2); CREATININE FOR GFR 1.46 MG/DL (0.70-1.30); GLOMERULAR FILTRATION RATE 49.5 (>35); MAGNESIUM LEVEL 2.2 MG/DL (1.8-2.4); TOTAL PROTEIN 6.1 GM/DL (6.4-8.2)
[2020-04-20] MEDS: CLOPIDOGREL 75 MG TAB PO SCH (08:56)
[2020-04-20] MEDS: allopurinoL 300 MG TAB PO SCH (08:56)
[2020-04-20] MEDS: ASCORBIC ACID 500 MG TAB PO SCH (08:56)
[2020-04-20] MEDS: CALCITRIOL 0.25 MCG CAP (S0169) PO SCH (08:56)
[2020-04-20] MEDS ORDERED: FUROSEMIDE 40 MG TAB PO SCH (09:00)
--- NOTE | 2020-04-20 09:06 | SMCUROLCON ---
Urology Consultation General Date of Consultation 04/20/20 Reason For Consultation This patient is seen for Abdominal Pain, Hypertensive Urgency. History of Present Illness The patient is a [80]-year-old [man] with a past medical history for [HTN, afib and recent urologic procedure]. He came to ER with left lower abdominal pain and hematuria. He has bilateral ureteral stents in place and is on anticoagulation therapy for his afib. Medications Current Medications Current Medications Medications (Trade) Dose Ordered Sig/Dana Route PRN Reason Start Time Stop Time Status Last Admin Dose Admin Acetaminophen (Tylenol Tab) 650 mg Q4H PRN PO PAIN OR FEVER 04/19/20 20:15 Al Hydrox/Mg Hydrox/Simethicone (Mylanta) 30 ml DAILY PRN PO DYSPEPSIA 04/19/20 20:15 Albuterol Sulfate (Proventil, Ventolin Hfa) 2 puff TID PRN INH wheezing 04/19/20 21:45 Allopurinol (Zyloprim) 300 mg DAILY PO 04/20/20 09:00 Artificial Tears (Akwa Tears) 1 drop QIDP PRN OU DRY EYES 04/19/20 21:45 04/20/20 03:09 Ascorbic Acid (Vitamin C) 1,000 mg DAILY PO 04/20/20 09:00 Bisacodyl (Dulcolax Tab) 5 mg DAILY PRN PO constipation 04/20/20 00:30 Brinzolamide (Azopt) 1 drop BID OU 04/19/20 21:45 04/20/20 00:58 Calcitriol (Rocaltrol) 0.5 mcg DAILY PO 04/20/20 09:00 Clopidogrel Bisulfate (PLAVix) 75 mg DAILY PO 04/20/20 09:00 Diatrizoate Meglum/ Diatrizoate Sod (Gastrografin) 10 ml Q30M PO 04/19/20 16:15 04/19/20 16:46 DC 04/19/20 17:12 Diclofenac Epolamine (Flector 1.3%) 1 patch Q12H TOP 04/19/20 21:00 04/20/20 01:04 Dicyclomine HCl (Bentyl) 20 mg QHS PRN PO IBS 04/19/20 21:45 Fluticasone Propionate (Flonase 0.05% Nasal [place]) 2 spray DAILY PRN NARES CONGESTION 04/19/20 21:45 Furosemide (Lasix) 20 mg DAILY PO 04/20/20 09:00 Furosemide (Lasix) 20 mg DAILY PRN PO WATER RETENTION/ EDEMA 04/19/20 21:45 Home Med (Med Rec Complete!) ASDIRECTED XX 04/19/20 19:00 04/19/20 18:51 DC Hydromorphone HCl (Dilaudid) 0.3 mg Q3HP PRN IV MILD PAIN (PS 1-4) 04/19/20 20:15 04/20/20 02:50 Hydromorphone HCl (Dilaudid) 0.6 mg Q3HP PRN IV MODERATE PAIN (PS 5-7) 04/19/20 20:15 04/20/20 04:56 Labetalol HCl (Normodyne, Trandate) 10 mg STAT STAT IV 04/19/20 15:41 04/19/20 15:43 DC 04/19/20 15:46 Levofloxacin (Levaquin) 250 mg DAILY@1800 PO 04/19/20 23:15 04/20/20 00:58 Loratadine (Claritin) 10 mg DAILY PRN PO ALLERGIES 04/19/20 21:45 Magnesium Hydroxide (Milk Of Magnesia) 30 ml DAILY PRN PO CONSTIPATION 04/19/20 20:15 04/20/20 01:03 DC Metoprolol Succinate (TopROL XL) 25 mg QHS PO 04/19/20 21:45 04/20/20 01:00 Pantoprazole Sodium (Protonix) 40 mg DAILY PRN PO HEARTBURN 04/19/20 21:45 Polyethylene Glycol (Miralax) 1 pkt DAILY PO 04/20/20 09:00 Ramelteon (Rozerem) 8 mg QHS PO 04/19/20 21:45 04/20/20 00:59 Rivaroxaban (Xarelto) 20 mg QHS PO 04/19/20 21:00 04/20/20 01:00 Rosuvastatin Calcium (Crestor) 20 mg QHS PO 04/19/20 21:45 04/20/20 00:58 Senna (Senokot) 1 tab Q12HP PRN PO CONSTIPATION 04/19/20 21:45 04/20/20 01:03 DC Senna/Docusate Sodium (Senokot S) 1 tab BID PO 04/20/20 00:30 04/20/20 01:08 Senna/Docusate Sodium (Senokot S) 1 tab QHS PO 04/19/20 21:45 04/20/20 01:03 DC Sodium Chloride 1,000 ml @ 100 mls/hr Q10H IV 04/19/20 14:49 04/20/20 00:15 DC 04/19/20 15:17 Allergies Allergies: Coded Allergies: apixaban (Verified Adverse Reaction, Intermediate, ATAXIA, 04/04/20) bisoprolol (Verified Adverse Reaction, Intermediate, BRADYCARDIA, 04/04/20) dofetilide (Verified Adverse Reaction, Intermediate, V TACH, 04/04/20) amlodipine (Verified Adverse Reaction, Mild, EDEMA, 04/04/20) atorvastatin (Verified Adverse Reaction, Mild, MUSCLE WEAKNESS, 04/04/20) Physical Examination General Exam: Cooperative, Mild Distress EYE EXAM: PERRLA, Conjunctiva & lids normal, EOMI; No: Sclera icteric ENT EXAM: Atraumatic, Mucous membr. moist/pink, Pharynx Normal Neck Exam: Supple; No: JVD, thyromegaly Abdomen Exam: Normal Bowel Sounds, BS Hyperactive, BS Hypoactive, Soft, Tenderness, Hepatospenomegaly, Mass, Hernia, Other (mild left lower quadrant tenderness without surgical signs) Male Exam normal genitalia Vital Signs/I&O Vital Signs Date Time Temp Pulse Resp B/P (MAP) Pulse Ox O2 Delivery O2 Flow Rate FiO2 04/20/20 08:30 97.4 62 18 149/68 (95) 98 Room Air I&O- Last 24 Hours up to 6 AM 04/20/20 05:59 Intake Total 1100 ml Output Total 1950 ml Balance -850 ml Laboratory Data 24H Labs Laboratory Tests 2 04/19/20 15:00: Immature Granulocyte % (Auto) 0.3, Neutrophils (%) (Auto) 70.1H, Lymphocytes (%) (Auto) 18.4L, Monocytes (%) (Auto) 10.4H, Eosinophils (%) (Auto) 0.6, Basophils (%) (Auto) 0.2, Neutrophils # (Auto) 8.3, Lymphocytes # (Auto) 2.2, Monocytes # (Auto) 1.2H, Eosinophils # (Auto) 0.1, Basophils # (Auto) 0.0, Nucleated Red Blood Cells % (auto) 0.0, Prothrombin Time 17.2H, Prothromb Time International Ratio 1.37, Activated Partial Thromboplast Time 37.5, Anion Gap 5L, Glomerular Filtration Rate 56.0, Calcium Level 9.2, Total Bilirubin 0.5, Direct Bilirubin 0.1, Aspartate Amino Transf (AST/SGOT) 62H, Alanine Aminotransferase (ALT/SGPT) 38, Alkaline Phosphatase 89, Total Creatine Kinase 562H, Creatine Kinase MB 6 .3H, Creatine Kinase MB Relative Index 1.12, Troponin I < 0.02, Total Protein 7.2, Albumin 3.6, Albumin/Globulin Ratio 1.0, Lipase 70L 04/19/20 15:23: Urine Color (DUARTE) REDH, Urine Appearance (DUARTE) TURBIDH, Urine pH (DUARTE) 7.0, Urine Specific [place] (DUARTE) 1.010, Urine Protein 3+H, Bedside Urine Glucose (UA) NEGATIVE, Bedside Urine Ketones (LAB) 1+H, Bedside Urine Blood POSITIVEH, Bedside Urine Nitrite (LAB) NEGATIVE, Bedside Urine Bilirubin (LAB) NEGATIVE, Bedside Urine Urobilinogen (LAB) NORMAL, Bedside Urine Leukocyte Esterase (L POSITIVEH, Urine Sediment Examination PERFORMED, Urine RBC TNTCH, Urine WBC 5- 7H, Urine Squamous Epithelial Cells NONE SEEN, Urine Bacteria NONE SEEN, Urine Hyaline Casts NONE SEEN 04/19/20 19:52: Coronavirus (COVID-19)(PCR) NEGATIVE 04/19/20 21:40: Prothrombin Time 16.5H, Prothromb Time International Ratio 1.30, Activated Partial Thromboplast Time 36.5 04/20/20 05:25: Nucleated Red Blood Cells % (auto) 0.0, Anion Gap 6L, Glomerular Filtration Rate 49.5, Calcium Level 8.4L, Magnesium Level 2.2, Total Bilirubin 0.4, Aspartate Amino Transf (AST/SGOT) 41H, Alanine Aminotransferase (ALT/SGPT) 30, Alkaline Phosphatase 71, Total Creatine Kinase 327H, Total Protein 6.1L, Albumin 3.0L, Albumin/Globulin Ratio 1.0 CBC/BMP Laboratory Tests 04/19/20 15:00 04/19/20 21:40 04/20/20 05:25 Microbiology Microbiology 04/19/20 Urine Culture, Received Pending Assessment Left lower quadrant pain and hematuria in this 80 yo man on anticoagulation and with bilateral ureteral stents in place. I believe the pain is in part from spasms and this is contributing to the bleeding. As long as his bleeding stabilizes, I am not worried about it. I would continue oral and IV hydration and add medication to assist with his spasms. Plan I will follow with you. No need for any aggressive intervention at this time. NEGRITA MORA MD Apr 20, 2020 09:06
[2020-04-20] MEDS: MIRALAX *UNIT DOSE* 17GM PACKET PO SCH (09:09)
[2020-04-20] MEDS ORDERED: BELLADONNA 16.2mg/OPIUM 60mg 1 EA SUPP PR PRN (09:15)
[2020-04-20] MEDS ORDERED: HYDROmorphone 2 MG TAB PO PRN (09:15)
[2020-04-20] MEDS ORDERED: ANEXSIA, NORCO 7.5MG/325MG TABLET(HYDROCODONE/APAP) PO ONE (09:30)
[2020-04-20] MEDS: NS 1,000 ML IV SCH ×2 (09:31→21:38)
[2020-04-20] MEDS ORDERED: traMADol 50 MG TAB PO PRN (10:30)
--- NOTE | 2020-04-20 10:32 | IPNPDOC ---
Text Note Date of Service The patient was seen on 04/20/20. NOTE Subjective: Patient was seen and examined this morning at bedside. Tells me that a lot of his health and his abdominal pain is now much better. Continues to come and go intermittently. Dr. Romero urology was here to see him earlier this morning. Nurse reports there was no overnight events. Objective: Constitutional: Awake and alert, in no apparent distress ENT: Sclera are clear. Mucosa is moist. Respiratory: Lungs CTA bilaterally. No respiratory distress. No use of a ccessory muscles. Cardiovascular: RRR S1 and S2 are normal Gastrointestinal: Abdomen is soft, non distended, non tender, BS present. Musculoskeletal: No LE edema. No joint deformities. RUE 5/5, LUE 5/5, BLE 5/5 Neurologic: No focal neurological deficit. 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 # Acute on chronic LLQ abdominal pain: per Dr Romero urology, likely 2/2 ureter spasms from the ureteral stents. IVFs and Pain control. [place] PRN for pain 5-10 and PO dilaudid for breakthrough pain. Continue dicyclomine and tramadol at night. # Possible left ureter partial obstruction from blood clots. Discussed with Dr Romero, ok to keep stents in for now; encouraged more PO hydration. Fu with Dr Sands. # Hypertensive Urgency: Now improved. could be 2/2 to the acute abdominal pain he had night prior to admission. hx of labile blood pressures with episodes of accelerated Hypertension and orthostatic hypotension. The work up for secondary causes of HTN was negative and they have been working on titrating his meds with his Patient Svcs Mgr and a HTN specialist in [place] for several years . Fu w PCP, Patient Svcs Mgr and HTN specialist as scheduled # Hematuria: Trend Hgb. Continue Plavix. Spoke with his cardiology Dr Galvez and we will hold his xarelto for now, currently EKG shows he's in NSR. Urology Dr Romero consulted who beleives the hematuria is from the stents but they should stay in for longer if his hgb doesn't drop much further. Recommends pain control, hydration, and to follow up with Dr Sands in clinic at scheduled appointment next week. Fu on Path results from urine cytology at appointment next week. # Macrocytic anemia. Likely multifactorial . Had adenomatous polyp in 2016. trend Hg. Fu PCP to discuss GI referal # UTI: UA + RBC, WBC, Leuk Est. b/c of instrumentation 3 days ago will treat with Levofloxacin. Fu UCx. # Elevated CPK: Cause TBD. He has had episodes of elevated CK occasionally as far back as 2012. Per 's notes had c/o myalgias related to atorvastatin in the past. IVF. Trend CK improved. # Mild Transaminitis: Hep C neg 2018. f/u with PCP to discuss Liver US # Constipation: Miralax, Senaokt S scheduled, Biascodyl PRN. # Possible pulmonary nodules: scheduled for out pt CT of the chest Tuesday # CAD: Most recent BALJINDER were placed in June 2019. Clopidogrel, xarelto, metoprolol, rosuvastatin # Atrial fibrillation: hold xarelto given hematuria for now. Discussed this with Dr Galvez his catering assistant. Currently NSR. # Dyslipidemia: rosuvastatin # Gout: allopurinol # CKD 3 with secondary hyperparathyroidism: calcitriol # Chronic right-sided renal cyst 3 cm # FLIP: CPAP 13 cm water # Sleep disorder: Rozerem # Chronic Back pain: Flector patches A Jarod Hospitalist VSKim, I+O VS, Kim I+O Laboratory Tests 04/19/20 15:00 04/19/20 21:40 04/20/20 05:25 Vital Signs Date Time Temp Pulse Resp B/P (MAP) Pulse Ox O2 Delivery O2 Flow Rate FiO2 04/20/20 09:21 18 Room Air 04/20/20 08:30 97.4 62 149/68 (95) 98 I&O- Last 24 Hours up to 6 AM 04/20/20 06:00 Intake Total 1100 ml Output Total 1950 ml Balance -850 ml NAY GAONA MD Apr 20, 2020 10:32
[2020-04-20] MEDS: ANEXSIA, NORCO 7.5MG/325MG TABLET(HYDROCODONE/APAP) PO PRN ×2 (16:45→23:17)
[2020-04-20] MEDS: FUROSEMIDE 20 MG TAB PO SCH (16:46)
[2020-04-21] VITALS (7 sets, daily range): BP systolic 137–183; BP diastolic 78–90
--- NOTE | 2020-04-21 07:38 | IPNPDOC ---
Subjective Review oF Systems Chief Complaint The patient is a 80-year-old male admitted with a reason for visit of Abdominal Pain, Hypertensive Urgency. Events since Last Encounter His urine remains dark but there are fewer clots than before. His pain is also better controlled. He had some mild difficulty with voiding but this improved with increased intake. Objective Physical Examination ABDOMEN EXAM: Normal bowel sounds, Other (His bladder is not palpably distended; no appreciable tenderness) Vital Signs/I&O Vital Signs Date Time Temp Pulse Resp B/P (MAP) Pulse Ox O2 Delivery O2 Flow Rate FiO2 04/21/20 04:00 97.7 59 18 183/88 (119) 96 Room Air I&O- Last 24 Hours up to 6 AM 04/21/20 06:00 Intake Total 2580 ml Output Total 2555 ml Balance 25 ml Laboratory Data Labs 24H Laboratory Tests 2 04/21/20 04:35: Total Creatine Kinase 273 CBC/BMP Laboratory Tests 04/20/20 21:09 Microbiology Microbiology 04/19/20 Urine Culture - Final, Complete Assessment/Plan Date Seen The patient was seen on 04/21/20. Plan/VTE VTE Prophylaxis Ordered?: No Plan Given the general stability of his hemoglobin, I am in favor of his discharge home and follow up as arranged next Tuesday. He will continue medications as prescribed. NEGRITA MORA MD Apr 21, 2020 07:38
[2020-04-21 09:38] LABS: HEMATOCRIT 34.7 % (42.0-52.0); HEMOGLOBIN 11.4 g/dl (13.5-17.5); MEAN CORPUSCULAR HEMOGLOBIN 31.9 pg (27.0-33.0); MEAN CORPUSCULAR HGB CONC 32.9 g/dl (32.0-36.5); MEAN CORPUSCULAR VOLUME 97.2 fl (80.0-96.0); PLATELET COUNT, AUTOMATED 216 10^3/uL (150-450); RED BLOOD COUNT 3.57 10^6/uL (4.30-6.10); WHITE BLOOD COUNT 12.4 10^3/uL (4.0-10.0)
[2020-04-21] MEDS: MIRALAX *UNIT DOSE* 17GM PACKET PO SCH (10:18)
[2020-04-21] MEDS: DICLOFENAC EPOLAMINE 1.3 % PATCH TOP SCH ×2 (10:19→20:26)
[2020-04-21] MEDS: SENOKOT S TAB PO SCH ×2 (10:19→20:23)
[2020-04-21] MEDS: ASCORBIC ACID 500 MG TAB PO SCH (10:19)
[2020-04-21] MEDS: CLOPIDOGREL 75 MG TAB PO SCH (10:20)
[2020-04-21] MEDS: allopurinoL 300 MG TAB PO SCH (10:20)
[2020-04-21] MEDS: CALCITRIOL 0.25 MCG CAP (S0169) PO SCH (10:20)
[2020-04-21] MEDS: FUROSEMIDE 20 MG TAB PO SCH (10:21)
[2020-04-21] MEDS: BRINZOLAMIDE 1 % OPHTH SUSP (AZOPT) 10ML OU SCH ×2 (10:21→19:54)
[2020-04-21 10:58] LABS: CALCIUM LEVEL 9.1 MG/DL (8.8-10.2); CREATININE FOR GFR 1.79 MG/DL (0.70-1.30); GLOMERULAR FILTRATION RATE 39.1 (>35); POTASSIUM SERUM 4.2 MEQ/L (3.5-5.1)
--- NOTE | 2020-04-21 12:05 | IPNPDOC ---
Text Note Date of Service The patient was seen on 04/21/20. NOTE Subjective: Patient was seen and examined this morning at bedside. Tells me overall his abdominal pain is a little better but he continues to have what feels like spasms when he goes to urinate which are very painful. He continues to have hematuria was some clots but it has improved from before. Nurse tells me there was no overnight events. He has been using his [employer] and it's been helping and has not needed to use the oral Dilaudid for breakthrough pain. Objective: Constitutional: Awake and alert, in no apparent distress ENT: Sclera are clear. Mucosa is moist. Respiratory: Lungs CTA bilaterally. No respiratory distress. No use of accessory muscles. Cardiovascular: RRR S1 and S2 are normal Gastrointestinal: Abdomen is soft, non distended, non tender globally but deep palpation of the LLQ is uncomfortable. BS present. Musculoskeletal: No LE edema. No joint deformities. RUE 5/5, LUE 5/5, BLE 5/5 Neurologic: No focal neurological deficit. : Urine bloody with some clots. 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 # Acute on chronic LLQ abdominal pain: per Dr Romero urology, likely 2/2 ureter spasms from the ureteral stents. IVFs and Pain control. [employer] PRN for pain 5-10 and PO dilaudid for breakthrough pain. Continue dicyclomine and tramadol at night. Added oxybutynin. # Possible left ureter partial obstruction from blood clots. Discussed with Dr Romero, ok to keep stents in for now; encouraged more PO hydration. Fu with Dr Sands. 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 IVFs. Stop lasix today. Discussed with Dr Dent, will obtain nuclear kidney scan. # Hypertensive Urgency: Now improved. could be 2/2 to the acute abdominal pain he had night prior to admission. hx of labile blood pressures with episodes of accelerated Hypertension and orthostatic hypotension. The work up for secondary causes of HTN was negative and they have been working on titrating his meds with his Military Technician and a HTN specialist in [place] for several years . Fu w PCP, Military Technician and HTN specialist as scheduled # Hematuria: Trend Hgb. Continue Plavix. Spoke with his cardiology Dr Galvez and we will hold his xarelto for now, currently EKG shows he's in NSR. Urology Dr Romero consulted who beleives the hematuria is from the stents but they should stay in for longer if his hgb doesn't drop much further. Recommends pain control, hydration, and to follow up with Dr Sands in clinic at scheduled appointment next week. Fu on Path results from urine cytology at appointment next week. # Macrocytic anemia. Likely multifactorial . Had adenomatous polyp in 2015. trend Hg. Fu PCP to discuss GI referal # UTI: UA + RBC, WBC, Leuk Est. b/c of instrumentation 3 days ago will treat with Levofloxacin. Fu UCx. # Elevated CPK: Cause TBD. He has had episodes of elevated CK occasionally as far back as 2012. Per 's notes had c/o myalgias related to atorvastatin in the past. IVF. Trend CK improved. # Mild Transaminitis: Hep C neg 2018. f/u with PCP to discuss Liver US # Constipation: Miralax, Senaokt S scheduled, Biascodyl PRN. # Possible pulmonary nodules: scheduled for out pt CT of the chest Tuesday # CAD: Most recent BALJINDER were placed in June 2019. Clopidogrel, xarelto, metoprolol, rosuvastatin # Atrial fibrillation: hold xarelto given hematuria for now. Discussed this with Dr Galvez his creative writing teacher. Currently NSR. # Dyslipidemia: rosuvastatin # Gout: allopurinol # Chronic right-sided renal cyst 3 cm # FLIP: CPAP 13 cm water # Sleep disorder: Rozerem # Chronic Back pain: Flector patches A Youse[facility] Hospitalist VS,Kim, I+O VS, Fishbone, I+O Laboratory Tests 04/20/20 21:09 04/21/20 09:06 Vital Signs Date Time Temp Pulse Resp B/P (MAP) Pulse Ox O2 Delivery O2 Flow Rate FiO2 04/21/20 07:59 96.9 60 18 148/88 (108) 95 Room Air I&O- Last 24 Hours up to 6 AM 04/21/20 06:00 Intake Total 2580 ml Output Total 2555 ml Balance 25 ml NAY GAONA MD Apr 21, 2020 12:05
[2020-04-21] MEDS: NS 1,000 ML IV SCH ×2 (12:29→23:09)
[2020-04-21] MEDS: oxyBUTYnin *DITROPAN XL* 5 MG TABCR PO SCH (12:37)
--- NOTE | 2020-04-21 15:45 | REP ---
INDICATION: ARF. COMPARISON: CT abdomen and pelvis 04/19/2020. TECHNIQUE/RADIOTRACER AND DOSE: Following the intravenous administration of 8.8 mCi technetium 99 M Mag 3, immediate flow images are obtained of the kidneys posteriorly. Delayed images are obtained in the posterior projection for 30 minutes. FINDINGS: There is a greater degree of perfusion of the right kidney compared to the left. Left kidney demonstrates adequate cortical uptake but a delayed nephrogram. There is negligible excretion of radiotracer into the left renal collecting system or ureter. The right kidney demonstrates diffuse cortical uptake with adequate excretion and no evidence of hydroureteronephrosis. Split function is 37.2% on the left and 62.8% on the right. Renal function curve of the left kidney demonstrates continuous upward slope. This is consistent with delayed nephrogram. Right renal function curve appears relatively normal with a time to peak of 0.6 minutes and a T1/2 normal at 7.7 minutes. Urinary bladder is moderately distended. There is mild postvoid residual after voiding. IMPRESSION: Relatively normal function of right kidney. Left kidney demonstrates relatively diminished perfusion and function, with delayed nephrogram and negligible excretion of radiotracer. Differential diagnosis would include obstructive uropathy or renal artery stenosis. <Electronically signed by Andreas Rodriguez > 04/21/20 [id number]
[2020-04-21] MEDS: ANEXSIA, NORCO 7.5MG/325MG TABLET(HYDROCODONE/APAP) PO PRN ×2 (17:15→23:05)
[2020-04-21] MEDS: LevoFLOXacin 250 MG TABLET PO SCH (18:08)
[2020-04-21] MEDS ORDERED: ONDANSETRON 4MG/2ML VIAL IV ONE (19:15)
[2020-04-21] MEDS: ROSUVASTATIN 10 MG TAB (CRESTOR) PO SCH (20:22)
[2020-04-21] MEDS: RAMELTEON 8 MG TAB (ROZEREM) PO SCH (20:23)
[2020-04-21] MEDS: METOPROLOL SUCC *XL* 25MG TAB (TopROL *XL*) PO SCH (20:23)
[2020-04-22] VITALS: BP 152/88
[2020-04-22 04:00] VITALS: BP 170/90
[2020-04-22] MEDS ORDERED: GLYCERIN ADULT SUPP PR ONE (04:00)
[2020-04-22] MEDS: ANEXSIA, NORCO 7.5MG/325MG TABLET(HYDROCODONE/APAP) PO PRN (05:06)
[2020-04-22 05:31] LABS: HEMATOCRIT 33.3 % (42.0-52.0); HEMOGLOBIN 11.1 g/dl (13.5-17.5); MEAN CORPUSCULAR HEMOGLOBIN 32.6 pg (27.0-33.0); MEAN CORPUSCULAR HGB CONC 33.3 g/dl (32.0-36.5); MEAN CORPUSCULAR VOLUME 97.9 fl (80.0-96.0); PLATELET COUNT, AUTOMATED 179 10^3/uL (150-450); WHITE BLOOD COUNT 10.5 10^3/uL (4.0-10.0)
[2020-04-22 06:21] LABS: CALCIUM LEVEL 8.7 MG/DL (8.8-10.2); CREATININE FOR GFR 1.65 MG/DL (0.70-1.30); GLOMERULAR FILTRATION RATE 42.9 (>35); POTASSIUM SERUM 3.7 MEQ/L (3.5-5.1)
--- NOTE | 2020-04-22 07:16 | IPNPDOC ---
Subjective Review oF Systems Chief Complaint The patient is a 80-year-old male admitted with a reason for visit of Abdominal Pain, Hypertensive Urgency. Events since Last Encounter His discharge was held yesterday due to rising creatinine. This has improved a little today to 1.6. His renal scan revealed delayed excretion from the left but his pain has generally improved since admission. Objective Physical Examination ABDOMEN EXAM: Normal bowel sounds, Other (unchanged) Vital Signs/I&O Vital Signs Date Time Temp Pulse Resp B/P (MAP) Pulse Ox O2 Delivery O2 Flow Rate FiO2 04/22/20 05:36 12 04/22/20 04:00 97.3 63 170/90 (116) 94 Room Air I&O- Last 24 Hours up to 6 AM 04/22/20 06:00 Intake Total 2910 ml Output Total 3700 ml Balance -790 ml Laboratory Data Labs 24H Laboratory Tests 2 04/21/20 09:06: Nucleated Red Blood Cells % (auto) 0.0, Anion Gap 5L, Glomerular Filtration Rate 39.1, Calcium Level 9.1 04/22/20 04:58: Nucleated Red Blood Cells % (auto) 0.0, Anion Gap 7L, Glomerular Filtration Rate 42.9, Calcium Level 8.7L, Total Creatine Kinase 184 CBC/BMP Laboratory Tests 04/21/20 09:06 04/22/20 04:58 Microbiology Microbiology 04/19/20 Urine Culture - Final, Complete Assessment/Plan Date Seen The patient was seen on 04/22/20. Plan/VTE VTE Prophylaxis Ordered?: No Plan I would continue to leave stents in place until upcoming appointment with Dr. Sands. I am in favor of discharge home when pain management is optimized. NEGRITA MORA MD Apr 22, 2020 07:16
[2020-04-22 08:00] VITALS: BP 198/98
[2020-04-22] MEDS: MIRALAX *UNIT DOSE* 17GM PACKET PO SCH (08:24)
[2020-04-22] MEDS: BRINZOLAMIDE 1 % OPHTH SUSP (AZOPT) 10ML OU SCH (08:24)
[2020-04-22] MEDS: oxyBUTYnin *DITROPAN XL* 5 MG TABCR PO SCH (08:25)
[2020-04-22] MEDS: CLOPIDOGREL 75 MG TAB PO SCH (08:25)
[2020-04-22] MEDS: CALCITRIOL 0.25 MCG CAP (S0169) PO SCH (08:25)
[2020-04-22] MEDS: SENOKOT S TAB PO SCH (08:25)
[2020-04-22] MEDS: ASCORBIC ACID 500 MG TAB PO SCH (08:26)
[2020-04-22] MEDS: allopurinoL 300 MG TAB PO SCH (08:26)
[2020-04-22] MEDS: DICLOFENAC EPOLAMINE 1.3 % PATCH TOP SCH (08:26)
--- NOTE | 2020-04-22 08:49 | CR ---
NEPHROLOGY CONSULTATION DATE OF CONSULTATION: 04/21/2020 DICTATED FOR: Torito Olivera M.D. 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 He has a known history of coronary artery disease, with five stents placed in June 2019, history of atrial fibrillation, on chronic anticoagulation, along with Plavix and status post ablation and DC cardioversion. He has also baseline CKD-3 and secondary hyperparathyroidism and is followed by his primary physician. He was admitted to [facility] with abdominal pain and gross hematuria. He had bilateral ureteral stents placed by Urology recently. The patient developed worsening kidney function and creatinine is up to 1.7 today due to which a nephrology consultation was requested and the patient is seen at his bedside. PAST MEDICAL HISTORY: The patient's past medical history is significant for multiple chronic medical problems includin. History of dyslipidemia. 2. Hypertension. 3. History of coronary artery disease with prior angioplasty and five stents. 4. History of atrial fibrillation - status post ablation and cardioversion, on chronic anticoagulation. 5. Gout. 6. History of diverticulosis. 7. History of CKD-3. 8. Secondary of hyperparathyroidism. 9. History of obstructive sleep apnea. 10. History of spinal stenosis and chronic back pain. 11. History of hiatal hernia. 12. History of gross hematuria, status post bilateral ureteral stents. PAST SURGICAL HISTORY: The patient's past surgical history is significant for multiple surgical procedures done includin. Vitrectomy. 2. Buccal procedure. 3. Pneumatic retinopexy for left eye detachment. 4. Resection of adenomatous colon polyp. 5. Bilateral cataract surgery. 6. Cystoscopy. 7. Bilateral ureteral stents just this month. 8. History of left atrial thrombus in 2017. 9. History of appendectomy. 10. Tonsillectomy. 11. Right inguinal hernia repair. 12. Implantation of a loop recorder. PERSONAL AND SOCIAL HISTORY: The patient lives with his and denies any tobacco or drug use. He quit smoking at 21 years of age. FAMILY HISTORY: Father with MVA at age 30. Mother had hypertension. One sister has history of perianeurysms. Another sister has diabetes and hypertension and a brother has hypertension. MEDICATIONS: His home medications include: * Allopurinol 300 mg daily. * Vitamin C 500 mg daily. * Azopt eye drops both eyes twice daily. * Calcitriol 0.5 mcg daily. * Plavix 75 mg daily. * Furosemide 20 mg daily. * Metoprolol 25 mg at bedtime. * Xarelto 20 mg daily. * Crestor 20 mg at bedtime. * Senokot-S one tablet every 12 hours. * Albuterol inhaler as needed for dyspnea. * Codeine 30 mg p.r.n. for pain. * Loratadine 10 mg daily. * Furosemide as needed 20-40 mg daily. * Pantoprazole 40 mg daily. * Miralax 17 grams daily. * Tramadol 50 mg p.r.n. for pain. * Diclofenac Gel as needed for arthritis. ALLERGIES: There are multiple allergies including: * Apixaban. * Bisoprolol. * Amlodipine. * Atorvastatin. * Dofetilide. REVIEW OF SYSTEMS: The patient denied any fever or chills. Ears, nose and throat are unremarkable other than need for a hearing aid. He denies any nose or sinus problems at present. Cardiovascular system is significant for atrial fibrillation and occasional leg edema. He had ablation done for his atrial fibrillation. He also has history of multiple stents and has been on Plavix. Respiratory system is negative for cough or hemoptysis. He has obstructive sleep apnea. GI system is negative for nausea, vomiting, or diarrhea. Genitourinary systems is significant for gross hematuria. He has bilateral ureteral stents recently placed. Endocrine system is significant for secondary hyperparathyroidism and no history of diabetes. Hematological system is significant for fdc anticoagulation with Xarelto. Neurological system is negative for seizures or stroke. Hematological system is significant for gross hematuria and anticoagulation. Skin is negative for rash or ulcers. Musculoskeletal system is significant for occasional leg edema and chronic degenerative arthritis. PHYSICAL EXAMINATION: GENERAL APPEARANCE: The patient is without any acute distress, sitting on the edge of the bed at the time of my visit. VITAL SIGNS: Temperature is 97.9 degrees Fahrenheit, heart is 78 per minute, respiratory rate 18 per minute, blood pressure 137/88 mm of mercury and oxygen saturation is 97% on room air. HEENT: Head is atraumatic. NECK: Supple and without JVD or thyroid enlargement. HEART: Irregular in rhythm and without a pericardial friction rub. LUNGS: Clear to auscultation bilaterally. ABDOMEN: Soft and nontender and bowel sounds are normal. There is palpable organomegaly. EXTREMITIES: Without any cyanosis or clubbing. There is no lower extremity edema. NEUROLOGICALLY: He is aware, alert, and oriented x3. LABORATORY DATA: On admission hemoglobin was 13.2, and hematocrit 41.5. Today hemoglobin is 11.4 and hematocrit 34.7. BUN was 26 and creatinine 1.31 on admission while today BUN is 22 and creatinine 1.79. Sodium 136 and potassium 4.2. Glucose 91 and calcium 9.1. Urinalysis showed gross hematuria and too numerous to count RBCs. PROBLEMS: 1. Acute kidney injury superimposed on chronic kidney disease - The patient had a CAT scan of abdomen and pelvis done on April 19 which did show bilateral ureteral stents with possible tissue or blood clot in the pelvis and moderate hydronephrosis on the left side. There is also a renal cyst in the right kidney. Moderate degenerative vertebral changes were noticed with arthritis. We did a stat nuclear renal scan which did show poor function of the left kidney and no excretion of dye on the left side while right kidney was functioning normally. Most likely the left ureteral stent is blocked and the patient has hydronephrosis and non functioning kidney as a result. I would strongly recommend urology intervention for replacement of the left ureteral stent. Otherwise he will need a nephrostomy. At this point his electrolytes are stable and he does not have any metabolic acidosis. I would suggest to continue with gentle IV hydration and hold off on diuretics for now. 2. Gross hematuria - The patient did have gross hematuria though he has been on chronic anticoagulation but there is no other obvious reason. Now he has ureteral stents which could also cause hematuria while the patient is on anticoagulation. We will need to watch closely. 3. Left sided hydronephrosis, most likely related to blocked ureteral stent I would suggest antibiotic coverage while the patient is having interventions and continue with the IV hydration. Thank you for involving me in the care of this very pleasant gentleman. I will follow him along with you. BERT
[2020-04-22] MEDS ORDERED: MAGNESIUM CITRATE 300 ML BTL PO ONE (09:45)
[2020-04-22 12:00] VITALS: BP 190/108
[2020-04-22] MEDS ORDERED: **hydrALAZINE HCL** 25 MG TAB PO ONE (13:15)
[2020-04-22] MEDS ORDERED: LACTULOSE 20 GM/30 ML SYRUP UD PO ONE (13:30)
[2020-04-22 13:38] VITALS: BP 190/108
[2020-04-22] MEDS ORDERED: HYDR-4514 PO (16:39)
[2020-04-22] MEDS ORDERED: SENN-52 PO (16:39)
[2020-04-22] MEDS ORDERED: LEVO250T12 PO (16:39)
[2020-04-22] MEDS ORDERED: DITR5TAB PO (16:39)
--- NOTE | 2020-04-22 16:55 | DS.PDOC ---
Discharge Summary General Date of Admission Apr 19, 2020 at 20:04 Date of Discharge 04/22/20 Discharge Summary PROCEDURES PERFORMED DURING STAY: None ADMITTING DIAGNOSES: 1. Hypertensive urgency 2. Acute on chronic LLQ abdominal pain 3. L ureteral partial obstruction 4. Hematuria 5. Macrocytic anemia 6. UTI 7. Elevated CPK 8. Transaminitis 9. Constipation 10. Possibly pulmonary nodules 11. CAD 12. Atrial fibrillation 13. Dyslipidmia 14. Gout 15. CKD III 16. Secondary hyperparathyroidism 17. Chronic R renal cyst 18. FLIP 19. Sleep disorder DISCHARGE DIAGNOSES: 2. Acute on chronic LLQ abdominal pain 3. L ureteral partial obstruction 4. Hematuria 5. Macrocytic anemia 6. UTI 7. Elevated CPK 8. Transaminitis 9. Constipation 10. Possibly pulmonary nodules 11. CAD 12. Atrial fibrillation 13. Dyslipidmia 14. Gout 15. CKD III 16. Secondary hyperparathyroidism 17. Chronic R renal cyst 18. FLIP 19. Sleep disorder COMPLICATIONS/CHIEF COMPLAINT: Abdominal Pain, Hypertensive Urgency. HISTORY OF PRESENT ILLNESS: This 80-year-old gentleman presented with complaints of acute worsening of his chronic left lower quadrant abdominal pain last night. The pain tends to get worse when he lies on his left side, is so severe that it wakes him up from sleeping and has persisted despite taking tramadol. His last BM was 2 days ago; he takes Miralax daily. He has been having recurrent gross hematuria for several months; on Apr 16 he had cystoscopy and bilateral ureteral stents placed. After the procedure has continued to have a bit of blood in the urine. Initially he received morphine which didn't alleviate the abdominal pain and was subsequently give Dilaudid which seemed to help. Because of the CT scan findings of left ureteral obstruction called who was of the opinion that the abdominal pain was not likely related to these findings. REVIEW OF SYSTEMS: 12 point review of systems negative except as listed in HPI HOSPITAL COURSE: Patient was admitted for management of hypertensive urgency as well as hematuria given recent bilateral ureteral stent placement and workup to rule out renal tumor, in addition to severe acute on chronic L flank/LLQ pain. Blood pressure elevation was likely related to severe pain, and improved with IV pain control and use of labetalol and furosemide. CT scan of abdo pelvis showed likely hydronephrosis of the L kidney, in concert with creatinine elevation, nephrology was consulted. Nuclear renal scan showed reduced perfusion of L kidney. Concern for blockage of the L ureteral stent. Levaquin was given as patient had recent surgical intervention. Urology was consulted for assistance with management of LLQ/L flank pain and suspected hydronephrosis. Pain was though to be likely related to ureteral spasms 2/2 stent placement. Patient's pain was adequately controlled with IV medication for breakthrough followed by a PO regimen. Per urology, it was recommended to leave stents untouched, and to follow up with patient's primary urologist Dr. Sands on 04/28 for stent removal since, Dr. Sands informed patient of negative cytology results. On day of discharge patient's flank and abdominal pain had improved. His hematuria had improved although not completely resolved. Creatine was elevated from baseline (1.69, compared to 1.3 respectively), but on a downward trend. Patient was advised to repeat imaging and lab work to assess his renal function in a few days after stent removal. Of note, xarelto was held for 1 week, which was discussed with Dr. Galvez (primary business systems manager) given ongoing hematuria, which can be resumed after stent removal assuming stable hemoglobin levels. Additional problems were addressed as follows: # Acute on chronic LLQ abdominal pain: per Dr Romero urology, likely 2/2 ureter spasms from the ureteral stents. IVFs and Pain control. [place] PRN for pain 5-10 and PO dilaudid for breakthrough pain. Continue dicyclomine and tramadol at night. Added oxybutynin. # Possible left ureter partial obstruction from blood clots. Discussed with Dr Romero, ok to keep stents in for now; encouraged more PO hydration. Fu with Dr Sands for stent removal on 04/29. 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 IVFs. Stop lasix today. Discussed with Dr Dent, will obtain nuclear kidney scan. # Hypertensive Urgency: Now improved. could be 2/2 to the acute abdominal pain he had night prior to admission. hx of labile blood pressures with episodes of accelerated Hypertension and orthostatic hypotension. The work up for secondary causes of HTN was negative and they have been working on titrating his meds with his Reference Test Clerk and a HTN specialist in [place] for several years . Fu w PCP, Reference Test Clerk and HTN specialist as scheduled # Hematuria: Trend Hgb, stable at 11.1. Continue Plavix. Spoke with his cardiology Dr Galvez and we will hold his xarelto for approx 1 week, currently EKG shows he's in NSR. Urology Dr Romero consulted who believes the hematuria is from the stents but they should stay in for longer if his hgb doesn't drop much further. Recommends pain control, hydration, and to follow up with Dr Sands in clinic at scheduled appointment next week. # Macrocytic anemia. Likely multifactorial . Had adenomatous polyp in 2016. trend Hg. Fu PCP to discuss GI referal # UTI: UA + RBC, WBC, Leuk Est. b/c of instrumentation 3 days ago will treat with Levofloxacin. Fu UCx. # Elevated CPK: Cause TBD. He has had episodes of elevated CK occasionally as far back as 2012. Per 's notes had c/o myalgias related to atorvastatin in the past. IVF. Trend CK improved. # Mild Transaminitis: Hep C neg 2018. f/u with PCP to discuss Liver US # Constipation: Miralax, Senaokt S scheduled, Biascodyl PRN. # Possible pulmonary nodules: scheduled for out pt CT of the chest Tuesday # CAD: Most recent BALJINDER were placed in June 2019. Clopidogrel, xarelto, metoprolol, rosuvastatin # Atrial fibrillation: hold xarelto given hematuria for now. Discussed this with Dr Galvez his business systems manager. Currently NSR. # Dyslipidemia: rosuvastatin # Gout: allopurinol # Chronic right-sided renal cyst 3 cm # FLIP: CPAP 13 cm water # Sleep disorder: Rozerem # Chronic Back pain: Flector patches DISCHARGE MEDICATIONS: Please see below. ALLERGIES: Please see below. PHYSICAL EXAMINATION ON DISCHARGE: VITAL SIGNS: please see below General: NAD, comfortable HEENT: PERRLA, EOMI, sclerae clear Neck: supple, normal ROM, no JVD Respiratory: lungs CTAB, no wheeze, no rales, no crackles CVS: RRR, normal S1, S2, no murmurs Abdo: soft, no masses, no hepatosplenomegaly, BS+, no rebound tenderness. Left lower flank pain Extremities: no edema, pulses 2+ MSK: no joint deformities, normal ROM Neuro: no focal neuro deficits, moving all 4 extremities, CN2-12 intact. Strength 5/5 in all 4 extremities. No nystagmus. Psych: calm, cooperative, AAO x 3 LABORATORY DATA: Please see below. IMAGING: CT abdo pelvis (04/19/20): 1. Comparison to the previous CT abdomen pelvis study from 08/13/2019 shows interval placement of bilateral ureteral stents, with the stents in satisfactory position. High density material is seen adjacent to the distal pigtail of the left ureteral stent in the urinary bladder likely representing intravesical blood clot or infectious debris. The left renal pelvis is moderately dilated which could be indicative of an at least partial obstruction of the left ureter. 2. There is a 3.0 x 2.6 cm hypodense mass in the medial cortex of the upper pole right kidney on image 35 of series 201 and image 67 of series 202. The mass shows some smooth slightly lobulated thickening of the medial wall of the lesion and could represent a Bosniak type IIF cyst. Recommend CT without and with contrast or MR without and with contrast at 6 months and 12 months, then yearly for 5 years. Reference: Theresa MAJOR, Management of the Incidental Renal Mass on CT: A White Paper of the ACR Incidental Findings Committee, J Am Ariana Radiol 2018. 3. A moderately large sliding-type gastric hiatal hernia is present posterior to the heart. 4. Moderate chronic degenerative vertebral body endplate osteophytic disease is seen in the mid to lower thoracic spine. Mild dextroscoliosis of the thoracolumbar spine, apex at T12/L1. Chronic degenerative discovertebral disease with vacuum disc phenomenon is seen at L2/L3 and at L4/L5. NM Kidney Scan with flow/function (04/21/20): FINDINGS: There is a greater degree of perfusion of the right kidney compared to the left. Left kidney demonstrates adequate cortical uptake but a delayed nephrogram. There is negligible excretion of radiotracer into the left renal collecting system or ureter. The right kidney demonstrates diffuse cortical uptake with adequate excretion and no evidence of hydroureteronephrosis. Split function is 37.2% on the left and 62.8% on the right. Renal function curve of the left kidney demonstrates continuous upward slope. This is consistent with delayed nephrogram. Right renal function curve appears relatively normal with a time to peak of 0.6 minutes and a T1/2 normal at 7.7 minutes. Urinary bladder is moderately distended. There is mild postvoid residual after voiding. IMPRESSION: Relatively normal function of right kidney. Left kidney demonstrates relatively diminished perfusion and function, with delayed nephrogram and negligible excretion of radiotracer. Differential diagnosis would include obstructive uropathy or renal artery stenosis. PROGNOSIS: good ACTIVITY: [As tolerated]. DIET: 2g Na. DISCHARGE PLAN: - DC home with close PCP and specialist follow up. - pain control with norco - Hold xarelto until 04/27 at which time can be resumed (was held due to hematuria post-stent placement), assuming stable hemoglobin. - follow up with Dr. Sands on 04/28/20 for stent removal - follow up with Dr. Galvez within 1 week - continue to take levaquin 250 mg daily for 4 more days (EOT 04/26/20) DISCHARGE INSTRUCTIONS: Please follow up with your PCP Dr. Gagnon in 3-5 days, as well as Dr. Sands on 04/[address] Galvez in 1 week. Resume xarelto in 1 week if hemoglobin stable. Please return to emergency room if worsening bleeding, pain, fevers or otherwise worsening of your symptoms. ITEMS TO FOLLOWUP ON ON OUTPATIENT: 1. Surveillance CT chest (was delayed due to CRISTIAN). 2. Possible GI referral for adenomatous polyp in 2016 multifactorial anemia DISCHARGE CONDITION: [Stable]. TIME SPENT ON DISCHARGE: 35 minutes Vital Signs/I&Os Vital Signs Date Time Temp Pulse Resp B/P (MAP) Pulse Ox O2 Delivery O2 Flow Rate FiO2 04/22/20 13:38 190/108 04/22/20 12:00 98.7 57 16 99 Room Air I&O- Last 24 Hours up to 6 AM 04/22/20 06:00 Intake Total 2910 ml Output Total 3700 ml Balance -790 ml Laboratory Data Labs 24H Laboratory Tests 2 04/22/20 04:58: Nucleated Red Blood Cells % (auto) 0.0, Anion Gap 7L, Glomerular Filtration Rate 42.9, Calcium Level 8.7L, Total Creatine Kinase 184 CBC/BMP Laboratory Tests 04/22/20 04:58 Microbiology Microbiology 04/19/20 Urine Culture - Final, Complete Discharge Medications Scheduled Allopurinol (Zyloprim) 300 Mg Tab, 300 MG PO DAILY, (Reported) Ascorbic Acid (Ascorbic Acid) 500 Mg Tablet, 1,000 MG PO DAILY, (Reported) Brinzolamide (Azopt) 1 % Nina, 1 DROP OU BID, (Reported) Calcitriol (Rocaltrol) 0.5 Mcg Capsule, 0.5 MCG PO DAILY, (Reported) Carboxymethyl/Glycerin/Poly80 (Refresh Optive Advanced Drops) 10 Ml Drops, 1 DROP OU QID, (Reported) Clopidogrel Bisulfate (Plavix) 75 Mg Tablet, 75 MG PO DAILY, (Reported) Levofloxacin (Levofloxacin) 250 Mg Tablet, 250 MG PO DAILY@1800 Metoprolol Succinate (Metoprolol Succinate) 25 Mg Tab, 25 MG PO QHS, (Reported) Oxybutynin Chloride (Ditropan Xl) 5 Mg Tab.er.24, 10 MG PO DAILY Rosuvastatin Calcium (Rosuvastatin Calcium) 10 Mg Tablet, 20 MG PO QHS, (Reported) Sennosides/Docusate Sodium (Senokot-S Tablet) 1 Each Tablet, 1 TAB PO Q12H Scheduled PRN Albuterol Sulfate (Ventolin Hfa) 18 Gm Hfa.aer.ad, 2 PUFF INH TID PRN for wheezing, (Reported) Bisacodyl (Dulcolax) 5 Mg Tablet.dr, 5 MG PO DAILY PRN for BOWEL CARE/CONSTIPATION Codeine Sulfate (Codeine Sulfate) 30 Mg Tablet, 30 MG PO QID PRN for pain, (Reported) Diclofenac Sodium (Voltaren) 100 Gm Gel..gram., 2 GM TOP BID PRN for PAIN, (Reported) APPLY TO JOINTS AND LOWER BACK Dicyclomine HCl (Dicyclomine HCl) 20 Mg Tablet, 20 MG PO QHS PRN for IRRITABLE BOWEL, (Reported) Fluticasone Propionate (Flonase Allergy Relief) 50 Mcg/Act Spr, 2 SPRAYS NARES DAILY PRN for CONGESTION, (Reported) Furosemide (Furosemide) 40 Mg Tablet, 20 MG PO DAILY PRN for WATER RETENTION/ EDEMA, (Reported) Hydrocodone/Acetaminophen (Hydrocodone-Acetamin 7.5-325) 1 Each Tablet, 1 TAB PO Q6HP PRN for MODERATE/SEVERE PAIN (PS 5-10) Loratadine (Loratadine) 10 Mg Tab.rapdis, 10 MG PO DAILY PRN for ALLERGY SYMPTOMS, (Reported) Pantoprazole Sodium (Pantoprazole Sodium) 40 Mg Tab, 40 MG PO DAILY PRN for HEARTBURN, (Reported) Polyethylene Glycol 3350 (Miralax) 119 Gm Powder, 17 GRAM PO DAILY PRN for CONSTIPATION, (Reported) MIX IN 8 OUNCES OF WATER OR JUICE Ramelteon (Rozerem) 8 Mg Tablet, 8 MG PO QPM PRN for insomnia Sennosides/Docusate Sodium (Senna Plus Tablet) 1 Each Tablet, 2 TAB PO BID PRN for CONSTIPATION Allergies Coded Allergies: apixaban (Verified Adverse Reaction, Intermediate, ATAXIA, 04/04/20) bisoprolol (Verified Adverse Reaction, Intermediate, BRADYCARDIA, 04/04/20) dofetilide (Verified Adverse Reaction, Intermediate, V TACH, 04/04/20) amlodipine (Verified Adverse Reaction, Mild, EDEMA, 04/04/20) atorvastatin (Verified Adverse Reaction, Mild, MUSCLE WEAKNESS, 04/04/20) ANABELL DUEÑAS MD Apr 22, 2020 16:55
[2020-04-22 17:06] VITALS: BP 156/82
--- NOTE | 2020-04-23 07:48 | IPN ---
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 He is feeling better and reports that his abdominal and flank pain have improved. His hematuria has improved though not completely resolved. IV fluids have been stopped now. He has been eating well and denies any nausea or vomiting. He has bilateral ureteral stents and nuclear renal scan showed poor function from the left kidney. Urology feels that the patient can be discharged to home as he is already scheduled for removal of stents on Tuesday. The patient tells me that he has been called by his urologist and reported that his urine cytology came back negative for malignancy. His baseline serum creatinine is about 1.3 mg per deciliter and todays creatinine is 1.69. Yesterday his creatinine was 1.79. PHYSICAL EXAMINATION: VITAL SIGNS: Temperature 97.3 degrees Fahrenheit, heart is 60 per minute and respiratory rate is 16 per minute, blood pressure 190/98 mm of mercury and oxygen saturation is 96% on room air. HEENT: His head is atraumatic. NECK: Supple and without JVD or thyroid enlargement. HEART: Regular. LUNGS: Clear to auscultation. ABDOMEN: Soft and nontender and bowel sounds are normal. EXTREMITIES: Without any cyanosis or clubbing. LABORATORY STUDIES: Todays labs show sodium of 141, potassium 3.7, CO2 24, BUN 21 and creatinine 1.65. CPK is 184. WBC count 10.5, hemoglobin 11.1, and hematocrit 33.3. PROBLEMS: 1. Acute kidney injury superimposed on chronic kidney disease this is related to poor function from his last kidney. Most likely his ureteral stent is blocked and he has no drainage from that kidney. The patient understands his situation very well and I discussed with him and explained. He is scheduled for removal of ureteral stents on Tuesday by Urology and I have advised to repeat imaging and lab work at least a couple of days after the removal of stents. We would anticipate his kidney function to improve back to about baseline with a serum creatinine of about 1.3 mg per deciliter. 2. Gross hematuria, most likely related to anticoagulation and now with ureteral stents - Hematuria is likely to resolve after removal of stents. 3. Hypertension - The patient is known to have labile hypertension and blood pressure is high this morning. His IV fluids have been stopped. He has been given the morning dose of medications. He can probably use Hydralazine in low dose as needed in addition to his chronic antihypertensives. I would suggest to avoid carlos inhibitor or angiotensin receptor blockers at this point. 4. Disposition - The patient is going to be discharged to home, and he will follow up with his primary physician. I would be placed to see him and follow up if needed, in the office. BERT
== END 2020-04-22 17:47 | disposition home or self-care (01) | DRG 699 ==
LOC: M ED 14:28 → M ED INP 20:04 → ENRESERV 21:03 → M PCU 22:21
PROVIDERS: ADMIT Internal Medicine; ATTEND Family Medicine
DX: T83.84XA Pain due to genitourinary prosthetic devices, implants and grafts, initial encounter (principal); N17.9 Acute kidney failure, unspecified; N39.0 Urinary tract infection, site not specified; N25.81 Secondary hyperparathyroidism of renal origin; T83.83XA Hemorrhage due to genitourinary prosthetic devices, implants and grafts, initial encounter; N18.30 Chronic kidney disease, stage 3 unspecified; I16.0 Hypertensive urgency; N13.5 Crossing vessel and stricture of ureter without hydronephrosis; M10.9 Gout, unspecified; E78.5 Hyperlipidemia, unspecified; G47.33 Obstructive sleep apnea (adult) (pediatric); K59.00 Constipation, unspecified; R91.8 Other nonspecific abnormal finding of lung field; R31.0 Gross hematuria; D53.9 Nutritional anemia, unspecified; I48.91 Unspecified atrial fibrillation; I25.10 Atherosclerotic heart disease of native coronary artery without angina pectoris; N28.1 Cyst of kidney, acquired; Z79.899 Other long term (current) drug therapy; Z88.8 Allergy status to other drugs, medicaments and biological substances; I12.9 Hypertensive chronic kidney disease with stage 1 through stage 4 chronic kidney disease, or unspecified chronic kidney disease; K57.30 Diverticulosis of large intestine without perforation or abscess without bleeding; Z95.2 Presence of prosthetic heart valve; K44.9 Diaphragmatic hernia without obstruction or gangrene; Z79.01 Long term (current) use of anticoagulants; Y84.6 Urinary catheterization as the cause of abnormal reaction of the patient, or of later complication, without mention of misadventure at the time of the procedure

== ENCOUNTER → 2020-04-28 | Outpatient (REF) | payer MEDICARE ==
[~2020-04-28] MED LIST changes: +ASCO500T PO; +DITR5TAB PO; +DULC5TAB PO; +HYDR-4514 PO; +LEVO250T12 PO; +ROZE8TAB16 PO; +SENN-52 PO; +SENO8.6T10 PO
[2020-04-28 18:48] LABS: CALCIUM LEVEL 9.2 MG/DL (8.8-10.2); CREATININE FOR GFR 1.29 MG/DL (0.70-1.30); GLOMERULAR FILTRATION RATE 57.1 (>35); POTASSIUM SERUM 3.9 MEQ/L (3.5-5.1)
== END ==
LOC: M LABSMT 14:50
PROVIDERS: ATTEND Urology
DX: N17.9 Acute kidney failure, unspecified (principal)

== ENCOUNTER → 2020-05-01 | Outpatient (CLI) | payer MEDICARE ==
--- NOTE | 2020-05-08 10:57 | REP ---
INDICATION: PULMONARY NODULE. Repeat dictation. The study was acquired on 01 May 2020 and is presented to me for repeat dictation on 08 May 2020. COMPARISON: Comparison chest x-ray April 09, 2020. This showed 2 nodular densities on the left side. No comparison chest CT study.. TECHNIQUE: Helical scanning is acquired and 3 mm axial images are generated. Coronal and sagittal MPR and coronal MIP images are generated. FINDINGS: There is no evidence of significant pulmonary nodule or mass lesion. There is tiny granulomatous calcification in the left upper lobe on page 52 of 114 in series 201 today's study. No other pulmonary nodular density is seen. There is a benign bone island in the left posterior 6th rib which is felt to explain the radiographic finding projecting in the left perihilar region. No other bone island is seen. The other nodular opacity may have been due to nipple silhouette. In any event, there is no pulmonary nodule. There is a loop recorder in the presternal soft tissues. No hilar or mediastinal mass or adenopathy is seen. There is heavy vascular calcification and/or stent material in the coronary arteries bilaterally. A moderate size hiatal hernia is seen behind the heart. There is no evidence of mass or adenopathy. Normal adrenal glands are seen. There is a 3 mm calculus in the upper pole of the left kidney and some renal artery vascular calcification is seen. Visualized upper abdominal structures are otherwise unremarkable. IMPRESSION: Coronary artery stent and vascular calcification. Moderate size hiatal hernia. Otherwise no active cardiopulmonary disease. No pulmonary nodule is seen. There is a bone island in the left posterior 6th rib which is benign. Nipple silhouette most likely explains the 2nd nodular density on recent chest x-ray. There is a loop recorder in the presternal soft tissues. <Electronically signed by Edin Cuevas > 05/08/20 [id number]
== END ==
LOC: M RAD 14:53
PROVIDERS: ATTEND Urology
DX: K44.9 Diaphragmatic hernia without obstruction or gangrene (principal); Z95.5 Presence of coronary angioplasty implant and graft

== ENCOUNTER → 2020-05-19 | Outpatient (CLI) | payer SELFPAY | LOC: M LABSMTC 13:42 | PROVIDERS: ATTEND Pediatrics | DX: Z20.828 Contact with and (suspected) exposure to other viral communicable diseases (principal) ==

== ENCOUNTER → 2020-09-12 | Outpatient (REF) | payer MEDICARE ==
[2020-09-12 10:23] LABS: BASO # 0.1 10^3/uL (0.0-0.2); BASO % 0.7 % (0.0-1.0); EOS # 0.4 10^3/uL (0.0-0.5); EOS % 4.2 % (0.0-3.0); HEMATOCRIT 43.3 % (42.0-52.0); HEMOGLOBIN 13.8 g/dl (13.5-17.5); LYMPH # 2.8 10^3/uL (1.5-5.0); LYMPH % 33.5 % (24.0-44.0); MEAN CORPUSCULAR HEMOGLOBIN 31.7 pg (27.0-33.0); MEAN CORPUSCULAR HGB CONC 31.9 g/dl (32.0-36.5); MEAN CORPUSCULAR VOLUME 99.3 fl (80.0-96.0); MONO # 0.7 10^3/uL (0.0-0.8); MONO % 8.5 % (2.0-8.0); NEUTROPHILS # 4.4 10^3/uL (1.5-8.5); NEUTROPHILS % 52.9 % (36.0-66.0); PLATELET COUNT, AUTOMATED 196 10^3/uL (150-450); RED BLOOD COUNT 4.36 10^6/uL (4.30-6.10); WHITE BLOOD COUNT 8.3 10^3/uL (4.0-10.0)
[2020-09-12 10:56] LABS: ALBUMIN 3.7 GM/DL (3.2-5.2); ALT/SGPT 39 U/L (12-78); BILIRUBIN,TOTAL 0.4 MG/DL (0.2-1.0); BLOOD UREA NITROGEN 22 MG/DL (7-18); CALCIUM LEVEL 9.8 MG/DL (8.8-10.2); CARBON DIOXIDE LEVEL 30 MEQ/L (21-32); CHLORIDE LEVEL 109 MEQ/L (98-107); CHOLESTEROL LEVEL 145 MG/DL (<200); CREATININE FOR GFR 1.09 MG/DL (0.70-1.30); GLOMERULAR FILTRATION RATE > 60.0 (>35); GLUCOSE, FASTING 87 MG/DL (70-100); HDL CHOLESTEROL 48 MG/DL (>40); LDL CHOLESTEROL 65 MG/DL (<100); MAGNESIUM LEVEL 2.6 MG/DL (1.8-2.4); NON-HDL-C 97 MG/DL; POTASSIUM SERUM 3.9 MEQ/L (3.5-5.1); SODIUM LEVEL 143 MEQ/L (136-145); TOTAL PROTEIN 7.2 GM/DL (6.4-8.2); TRIGLYCERIDES LEVEL 160 MG/DL (<150); URIC ACID 4.3 MG/DL (3.5-7.2)
== END ==
LOC: M PLALAB 09:48
PROVIDERS: ATTEND Internal Medicine
DX: I12.9 Hypertensive chronic kidney disease with stage 1 through stage 4 chronic kidney disease, or unspecified chronic kidney disease (principal); N18.30 Chronic kidney disease, stage 3 unspecified; G47.30 Sleep apnea, unspecified; M10.9 Gout, unspecified; E78.00 Pure hypercholesterolemia, unspecified

== ENCOUNTER → 2021-01-12 | Outpatient (REF) | payer MEDICARE | LOC: M SFHCPLAZ 10:19 | PROVIDERS: ATTEND Internal Medicine | DX: Z78.9 Other specified health status (principal) ==

== ENCOUNTER → 2021-03-02 | Outpatient (REF) | payer MEDICARE | LOC: M SFHCPLAZ 15:07 | PROVIDERS: ATTEND Internal Medicine | DX: Z78.9 Other specified health status (principal) ==

== ENCOUNTER → 2021-03-16 | Outpatient (CLI) | payer MEDICARE ==
[2021-03-16 16:25] LABS: BASO # 0.1 10^3/uL (0.0-0.2); BASO % 0.7 % (0.0-1.0); EOS # 0.2 10^3/uL (0.0-0.5); EOS % 2.4 % (0.0-3.0); HEMATOCRIT 47.2 % (42.0-52.0); HEMOGLOBIN 15.2 g/dl (13.5-17.5); LYMPH # 2.2 10^3/uL (1.5-5.0); MEAN CORPUSCULAR HEMOGLOBIN 32.5 pg (27.0-33.0); MEAN CORPUSCULAR HGB CONC 32.2 g/dl (32.0-36.5); MEAN CORPUSCULAR VOLUME 101.1 fl (80.0-96.0); MONO # 0.6 10^3/uL (0.0-0.8); MONO % 7.8 % (2.0-8.0); NEUTROPHILS # 4.1 10^3/uL (1.5-8.5); NEUTROPHILS % 57.7 % (36.0-66.0); PLATELET COUNT, AUTOMATED 218 10^3/uL (150-450); RED BLOOD COUNT 4.67 10^6/uL (4.30-6.10); WHITE BLOOD COUNT 7.1 10^3/uL (4.0-10.0)
[2021-03-16 17:13] LABS: BILIRUBIN,TOTAL 0.6 MG/DL (0.2-1.0); CALCIUM LEVEL 9.5 MG/DL (8.8-10.2); CREATININE FOR GFR 1.3 MG/DL (0.70-1.30); GLOMERULAR FILTRATION RATE 56.4 (>35); MAGNESIUM LEVEL 2.5 MG/DL (1.8-2.4); POTASSIUM SERUM 3.8 MEQ/L (3.5-5.1); PTH INTACT 127.5 PG/ML (18.5-88.0); TOTAL PROTEIN 7.8 GM/DL (6.4-8.2)
== END ==
LOC: M PLALAB 12:04
PROVIDERS: ATTEND Internal Medicine
DX: I12.9 Hypertensive chronic kidney disease with stage 1 through stage 4 chronic kidney disease, or unspecified chronic kidney disease (principal); N18.30 Chronic kidney disease, stage 3 unspecified; G47.30 Sleep apnea, unspecified

== ENCOUNTER → 2021-06-06 | Outpatient (CLI) | payer MEDICARE ==
[~2021-06-06] MED LIST changes: +12 H0.056; +ALLO300T2 PO; +ALRE0.5S OU; +ASPI81TA27 PO; +CODE15TA PO; +DICL20GE TP; -DICY20TA11 PO; +DICY20TA20 PO; -LEVO250T12 PO; +LEVO250T3 PO; +LORA-622 PO; +REFR0.5D8 OP; +ROPI2TAB24 PO; +TELM1TAB33 PO
== END ==
LOC: M LABSMTC 10:58
PROVIDERS: ATTEND Anesthesiology
DX: Z01.812 Encounter for preprocedural laboratory examination (principal); Z20.822 Contact with and (suspected) exposure to COVID-19

== ENCOUNTER → 2021-06-10 | Outpatient (CLI) | payer MEDICARE | LOC: M PLAIMG 13:56 | PROVIDERS: ATTEND Internal Medicine | DX: S22.41XA Multiple fractures of ribs, right side, initial encounter for closed fracture (principal); W00.0XXA Fall on same level due to ice and snow, initial encounter; Y92.9 Unspecified place or not applicable; Y99.9 Unspecified external cause status; R07.81 Pleurodynia ==

== ENCOUNTER → 2021-06-15 | Outpatient (REF) | LOC: M LABSMTC 10:05 | PROVIDERS: ATTEND Pediatrics | DX: Z20.828 Contact with and (suspected) exposure to other viral communicable diseases (principal) ==

== ENCOUNTER → 2021-07-30 | Outpatient (CLI) | payer MEDICARE | LOC: M LABSMTC 10:06 | PROVIDERS: ATTEND Anesthesiology | DX: Z11.52 Encounter for screening for COVID-19 (principal) ==

== ENCOUNTER 2021-08-04 06:39 | Day surgery (SDC) | payer MEDICARE ==
[~2021-08-04] VITALS: Ht 177.8 cm; Wt 93.9 kg
[~2021-08-04 06:39] MED LIST changes: +NS 1,000 ML IV ONE
[2021-08-04] MEDS ORDERED: LIDOCAINE 2% 100MG/5ML SDV (FOR ANES.) As Ordered ONE (07:06)
[2021-08-04] MEDS ORDERED: propofoL 200 MG/20 ML VIAL As Ordered ONE ×2 (07:06→08:14)
[2021-08-04 08:50] VITALS: BP 160/102
== END 2021-08-04 09:11 | disposition home or self-care (01) ==
LOC: M OPP 06:39
PROVIDERS: ATTEND Surgery
DX: Z12.11 Encounter for screening for malignant neoplasm of colon (principal); Z86.010 Personal history of colon polyps; K64.9 Unspecified hemorrhoids; K63.5 Polyp of colon; K21.9 Gastro-esophageal reflux disease without esophagitis; K44.9 Diaphragmatic hernia without obstruction or gangrene; K22.2 Esophageal obstruction; Z95.5 Presence of coronary angioplasty implant and graft; I48.91 Unspecified atrial fibrillation; I50.9 Heart failure, unspecified; Z79.899 Other long term (current) drug therapy

== ENCOUNTER → 2021-09-01 | Outpatient (CLI) | payer MEDICARE ==
[~2021-09-01] MED LIST changes: -NS 1,000 ML IV ONE
[2021-09-01 15:23] LABS: BASO # 0.1 10^3/uL (0.0-0.2); BASO % 0.5 % (0.0-1.0); EOS # 0.2 10^3/uL (0.0-0.5); EOS % 2.3 % (0.0-3.0); HEMATOCRIT 41.7 % (42.0-52.0); HEMOGLOBIN 13.6 g/dl (13.5-17.5); LYMPH # 1.7 10^3/uL (1.5-5.0); LYMPH % 17.4 % (24.0-44.0); MEAN CORPUSCULAR HEMOGLOBIN 31.5 pg (27.0-33.0); MEAN CORPUSCULAR HGB CONC 32.6 g/dl (32.0-36.5); MEAN CORPUSCULAR VOLUME 96.5 fl (80.0-96.0); MONO % 9.7 % (2.0-8.0); NEUTROPHILS # 6.9 10^3/uL (1.5-8.5); NEUTROPHILS % 69.6 % (36.0-66.0); PLATELET COUNT, AUTOMATED 211 10^3/uL (150-450); RED BLOOD COUNT 4.32 10^6/uL (4.30-6.10); WHITE BLOOD COUNT 9.9 10^3/uL (4.0-10.0)
[2021-09-01 15:57] LABS: CALCIUM LEVEL 9.9 MG/DL (8.8-10.2); CREATININE FOR GFR 1.29 MG/DL (0.70-1.30); GLOMERULAR FILTRATION RATE 56.9 (>35); POTASSIUM SERUM 3.9 MEQ/L (3.5-5.1)
== END ==
LOC: M PLALAB 12:40
PROVIDERS: ATTEND Internal Medicine Cardiovascular Disease
DX: I25.10 Atherosclerotic heart disease of native coronary artery without angina pectoris (principal); Z98.61 Coronary angioplasty status

== ENCOUNTER → 2021-09-10 | Outpatient (CLI) | payer MEDICARE | LOC: M LABSMTC 09:45 | PROVIDERS: ATTEND Internal Medicine Cardiovascular Disease | DX: Z01.812 Encounter for preprocedural laboratory examination (principal); Z20.822 Contact with and (suspected) exposure to COVID-19 ==

== ENCOUNTER → 2021-09-18 | Outpatient (CLI) | payer MEDICARE ==
[2021-09-18 14:32] LABS: ALBUMIN 3.7 GM/DL (3.2-5.2); BILIRUBIN,TOTAL 0.5 MG/DL (0.2-1.0); CALCIUM LEVEL 9.9 MG/DL (8.8-10.2); CHOLESTEROL RISK RATIO 2.854 (<5); CREATININE FOR GFR 1.32 MG/DL (0.70-1.30); GLOMERULAR FILTRATION RATE 55.4 (>35); MAGNESIUM LEVEL 2.5 MG/DL (1.8-2.4); POTASSIUM SERUM 3.5 MEQ/L (3.5-5.1); TOTAL PROTEIN 7.5 GM/DL (6.4-8.2)
[2021-09-18 14:35] LABS: PTH INTACT 133.2 PG/ML (18.5-88.0)
== END ==
LOC: M PLALAB 08:54
PROVIDERS: ATTEND Internal Medicine
DX: I12.9 Hypertensive chronic kidney disease with stage 1 through stage 4 chronic kidney disease, or unspecified chronic kidney disease (principal); N18.30 Chronic kidney disease, stage 3 unspecified; E78.00 Pure hypercholesterolemia, unspecified; M10.9 Gout, unspecified

== ENCOUNTER → 2021-10-19 | Outpatient (CLI) | payer MEDICARE ==
[2021-10-19 14:24] LABS: CALCIUM LEVEL 9.9 MG/DL (8.8-10.2); CREATININE FOR GFR 1.35 MG/DL (0.70-1.30); MAGNESIUM LEVEL 2.6 MG/DL (1.8-2.4); POTASSIUM SERUM 3.7 MEQ/L (3.5-5.1); PTH INTACT 77.2 PG/ML (18.5-88.0)
== END ==
LOC: M PLALAB 08:46
PROVIDERS: ATTEND Internal Medicine
DX: N18.31 Chronic kidney disease, stage 3a (principal)

== ENCOUNTER → 2021-10-31 | Outpatient (CLI) | payer MEDICARE | LOC: M SLEEP 20:00 | PROVIDERS: ATTEND Internal Medicine Pulmonary Disease | DX: G47.33 Obstructive sleep apnea (adult) (pediatric) (principal) ==

== ENCOUNTER → 2021-11-05 | Outpatient (CLI) | payer MEDICARE | LOC: M PLAIMG 08:56 | PROVIDERS: ATTEND Psychiatry & Neurology Neurology | DX: M25.511 Pain in right shoulder (principal) ==

== ENCOUNTER → 2022-02-17 | Outpatient (CLI) | payer MEDICARE ==
[~2022-02-17] MED LIST changes: +INDA1.253 PO; -INDA125TA PO; +LEVO1TAB38 PO; -LEVO250T3 PO
== END ==
LOC: M PLAIMG 15:20
PROVIDERS: ATTEND Orthopaedic Surgery
DX: R91.1 Solitary pulmonary nodule (principal); M75.121 Complete rotator cuff tear or rupture of right shoulder, not specified as traumatic; M19.011 Primary osteoarthritis, right shoulder

== ENCOUNTER → 2022-02-18 | Outpatient (CLI) | payer MEDICARE ==
[2022-02-18 11:37] LABS: APPEARANCE, URINE MANUAL CLEAR (CLEAR); BILIRUBIN, URINE MANUAL NEGATIVE (NEGATIVE); COLOR, URINE MANUAL YELLOW (YELLOW); GLUCOSE, URINE (UA) MANUAL 1+(100 MG/DL) mg/dL (NEGATIVE); KETONE, URINE MANUAL NEGATIVE (NEGATIVE); LEUKOCYTE ESTERASE, URINE MAN NEGATIVE (NEGATIVE); NITRITE, URINE MANUAL NEGATIVE (NEGATIVE); PROTEIN, URINE MANUAL NEGATIVE (NEGATIVE); SPECIFIC GRAVITY,URINE MANUAL 1.015 (1.002-1.035); UROBILINOGEN, URINE MANUAL NORMAL (NORMAL)
[2022-02-18 11:38] LABS: BLOOD URINE MANUAL NEGATIVE (NEGATIVE)
[2022-02-18 11:39] LABS: HEMATOCRIT 49.9 % (42.0-52.0); MEAN CORPUSCULAR HEMOGLOBIN 31.3 pg (27.0-33.0); MEAN CORPUSCULAR HGB CONC 32.1 g/dl (32.0-36.5); MEAN CORPUSCULAR VOLUME 97.5 fl (80.0-96.0); PLATELET COUNT, AUTOMATED 199 10^3/uL (150-450); RED BLOOD COUNT 5.12 10^6/uL (4.30-6.10); WHITE BLOOD COUNT 8.1 10^3/uL (4.0-10.0)
[2022-02-18 11:51] LABS: INR 1.52; PROTHROMBIN TIME 18.7 SECONDS (12.7-14.5)
[2022-02-18 11:52] LABS: PARTIAL THROMBOPLASTIN TIME 38.1 SECONDS (25.9-37.0)
[2022-02-18 12:28] LABS: ALBUMIN 3.9 GM/DL (3.2-5.2); BILIRUBIN,TOTAL 0.9 MG/DL (0.2-1.0); CALCIUM LEVEL 10.2 MG/DL (8.8-10.2); CREATININE FOR GFR 1.53 MG/DL (0.70-1.30); GLOMERULAR FILTRATION RATE 46.6 (>35); POTASSIUM SERUM 4.2 MEQ/L (3.5-5.1); TOTAL PROTEIN 7.4 GM/DL (6.4-8.2)
[2022-02-18 13:22] LABS: TOTAL 25(OH) VITAMIN D 30.2 NG/ML (30.0-100.0)
== END ==
LOC: M LAB 09:43
PROVIDERS: ATTEND Orthopaedic Surgery
DX: M19.121 Post-traumatic osteoarthritis, right elbow (principal); M75.121 Complete rotator cuff tear or rupture of right shoulder, not specified as traumatic

== ENCOUNTER → 2022-06-01 | Outpatient (CLI) | payer MEDICARE ==
[~2022-06-01] MED LIST changes: +CLOP75TA99 PO; +ISOVUE-370 76% 100ML VIAL As Ordered ONE; -PLAV1TAB2 PO
== END ==
LOC: M RAD 16:00
PROVIDERS: ATTEND Internal Medicine
DX: R93.41 Abnormal radiologic findings on diagnostic imaging of renal pelvis, ureter, or bladder (principal); K44.9 Diaphragmatic hernia without obstruction or gangrene; N20.0 Calculus of kidney; N28.1 Cyst of kidney, acquired; K57.90 Diverticulosis of intestine, part unspecified, without perforation or abscess without bleeding; I70.0 Atherosclerosis of aorta; I25.10 Atherosclerotic heart disease of native coronary artery without angina pectoris
CPT/HCPCS: 74170; Q9967

== ENCOUNTER → 2022-06-18 | Outpatient (CLI) | payer MEDICARE ==
[~2022-06-18] MED LIST changes: -ISOVUE-370 76% 100ML VIAL As Ordered ONE
== END ==
LOC: M PAIN 13:00
PROVIDERS: ATTEND Nurse Practitioner Family
DX: M79.10 Myalgia, unspecified site (principal); G89.29 Other chronic pain; I10 Essential (primary) hypertension; G47.33 Obstructive sleep apnea (adult) (pediatric); Z87.891 Personal history of nicotine dependence; Z88.8 Allergy status to other drugs, medicaments and biological substances; Z79.01 Long term (current) use of anticoagulants; Z79.899 Other long term (current) drug therapy

== ENCOUNTER → 2022-07-04 | Outpatient (CLI) | payer MEDICARE | LOC: M LABSMTC 10:13 | PROVIDERS: ATTEND Anesthesiology | DX: Z01.812 Encounter for preprocedural laboratory examination (principal); Z11.52 Encounter for screening for COVID-19 ==

== ENCOUNTER → 2022-07-06 | Outpatient (CLI) | payer MEDICARE ==
[~2022-07-06] MED LIST changes: +BUPIVACAINE HCL 0.25% 10ML VIAL As Ordered ONE; +BUPIVACAINE HCL 0.25% 30ML VIAL As Ordered ONE; +TRIAMCINOLONE ACETONIDE SUSP 40MG/ML 1ML VIAL As Ordered ONE
== END ==
LOC: M PAIN 13:30
PROVIDERS: ATTEND Anesthesiology
DX: M79.18 Myalgia, other site (principal); G89.29 Other chronic pain; G47.33 Obstructive sleep apnea (adult) (pediatric); I10 Essential (primary) hypertension; Z87.891 Personal history of nicotine dependence; Z88.8 Allergy status to other drugs, medicaments and biological substances; Z79.01 Long term (current) use of anticoagulants; Z79.82 Long term (current) use of aspirin; Z79.899 Other long term (current) drug therapy

== ENCOUNTER → 2022-07-21 | Outpatient (CLI) | payer MEDICARE ==
[~2022-07-21] MED LIST changes: -BUPIVACAINE HCL 0.25% 10ML VIAL As Ordered ONE; -BUPIVACAINE HCL 0.25% 30ML VIAL As Ordered ONE; -TRIAMCINOLONE ACETONIDE SUSP 40MG/ML 1ML VIAL As Ordered ONE
== END ==
LOC: M PAIN 09:30
PROVIDERS: ATTEND Anesthesiology
DX: M79.18 Myalgia, other site (principal); G89.29 Other chronic pain; E11.9 Type 2 diabetes mellitus without complications; I10 Essential (primary) hypertension; G47.33 Obstructive sleep apnea (adult) (pediatric); Z87.891 Personal history of nicotine dependence; Z88.8 Allergy status to other drugs, medicaments and biological substances; Z79.01 Long term (current) use of anticoagulants; Z79.82 Long term (current) use of aspirin; Z79.84 Long term (current) use of oral hypoglycemic drugs; Z79.899 Other long term (current) drug therapy

== ENCOUNTER → 2022-07-26 | Outpatient (CLI) | payer MEDICARE | LOC: M PAIN 08:00 | PROVIDERS: ATTEND Anesthesiology | DX: M79.10 Myalgia, unspecified site (principal); M53.3 Sacrococcygeal disorders, not elsewhere classified; G89.29 Other chronic pain; I10 Essential (primary) hypertension; G47.33 Obstructive sleep apnea (adult) (pediatric); Z87.891 Personal history of nicotine dependence; Z88.8 Allergy status to other drugs, medicaments and biological substances; Z79.01 Long term (current) use of anticoagulants; Z79.82 Long term (current) use of aspirin; Z79.899 Other long term (current) drug therapy | CPT/HCPCS: 76000; G0463 ==

== ENCOUNTER → 2022-08-13 | Outpatient (CLI) | payer MEDICARE | LOC: M LABSMTC 09:11 | PROVIDERS: ATTEND Anesthesiology | DX: Z18.12 Retained nonmagnetic metal fragments (principal) ==

== ENCOUNTER → 2022-08-18 | Outpatient (CLI) | payer MEDICARE ==
[~2022-08-18] MED LIST changes: +BUPIVACAINE HCL 0.25% 30ML VIAL As Ordered ONE; +ISOVUE-M 300 61% 15ML VIAL As Ordered ONE; +LIDOCAINE 1% SDV 30ML VIAL As Ordered ONE; +TRIAMCINOLONE ACETONIDE SUSP 40MG/ML 1ML VIAL As Ordered ONE; +diazePAM 2 MG TAB As Ordered ONE; +oxyCODONE 5MG TAB As Ordered ONE
== END ==
LOC: M PAIN 09:30
PROVIDERS: ATTEND Anesthesiology
DX: M46.1 Sacroiliitis, not elsewhere classified (principal); G89.29 Other chronic pain; G47.33 Obstructive sleep apnea (adult) (pediatric); I10 Essential (primary) hypertension; M79.10 Myalgia, unspecified site; Z87.891 Personal history of nicotine dependence; Z88.8 Allergy status to other drugs, medicaments and biological substances; Z79.01 Long term (current) use of anticoagulants; Z79.82 Long term (current) use of aspirin; Z79.899 Other long term (current) drug therapy
CPT/HCPCS: G0260; J3301; Q9967

== ENCOUNTER → 2022-09-02 | Outpatient (CLI) | payer MEDICARE ==
[~2022-09-02] MED LIST changes: -BUPIVACAINE HCL 0.25% 30ML VIAL As Ordered ONE; -ISOVUE-M 300 61% 15ML VIAL As Ordered ONE; -LIDOCAINE 1% SDV 30ML VIAL As Ordered ONE; -TRIAMCINOLONE ACETONIDE SUSP 40MG/ML 1ML VIAL As Ordered ONE; -diazePAM 2 MG TAB As Ordered ONE; -oxyCODONE 5MG TAB As Ordered ONE
== END ==
LOC: M PAIN 10:30
PROVIDERS: ATTEND Anesthesiology
DX: G89.29 Other chronic pain (principal); M53.3 Sacrococcygeal disorders, not elsewhere classified; I10 Essential (primary) hypertension; G47.33 Obstructive sleep apnea (adult) (pediatric); M79.10 Myalgia, unspecified site; Z87.891 Personal history of nicotine dependence; Z88.8 Allergy status to other drugs, medicaments and biological substances; Z79.01 Long term (current) use of anticoagulants; Z79.82 Long term (current) use of aspirin; Z79.899 Other long term (current) drug therapy

== ENCOUNTER → 2022-09-14 | Outpatient (CLI) | payer MEDICARE | LOC: M PAIN 08:00 | PROVIDERS: ATTEND Anesthesiology | DX: M53.3 Sacrococcygeal disorders, not elsewhere classified (principal); M79.18 Myalgia, other site; I10 Essential (primary) hypertension; G47.33 Obstructive sleep apnea (adult) (pediatric); Z87.891 Personal history of nicotine dependence; Z88.8 Allergy status to other drugs, medicaments and biological substances; Z79.01 Long term (current) use of anticoagulants; Z79.82 Long term (current) use of aspirin; Z79.899 Other long term (current) drug therapy | CPT/HCPCS: 77003; G0463 ==

== ENCOUNTER → 2022-09-14 | Outpatient (CLI) | payer MEDICARE | LOC: M PAIN 08:00 | PROVIDERS: ATTEND Nurse Practitioner Family | DX: M53.3 Sacrococcygeal disorders, not elsewhere classified (principal); M79.18 Myalgia, other site ==

== ENCOUNTER → 2022-09-17 | Outpatient (CLI) | payer MEDICARE ==
[~2022-09-17] MED LIST changes: +BUPIVACAINE HCL 0.25% 10ML VIAL As Ordered ONE; +BUPIVACAINE HCL 0.25% 30ML VIAL As Ordered ONE; +TRIAMCINOLONE ACETONIDE SUSP 40MG/ML 1ML VIAL As Ordered ONE; +diazePAM 2 MG TAB As Ordered ONE
== END ==
LOC: M PAIN 15:00
PROVIDERS: ATTEND Anesthesiology
DX: M79.18 Myalgia, other site (principal); I13.0 Hypertensive heart and chronic kidney disease with heart failure and stage 1 through stage 4 chronic kidney disease, or unspecified chronic kidney disease; N18.30 Chronic kidney disease, stage 3 unspecified; I48.0 Paroxysmal atrial fibrillation; I25.10 Atherosclerotic heart disease of native coronary artery without angina pectoris; E78.00 Pure hypercholesterolemia, unspecified; M10.9 Gout, unspecified; I50.32 Chronic diastolic (congestive) heart failure; G47.33 Obstructive sleep apnea (adult) (pediatric); Z87.891 Personal history of nicotine dependence; Z79.82 Long term (current) use of aspirin; Z79.891 Long term (current) use of opiate analgesic; Z79.899 Other long term (current) drug therapy; Z88.8 Allergy status to other drugs, medicaments and biological substances
CPT/HCPCS: 20552; J3301

== ENCOUNTER 2022-10-01 14:21 | Inpatient (IN) | payer MEDICARE ==
[~2022-10-01] VITALS: Ht 177.8 cm; Wt 75.5 kg
[~2022-10-01 14:21] MED LIST changes: -HYDR-3713 PO; -ZEGE20CA4 PO; -[UNRECOGNIZED DRUG - REMARK] TOP; -med rec comment
[2022-10-01 16:27] VITALS: BP 137/89
[2022-10-01] MEDS ORDERED: ACETAMINOPHEN TAB 650MG DOSE (2X325MG) PO PRN (16:30)
[2022-10-01 17:07] LABS: BASO % 0.3 % (0.0-1.0); EOS # 0.1 10^3/uL (0.0-0.5); EOS % 0.8 % (0.0-3.0); HEMATOCRIT 39.6 % (42.0-52.0); HEMOGLOBIN 13.2 g/dl (13.5-17.5); LYMPH # 1.7 10^3/uL (1.5-5.0); LYMPH % 16.4 % (24.0-44.0); MEAN CORPUSCULAR HGB CONC 33.3 g/dl (32.0-36.5); MONO # 0.6 10^3/uL (0.0-0.8); MONO % 5.8 % (2.0-8.0); NEUTROPHILS # 7.7 10^3/uL (1.5-8.5); NEUTROPHILS % 76.3 % (36.0-66.0); PLATELET COUNT, AUTOMATED 226 10^3/uL (150-450); WHITE BLOOD COUNT 10.1 10^3/uL (4.0-10.0)
[2022-10-01 17:41] LABS: INR 1.64; PROTHROMBIN TIME 19.7 SECONDS (12.5-14.5)
[2022-10-01 17:44] LABS: ALBUMIN 3.9 G/DL (3.2-5.2); BILIRUBIN,TOTAL 0.7 MG/DL (0.3-1.2); CALCIUM LEVEL 12.6 MG/DL (8.3-10.6); CREATININE FOR GFR 2.08 MG/DL (0.70-1.30); GLOMERULAR FILTRATION RATE 32.7 (>35); MAGNESIUM LEVEL 2.4 MG/DL (1.8-2.4); POTASSIUM SERUM 3.8 MMOL/L (3.5-5.1); PTH INTACT 21.3 PG/ML (18.5-88.0)
[2022-10-01 17:46] LABS: THYROID STIMULATING HORMONE 0.82 uIU/ML (0.55-4.78)
[2022-10-01] MEDS ORDERED: TRAM50TA2 PO (18:05)
[2022-10-01] MEDS ORDERED: HYDR-3713 PO (18:05)
[2022-10-01] MEDS ORDERED: [UNRECOGNIZED DRUG - REMARK] TOP (18:05)
[2022-10-01] MEDS ORDERED: ZEGE20CA4 PO (18:10)
[2022-10-01] MEDS ORDERED: med rec comment (18:15)
[2022-10-01] MEDS ORDERED: HOME MED LIST COMPLETE! XX SCH (18:20)
[2022-10-01] MEDS ORDERED: MIRALAX *UNIT DOSE* 17GM PACKET PO PRN (18:25)
[2022-10-01] MEDS ORDERED: POLYVINYL ALCOHOL OPHTH SOLN 15ML (LIQUITEARS) OU PRN (18:25)
[2022-10-01] MEDS ORDERED: ALBUTEROL 90 MCG/ACT 8GM HFA INHALER INH PRN (18:25)
[2022-10-01] MEDS ORDERED: HEPARIN SOD (PORCINE) 5000UNITS/ML 1ML VIAL/SYRINGE SQ SCH (18:25)
[2022-10-01] MEDS: NS 1,000 ML IV SCH (18:38)
[2022-10-01 18:49] LABS: PHOSPHORUS LEVEL 4.7 MG/DL (2.4-5.1)
[2022-10-01 18:52] LABS: TOTAL 25(OH) VITAMIN D 37.4 NG/ML (20.0-100.0)
[2022-10-01] MEDS: RIVAROXABAN 15MG TAB (XARELTO) PO SCH (19:08)
[2022-10-01 19:20] VITALS: BP_SYST 160; BP_SYST 167; BP_DIAS 80; BP_DIAS 96
[2022-10-01] MEDS: BRINZOLAMIDE 1% OPHTH SUSP (AZOPT) 10ML OU SCH (20:10)
[2022-10-01] MEDS: POLYVINYL ALCOHOL OPHTH SOLN 15ML (LIQUITEARS) OU SCH (20:10)
[2022-10-01] MEDS: CALCITONIN SALMON (MIACALCIN) 400INTERNATIONAL UNITS/2ML VIAL SQ SCH (20:44)
[2022-10-01 23:24] VITALS: BP 144/87
[2022-10-02] MEDS: NORCO, ANEXSIA 5/325MG TABLET (HYDROcodone/ACETAMINOPHEN) PO PRN ×2 (00:11→11:20)
[2022-10-02] MEDS ORDERED: ANALGESIC BALM CRM 3OZ TOP PRN (01:15)
[2022-10-02 03:36] VITALS: BP 133/96
[2022-10-02] MEDS: NS 1,000 ML IV SCH ×3 (03:42→20:10)
[2022-10-02 04:21] LABS: HEMATOCRIT 35.5 % (42.0-52.0); HEMOGLOBIN 11.7 g/dl (13.5-17.5); MEAN CORPUSCULAR HEMOGLOBIN 32.9 pg (27.0-33.0); MEAN CORPUSCULAR VOLUME 99.7 fl (80.0-96.0); PLATELET COUNT, AUTOMATED 205 10^3/uL (150-450); RED BLOOD COUNT 3.56 10^6/uL (4.30-6.10); WHITE BLOOD COUNT 10.9 10^3/uL (4.0-10.0)
[2022-10-02 07:22] VITALS: BP 162/92
[2022-10-02 07:54] LABS: ALBUMIN 3.3 G/DL (3.2-5.2); BILIRUBIN,TOTAL 0.6 MG/DL (0.3-1.2); CALCIUM LEVEL 10.3 MG/DL (8.3-10.6); CREATININE FOR GFR 1.74 MG/DL (0.70-1.30); GLOMERULAR FILTRATION RATE 40.2 (>35); POTASSIUM SERUM 3.8 MMOL/L (3.5-5.1); TOTAL PROTEIN 5.9 G/DL (5.7-8.2)
[2022-10-02] MEDS: ASPIRIN 81MG ENTERIC TABLET PO SCH (08:26)
[2022-10-02] MEDS: FUROSEMIDE 100MG/10ML VIAL IV SCH ×2 (08:26→18:07)
[2022-10-02] MEDS: POLYVINYL ALCOHOL OPHTH SOLN 15ML (LIQUITEARS) OU SCH ×4 (08:27→20:10)
[2022-10-02] MEDS: BRINZOLAMIDE 1% OPHTH SUSP (AZOPT) 10ML OU SCH ×3 (08:27→20:10)
[2022-10-02 10:00] LABS: ALBUMIN 3.2 G/DL (3.2-5.2); BILIRUBIN,TOTAL 0.8 MG/DL (0.3-1.2); CALCIUM LEVEL 10.4 MG/DL (8.3-10.6); CREATININE FOR GFR 1.64 MG/DL (0.70-1.30); POTASSIUM SERUM 3.8 MMOL/L (3.5-5.1); TOTAL PROTEIN 5.9 G/DL (5.7-8.2)
[2022-10-02] MEDS: CALCITONIN SALMON (MIACALCIN) 400INTERNATIONAL UNITS/2ML VIAL SQ SCH ×2 (11:09→20:16)
[2022-10-02 11:48] VITALS: BP 122/82
[2022-10-02] MEDS: OMEPRAZOLE 20MG CAP PO SCH (18:06)
[2022-10-02] MEDS: RIVAROXABAN 15MG TAB (XARELTO) PO SCH (18:06)
[2022-10-02 18:17] VITALS: BP 153/82
[2022-10-02 18:59] LABS: BILIRUBIN,TOTAL 0.7 MG/DL (0.3-1.2); CALCIUM LEVEL 9.5 MG/DL (8.3-10.6); CREATININE FOR GFR 1.59 MG/DL (0.70-1.30); GLOMERULAR FILTRATION RATE 44.6 (>35); POTASSIUM SERUM 3.5 MMOL/L (3.5-5.1); TOTAL PROTEIN 5.6 G/DL (5.7-8.2)
[2022-10-02 19:59] VITALS: BP 155/98
[2022-10-02] MEDS ORDERED: traMADol 50 MG TAB PO ONE (20:00)
[2022-10-02] MEDS: FLUTICASONE PROP 0.05% NASAL SPRAY 16 GM (FLONASE) NARES PRN (23:44)
[2022-10-02 23:55] VITALS: BP 139/93
[2022-10-03 04:08] VITALS: BP 164/81
[2022-10-03] MEDS: NS 1,000 ML IV SCH (04:16)
[2022-10-03 06:17] LABS: HEMATOCRIT 34.4 % (42.0-52.0); HEMOGLOBIN 11.7 g/dl (13.5-17.5); MEAN CORPUSCULAR HEMOGLOBIN 33.3 pg (27.0-33.0); PLATELET COUNT, AUTOMATED 198 10^3/uL (150-450); RED BLOOD COUNT 3.51 10^6/uL (4.30-6.10)
[2022-10-03 06:43] LABS: ALBUMIN 3.3 G/DL (3.2-5.2); BILIRUBIN,TOTAL 0.7 MG/DL (0.3-1.2); CALCIUM LEVEL 8.9 MG/DL (8.3-10.6); CREATININE FOR GFR 1.49 MG/DL (0.70-1.30); GLOMERULAR FILTRATION RATE 48.1 (>35); POTASSIUM SERUM 3.2 MMOL/L (3.5-5.1); TOTAL PROTEIN 5.8 G/DL (5.7-8.2)
[2022-10-03 07:40] VITALS: BP 137/86
[2022-10-03] MEDS ORDERED: POTASSIUM CHLORIDE 10% LIQ 20MEQ/15ML UDC PO ONE (08:00)
[2022-10-03] MEDS: OMEPRAZOLE 20MG CAP PO SCH (08:54)
[2022-10-03] MEDS: FUROSEMIDE 40 MG TAB PO SCH (08:54)
[2022-10-03] MEDS: CALCITONIN SALMON (MIACALCIN) 400INTERNATIONAL UNITS/2ML VIAL SQ SCH ×2 (08:54→21:03)
[2022-10-03] MEDS: ASPIRIN 81MG ENTERIC TABLET PO SCH (08:54)
[2022-10-03] MEDS: BRINZOLAMIDE 1% OPHTH SUSP (AZOPT) 10ML OU SCH ×3 (08:55→21:03)
[2022-10-03] MEDS: POLYVINYL ALCOHOL OPHTH SOLN 15ML (LIQUITEARS) OU SCH ×4 (08:55→21:03)
[2022-10-03] MEDS ORDERED: traMADol 50 MG TAB PO SCH (09:00)
[2022-10-03] MEDS: traMADol 50 MG TAB PO PRN ×2 (09:16→22:14)
[2022-10-03 15:20] VITALS: BP 138/94
[2022-10-03] MEDS: ONDANSETRON 4MG 2ML VIAL IV SCH ×3 (15:22→22:05)
[2022-10-03] MEDS: RIVAROXABAN 15MG TAB (XARELTO) PO SCH (17:44)
[2022-10-03 18:47] LABS: ALBUMIN 3.1 G/DL (3.2-5.2); BILIRUBIN,TOTAL 0.8 MG/DL (0.3-1.2); CALCIUM LEVEL 9.1 MG/DL (8.3-10.6); CREATININE FOR GFR 1.44 MG/DL (0.70-1.30); POTASSIUM SERUM 3.8 MMOL/L (3.5-5.1); TOTAL PROTEIN 5.8 G/DL (5.7-8.2)
[2022-10-03 21:03] VITALS: BP 133/82
[2022-10-03 21:43] LABS: ABG BASE EXCESS -0.8 (-2.0-2.0); ABG HCO3 22.5 MMOL/L (22.0-26.0); ABG O2 SATURATION 98.1 % (95.0-99.0); ABG PARTIAL PRESSURE CO2 32.8 mmHg (35.0-45.0); ABG PARTIAL PRESSURE O2 100.5 mmHg (75.0-100.0); ABG STANDARD HCO3 23.8 MMOL/L. (22.0-26.0); ABG TOTAL CO2 23.5 MMOL/L (23.0-31.0); ABG pH (ARTERIAL) 7.454 UNITS (7.350-7.450)
[2022-10-03 23:46] VITALS: BP 143/89
[2022-10-04] VITALS (7 sets, daily range): BP systolic 114–158; BP diastolic 73–101
[2022-10-04] MEDS: ONDANSETRON 4MG 2ML VIAL IV SCH (03:00)
[2022-10-04 07:49] LABS: HEMATOCRIT 34.4 % (42.0-52.0); HEMOGLOBIN 11.4 g/dl (13.5-17.5); MEAN CORPUSCULAR HEMOGLOBIN 32.9 pg (27.0-33.0); MEAN CORPUSCULAR HGB CONC 33.1 g/dl (32.0-36.5); MEAN CORPUSCULAR VOLUME 99.4 fl (80.0-96.0); PLATELET COUNT, AUTOMATED 199 10^3/uL (150-450); RED BLOOD COUNT 3.46 10^6/uL (4.30-6.10); WHITE BLOOD COUNT 10.9 10^3/uL (4.0-10.0)
[2022-10-04] MEDS ORDERED: ONDANSETRON 4MG 2ML VIAL IV PRN (08:30)
[2022-10-04 08:34] LABS: BILIRUBIN,TOTAL 0.8 MG/DL (0.3-1.2); CALCIUM LEVEL 9.4 MG/DL (8.3-10.6); CREATININE FOR GFR 1.49 MG/DL (0.70-1.30); GLOMERULAR FILTRATION RATE 48.1 (>35); POTASSIUM SERUM 3.6 MMOL/L (3.5-5.1); TOTAL PROTEIN 5.5 G/DL (5.7-8.2)
[2022-10-04] MEDS: ASPIRIN 81MG ENTERIC TABLET PO SCH (09:56)
[2022-10-04] MEDS: BRINZOLAMIDE 1% OPHTH SUSP (AZOPT) 10ML OU SCH ×3 (09:57→20:33)
[2022-10-04] MEDS: FUROSEMIDE 40 MG TAB PO SCH (09:57)
[2022-10-04] MEDS: OMEPRAZOLE 20MG CAP PO SCH (09:57)
[2022-10-04] MEDS: POLYVINYL ALCOHOL OPHTH SOLN 15ML (LIQUITEARS) OU SCH ×4 (09:57→20:33)
[2022-10-04] MEDS: traMADol 50 MG TAB PO PRN (14:49)
[2022-10-04] MEDS: ROSUVASTATIN 10 MG TAB (CRESTOR) PO SCH (17:30)
[2022-10-04] MEDS: RIVAROXABAN 15MG TAB (XARELTO) PO SCH (17:31)
[2022-10-04] MEDS: NORCO, ANEXSIA 5/325MG TABLET (HYDROcodone/ACETAMINOPHEN) PO PRN (17:31)
[2022-10-04 18:38] LABS: ALBUMIN 2.9 G/DL (3.2-5.2); BILIRUBIN,TOTAL 0.7 MG/DL (0.3-1.2); CREATININE FOR GFR 1.47 MG/DL (0.70-1.30); GLOMERULAR FILTRATION RATE 48.8 (>35); POTASSIUM SERUM 3.4 MMOL/L (3.5-5.1); TOTAL PROTEIN 5.5 G/DL (5.7-8.2)
[2022-10-04] MEDS ORDERED: BISACODYL 5MG TAB PO PRN (21:25)
[2022-10-04] MEDS: DOCUSATE SODIUM 100MG CAPSULE PO SCH (21:29)
[2022-10-05 05:42] VITALS: BP 148/102
[2022-10-05 06:17] LABS: HEMATOCRIT 34.8 % (42.0-52.0); HEMOGLOBIN 11.7 g/dl (13.5-17.5); MEAN CORPUSCULAR HEMOGLOBIN 33.2 pg (27.0-33.0); MEAN CORPUSCULAR HGB CONC 33.6 g/dl (32.0-36.5); MEAN CORPUSCULAR VOLUME 98.9 fl (80.0-96.0); PLATELET COUNT, AUTOMATED 191 10^3/uL (150-450); RED BLOOD COUNT 3.52 10^6/uL (4.30-6.10); WHITE BLOOD COUNT 10.8 10^3/uL (4.0-10.0)
[2022-10-05 06:43] LABS: ALBUMIN 3.1 G/DL (3.2-5.2); BILIRUBIN,TOTAL 0.8 MG/DL (0.3-1.2); CALCIUM LEVEL 9.2 MG/DL (8.3-10.6); CREATININE FOR GFR 1.45 MG/DL (0.70-1.30); GLOMERULAR FILTRATION RATE 49.6 (>35); POTASSIUM SERUM 3.3 MMOL/L (3.5-5.1); TOTAL PROTEIN 5.6 G/DL (5.7-8.2)
[2022-10-05] MEDS: FUROSEMIDE 40 MG TAB PO SCH (09:00)
[2022-10-05] MEDS ORDERED: POTASSIUM CHLORIDE 10MEQ SR TABLET PO ONE (09:00)
[2022-10-05] MEDS: OMEPRAZOLE 20MG CAP PO SCH (09:59)
[2022-10-05] MEDS: ASPIRIN 81MG ENTERIC TABLET PO SCH (09:59)
[2022-10-05] MEDS: POLYVINYL ALCOHOL OPHTH SOLN 15ML (LIQUITEARS) OU SCH ×4 (10:00→20:29)
[2022-10-05] MEDS: BRINZOLAMIDE 1% OPHTH SUSP (AZOPT) 10ML OU SCH ×3 (10:00→20:29)
[2022-10-05] MEDS: DOCUSATE SODIUM 100MG CAPSULE PO SCH ×2 (10:00→20:29)
[2022-10-05] MEDS: traMADol 50 MG TAB PO PRN (13:05)
[2022-10-05 14:00] VITALS: BP 102/60
[2022-10-05] MEDS ORDERED: FUROSEMIDE 40 MG TAB PO ONE (15:00)
[2022-10-05 16:25] VITALS: BP 138/92
[2022-10-05] MEDS: RIVAROXABAN 15MG TAB (XARELTO) PO SCH (18:20)
[2022-10-05 18:56] LABS: ALBUMIN 3.1 G/DL (3.2-5.2); BILIRUBIN,TOTAL 0.7 MG/DL (0.3-1.2); CALCIUM LEVEL 9.3 MG/DL (8.3-10.6); CREATININE FOR GFR 1.43 MG/DL (0.70-1.30); GLOMERULAR FILTRATION RATE 50.4 (>35); POTASSIUM SERUM 3.7 MMOL/L (3.5-5.1); TOTAL PROTEIN 5.8 G/DL (5.7-8.2)
[2022-10-05 20:34] VITALS: BP 121/85
[2022-10-05] MEDS: NORCO, ANEXSIA 5/325MG TABLET (HYDROcodone/ACETAMINOPHEN) PO PRN (22:32)
[2022-10-06 05:20] VITALS: BP_SYST 127; BP_SYST 150; BP_DIAS 73; BP_DIAS 85
[2022-10-06 07:21] LABS: HEMATOCRIT 34.5 % (42.0-52.0); HEMOGLOBIN 11.8 g/dl (13.5-17.5); MEAN CORPUSCULAR HEMOGLOBIN 33.1 pg (27.0-33.0); MEAN CORPUSCULAR HGB CONC 34.2 g/dl (32.0-36.5); MEAN CORPUSCULAR VOLUME 96.6 fl (80.0-96.0); PLATELET COUNT, AUTOMATED 192 10^3/uL (150-450); RED BLOOD COUNT 3.57 10^6/uL (4.30-6.10); WHITE BLOOD COUNT 9.6 10^3/uL (4.0-10.0)
[2022-10-06 08:16] LABS: ALBUMIN 2.8 G/DL (3.2-5.2); BILIRUBIN,TOTAL 0.6 MG/DL (0.3-1.2); CALCIUM LEVEL 8.9 MG/DL (8.3-10.6); CREATININE FOR GFR 1.45 MG/DL (0.70-1.30); GLOMERULAR FILTRATION RATE 49.6 (>35); POTASSIUM SERUM 3.5 MMOL/L (3.5-5.1); TOTAL PROTEIN 5.3 G/DL (5.7-8.2)
[2022-10-06] MEDS: NORCO, ANEXSIA 5/325MG TABLET (HYDROcodone/ACETAMINOPHEN) PO PRN (09:01)
[2022-10-06] MEDS: DOCUSATE SODIUM 100MG CAPSULE PO SCH ×2 (09:02→20:26)
[2022-10-06] MEDS: ASPIRIN 81MG ENTERIC TABLET PO SCH (09:02)
[2022-10-06] MEDS: OMEPRAZOLE 20MG CAP PO SCH (09:02)
[2022-10-06] MEDS: BRINZOLAMIDE 1% OPHTH SUSP (AZOPT) 10ML OU SCH ×3 (09:04→20:26)
[2022-10-06] MEDS: POLYVINYL ALCOHOL OPHTH SOLN 15ML (LIQUITEARS) OU SCH ×4 (09:04→20:26)
[2022-10-06 14:00] VITALS: BP 108/76
[2022-10-06] MEDS: ROSUVASTATIN 10 MG TAB (CRESTOR) PO SCH (17:33)
[2022-10-06] MEDS: RIVAROXABAN 15MG TAB (XARELTO) PO SCH (17:33)
[2022-10-06 19:22] LABS: ALBUMIN 3.1 G/DL (3.2-5.2); BILIRUBIN,TOTAL 0.5 MG/DL (0.3-1.2); CALCIUM LEVEL 9.7 MG/DL (8.3-10.6); CREATININE FOR GFR 1.56 MG/DL (0.70-1.30); GLOMERULAR FILTRATION RATE 45.6 (>35); POTASSIUM SERUM 3.8 MMOL/L (3.5-5.1); TOTAL PROTEIN 5.9 G/DL (5.7-8.2)
[2022-10-06] MEDS: traMADol 50 MG TAB PO PRN (20:29)
[2022-10-06 20:32] VITALS: BP 126/81
[2022-10-06] MEDS: FLUTICASONE PROP 0.05% NASAL SPRAY 16 GM (FLONASE) NARES PRN (21:21)
[2022-10-07] MEDS ORDERED: NORCO, ANEXSIA 5/325MG TABLET (HYDROcodone/ACETAMINOPHEN) PO ONE (00:05)
[2022-10-07 06:00] VITALS: BP 117/71
[2022-10-07 07:14] LABS: BASO % 0.2 % (0.0-1.0); EOS # 0.2 10^3/uL (0.0-0.5); EOS % 1.9 % (0.0-3.0); HEMOGLOBIN 11.5 g/dl (13.5-17.5); LYMPH # 1.7 10^3/uL (1.5-5.0); LYMPH % 18.2 % (24.0-44.0); MEAN CORPUSCULAR HEMOGLOBIN 33.2 pg (27.0-33.0); MEAN CORPUSCULAR HGB CONC 33.8 g/dl (32.0-36.5); MEAN CORPUSCULAR VOLUME 98.3 fl (80.0-96.0); MONO # 0.5 10^3/uL (0.0-0.8); MONO % 4.8 % (2.0-8.0); NEUTROPHILS % 74.6 % (36.0-66.0); PLATELET COUNT, AUTOMATED 176 10^3/uL (150-450); RED BLOOD COUNT 3.46 10^6/uL (4.30-6.10); WHITE BLOOD COUNT 9.3 10^3/uL (4.0-10.0)
[2022-10-07 07:47] LABS: ALBUMIN 2.7 G/DL (3.2-5.2); BILIRUBIN,TOTAL 0.5 MG/DL (0.3-1.2); CALCIUM LEVEL 8.9 MG/DL (8.3-10.6); CREATININE FOR GFR 1.42 MG/DL (0.70-1.30); GLOMERULAR FILTRATION RATE 50.8 (>35); MAGNESIUM LEVEL 1.7 MG/DL (1.8-2.4); POTASSIUM SERUM 3.5 MMOL/L (3.5-5.1); TOTAL PROTEIN 5.1 G/DL (5.7-8.2)
[2022-10-07] MEDS ORDERED: MAGNESIUM OXIDE 400MG TAB (MAG-OX) PO ONE (07:55)
[2022-10-07] MEDS: DOCUSATE SODIUM 100MG CAPSULE PO SCH ×2 (08:08→21:49)
[2022-10-07] MEDS: OMEPRAZOLE 20MG CAP PO SCH (08:08)
[2022-10-07] MEDS: ASPIRIN 81MG ENTERIC TABLET PO SCH (08:08)
[2022-10-07] MEDS: BRINZOLAMIDE 1% OPHTH SUSP (AZOPT) 10ML OU SCH ×3 (08:09→21:51)
[2022-10-07] MEDS: POLYVINYL ALCOHOL OPHTH SOLN 15ML (LIQUITEARS) OU SCH ×4 (08:09→21:51)
[2022-10-07] MEDS ORDERED: PILL CUTTER 1 EACH XX PRN (11:10)
[2022-10-07] MEDS ORDERED: IBUPROFEN 400MG TAB PO ONE (11:15)
[2022-10-07] MEDS: ACETAMINOPHEN 500 MG TAB PO SCH ×3 (12:22→21:50)
[2022-10-07] MEDS: LIDOCAINE 5% (LIDODERM) PATCH TD SCH (12:23)
[2022-10-07 14:00] VITALS: BP 111/65
[2022-10-07] MEDS: RIVAROXABAN 15MG TAB (XARELTO) PO SCH (18:13)
[2022-10-07 19:50] VITALS: BP 120/66
[2022-10-07] MEDS ORDERED: IBUPROFEN 200MG TAB PO SCH (21:00)
[2022-10-07] MEDS: FLUTICASONE PROP 0.05% NASAL SPRAY 16 GM (FLONASE) NARES PRN (21:51)
[2022-10-07] MEDS: oxyCODONE 5MG TAB PO PRN (22:38)
[2022-10-07] MEDS: IBUPROFEN 200MG TAB PO SCH (22:40)
[2022-10-08] MEDS: ACETAMINOPHEN 500 MG TAB PO SCH ×4 (01:18→14:11)
[2022-10-08 06:00] VITALS: BP 140/87
[2022-10-08 07:14] LABS: BASO % 0.2 % (0.0-1.0); EOS # 0.2 10^3/uL (0.0-0.5); EOS % 1.2 % (0.0-3.0); HEMATOCRIT 34.9 % (42.0-52.0); HEMOGLOBIN 11.8 g/dl (13.5-17.5); LYMPH # 0.9 10^3/uL (1.5-5.0); LYMPH % 5.8 % (24.0-44.0); MEAN CORPUSCULAR HEMOGLOBIN 33.1 pg (27.0-33.0); MEAN CORPUSCULAR HGB CONC 33.8 g/dl (32.0-36.5); MONO # 0.6 10^3/uL (0.0-0.8); MONO % 3.7 % (2.0-8.0); NEUTROPHILS % 88.7 % (36.0-66.0); PLATELET COUNT, AUTOMATED 171 10^3/uL (150-450); RED BLOOD COUNT 3.56 10^6/uL (4.30-6.10); WHITE BLOOD COUNT 14.7 10^3/uL (4.0-10.0)
[2022-10-08 07:40] LABS: ALBUMIN 2.8 G/DL (3.2-5.2); BILIRUBIN,TOTAL 0.5 MG/DL (0.3-1.2); CALCIUM LEVEL 8.9 MG/DL (8.3-10.6); CREATININE FOR GFR 1.47 MG/DL (0.70-1.30); GLOMERULAR FILTRATION RATE 48.8 (>35); MAGNESIUM LEVEL 1.8 MG/DL (1.8-2.4); POTASSIUM SERUM 3.8 MMOL/L (3.5-5.1); TOTAL PROTEIN 5.2 G/DL (5.7-8.2)
[2022-10-08] MEDS: LIDOCAINE 5% (LIDODERM) PATCH TD SCH (08:21)
[2022-10-08] MEDS: ASPIRIN 81MG ENTERIC TABLET PO SCH (08:21)
[2022-10-08] MEDS: OMEPRAZOLE 20MG CAP PO SCH (08:21)
[2022-10-08] MEDS: BRINZOLAMIDE 1% OPHTH SUSP (AZOPT) 10ML OU SCH (08:21)
[2022-10-08] MEDS: POLYVINYL ALCOHOL OPHTH SOLN 15ML (LIQUITEARS) OU SCH ×2 (08:21→14:11)
[2022-10-08 08:23] VITALS: BP 126/80
[2022-10-08] MEDS: DOCUSATE SODIUM 100MG CAPSULE PO SCH (08:25)
[2022-10-08] MEDS ORDERED: LACTOBACILLUS ACIDOPHILUS CAP (BACID) PO SCH (10:15)
[2022-10-08 11:28] LABS: BASO % 0.2 % (0.0-1.0); EOS # 0.1 10^3/uL (0.0-0.5); EOS % 0.6 % (0.0-3.0); HEMATOCRIT 33.3 % (42.0-52.0); HEMOGLOBIN 11.1 g/dl (13.5-17.5); LYMPH # 0.7 10^3/uL (1.5-5.0); LYMPH % 5.2 % (24.0-44.0); MEAN CORPUSCULAR HEMOGLOBIN 32.7 pg (27.0-33.0); MEAN CORPUSCULAR HGB CONC 33.3 g/dl (32.0-36.5); MEAN CORPUSCULAR VOLUME 98.2 fl (80.0-96.0); MONO # 0.4 10^3/uL (0.0-0.8); MONO % 2.8 % (2.0-8.0); NEUTROPHILS # 11.5 10^3/uL (1.5-8.5); NEUTROPHILS % 90.8 % (36.0-66.0); PLATELET COUNT, AUTOMATED 177 10^3/uL (150-450); RED BLOOD COUNT 3.39 10^6/uL (4.30-6.10); WHITE BLOOD COUNT 12.7 10^3/uL (4.0-10.0)
[2022-10-08] MEDS: IBUPROFEN 200MG TAB PO SCH (11:54)
[2022-10-08] MEDS: oxyCODONE 5MG TAB PO PRN (12:53)
[2022-10-08] MEDS ORDERED: FURO40TA2 PO (13:19)
[2022-10-08] MEDS ORDERED: ADVI200T PO (13:19)
[2022-10-08] MEDS ORDERED: SENO8.6T10 PO (13:19)
[2022-10-08] MEDS ORDERED: RISATAB3 PO (13:19)
[2022-10-08] MEDS ORDERED: SIME80CH6 PO (13:19)
[2022-10-08] MEDS ORDERED: OXYC-517 PO ×2 (13:19→13:20)
[2022-10-08] MEDS ORDERED: TRAM50TA2 PO ×2 (13:19→13:20)
[2022-10-08] MEDS ORDERED: ACET-683 PO (13:19)
[2022-10-08] MEDS ORDERED: AMLO25TA PO (13:19)
[2022-10-08] MEDS ORDERED: LIDO5DIS41 TD (13:40)
== END 2022-10-08 15:09 | disposition home or self-care (01) | DRG 641 ==
LOC: M ED INP 15:37 → M PCU 15:48 → M MSPAV 10-04 16:43
PROVIDERS: ADMIT Family Medicine; ATTEND Family Medicine
DX: E83.52 Hypercalcemia (principal); N17.9 Acute kidney failure, unspecified; I13.0 Hypertensive heart and chronic kidney disease with heart failure and stage 1 through stage 4 chronic kidney disease, or unspecified chronic kidney disease; N25.81 Secondary hyperparathyroidism of renal origin; N18.30 Chronic kidney disease, stage 3 unspecified; I48.91 Unspecified atrial fibrillation; K21.9 Gastro-esophageal reflux disease without esophagitis; I50.9 Heart failure, unspecified; I25.10 Atherosclerotic heart disease of native coronary artery without angina pectoris; Z95.2 Presence of prosthetic heart valve; G47.33 Obstructive sleep apnea (adult) (pediatric); E78.5 Hyperlipidemia, unspecified; Z79.899 Other long term (current) drug therapy; Z88.8 Allergy status to other drugs, medicaments and biological substances; M10.9 Gout, unspecified; K44.9 Diaphragmatic hernia without obstruction or gangrene; Z98.41 Cataract extraction status, right eye; Z98.42 Cataract extraction status, left eye; Z87.891 Personal history of nicotine dependence; Z68.24 Body mass index [BMI] 24.0-24.9, adult; K59.00 Constipation, unspecified; Z79.82 Long term (current) use of aspirin

== ENCOUNTER → 2022-10-01 | Outpatient (CLI) | payer MEDICARE ==
[~2022-10-01] MED LIST changes: -BUPIVACAINE HCL 0.25% 10ML VIAL As Ordered ONE; -BUPIVACAINE HCL 0.25% 30ML VIAL As Ordered ONE; +HYDR-3713 PO; -TRIAMCINOLONE ACETONIDE SUSP 40MG/ML 1ML VIAL As Ordered ONE; +ZEGE20CA4 PO; +[UNRECOGNIZED DRUG - REMARK] TOP; -diazePAM 2 MG TAB As Ordered ONE; +med rec comment
== END ==
LOC: M PLAIMG 09:47
PROVIDERS: ATTEND Internal Medicine
DX: R29.6 Repeated falls (principal); I65.23 Occlusion and stenosis of bilateral carotid arteries

== ENCOUNTER → 2022-10-01 | Outpatient (CLI) | payer MEDICARE | LOC: M PLALAB 10:31 | PROVIDERS: ATTEND Internal Medicine | DX: M25.512 Pain in left shoulder (principal); G93.40 Encephalopathy, unspecified; M85.812 Other specified disorders of bone density and structure, left shoulder; M19.012 Primary osteoarthritis, left shoulder ==

== ENCOUNTER → 2022-10-14 | Outpatient (CLI) | payer MEDICARE ==
[~2022-10-14] MED LIST changes: +ACET-683 PO; +ADVI200T PO; +AMLO25TA PO; +HYDR-3713 PO; +LIDO5DIS41 TD; +OXYC-517 PO; +RISATAB3 PO; +SIME80CH6 PO; +ZEGE20CA4 PO; +[UNRECOGNIZED DRUG - REMARK] TOP; +med rec comment
== END ==
LOC: M PAIN 16:00
PROVIDERS: ATTEND Anesthesiology
DX: M79.18 Myalgia, other site (principal); M53.3 Sacrococcygeal disorders, not elsewhere classified; G89.29 Other chronic pain; I10 Essential (primary) hypertension; G47.33 Obstructive sleep apnea (adult) (pediatric); Z87.891 Personal history of nicotine dependence; Z88.8 Allergy status to other drugs, medicaments and biological substances; Z79.01 Long term (current) use of anticoagulants; Z79.82 Long term (current) use of aspirin; Z79.899 Other long term (current) drug therapy

== ENCOUNTER → 2022-10-18 | Outpatient (REF) | payer MEDICARE | LOC: M LAB REF 16:28 | PROVIDERS: ATTEND Internal Medicine | DX: E83.52 Hypercalcemia (principal); R31.29 Other microscopic hematuria ==

== ENCOUNTER → 2022-11-02 | Outpatient (REF) | payer MEDICARE ==
[2022-11-02 19:09] LABS: PERCENT SATURATION 31.1 % (19.7-50.0)
[2022-11-02 19:11] LABS: FOLATE 16.9 NG/ML (>5.4)
[2022-11-02 19:25] LABS: CA19-9 TUMOR MARKER,CARBOHYDRA 15.8 U/ML (<35.0)
== END ==
LOC: M LAB REF 16:18
PROVIDERS: ATTEND Internal Medicine
DX: D64.9 Anemia, unspecified (principal); E83.52 Hypercalcemia; R63.4 Abnormal weight loss

== ENCOUNTER 2023-01-17 20:24 | Emergency (ER) | payer MEDICARE ==
[~2023-01-17] VITALS: Ht 177.8 cm; Wt 77.3 kg
[2023-01-17 20:25] VITALS: TEMP 98.6
[2023-01-17] MEDS ORDERED: TRANEXAMIC ACID 100 MG/ML 10ML VIAL ONE ×2 (20:45→22:05)
[2023-01-17] MEDS ORDERED: oxyCODONE 5MG TAB PO ONE (23:20)
[2023-01-17] MEDS ORDERED: CIPRODEX OTIC SUSP 7.5ML AS ONE (23:55)
[2023-01-18 00:47] VITALS: BP 167/95; O2SAT 99
== END 2023-01-18 00:49 | disposition home or self-care (01) ==
LOC: M ED 20:24
DX: H60.322 Hemorrhagic otitis externa, left ear (principal); I10 Essential (primary) hypertension; J45.909 Unspecified asthma, uncomplicated; E78.5 Hyperlipidemia, unspecified; N18.9 Chronic kidney disease, unspecified; Z86.79 Personal history of other diseases of the circulatory system; Z88.8 Allergy status to other drugs, medicaments and biological substances; Z79.52 Long term (current) use of systemic steroids; Z79.83 Long term (current) use of bisphosphonates; Z79.899 Other long term (current) drug therapy

== ENCOUNTER → 2023-03-21 | Outpatient (REF) | payer MEDICARE ==
[~2023-03-21] MED LIST changes: -OXYB5TAB10 PO; +OXYB5TAB11 PO
[2023-03-21 22:55] LABS: PTH INTACT 135.8 PG/ML (18.5-88.0)
[2023-03-21 22:59] LABS: URIC ACID 6.8 MG/DL (3.7-9.2)
== END ==
LOC: M LAB REF 16:34
PROVIDERS: ATTEND Internal Medicine
DX: M10.9 Gout, unspecified (principal); E83.52 Hypercalcemia

== ENCOUNTER → 2023-06-20 | Outpatient (REF) | payer MEDICARE ==
[2023-06-20 18:08] LABS: PERCENT SATURATION 6.1 % (19.7-50.0); PTH INTACT 175.1 PG/ML (18.5-88.0)
[2023-06-20 18:10] LABS: FERRITIN 63.8 NG/ML (10.5-307.3)
== END ==
LOC: M LAB REF 17:13
PROVIDERS: ATTEND Internal Medicine
DX: D64.9 Anemia, unspecified (principal); E83.52 Hypercalcemia

== ENCOUNTER 2023-07-18 09:02 | Outpatient (CLI) | payer MEDICARE ==
[~2023-07-18] VITALS: Ht 177.8 cm; Wt 79.5 kg
[~2023-07-18 09:02] MED LIST changes: +ALBUTEROL SULFATE 2.5MG/0.5ML INH NEB SOLN INH PRN; +EPINEPHrine INJ 1 MG/ML 1ML AMP IM PRN; -HYDR-3910; +HYDR25TA87; +IRON SUCROSE 175 MG in NS 100 ML IV ONE; +IRON SUCROSE 25 MG in NS 23.75 ML IV ONE; +NS 1,000 ML IV SCH; -OXYB5TAB11 PO; +OXYB5TAB14 PO; +diphenhydrAMINE 50MG/ML VIAL IV PRN; +methylPREDNISolone 125MG 2ML VIAL IV PRN
[2023-07-18 09:10] VITALS: BP 138/67; O2SAT 98
[2023-07-18] MEDS: ACETAMINOPHEN 650MG PO PRIOR TO INFUSION PO ONE (09:49)
[2023-07-18] MEDS: IRON SUCROSE 200 MG in NS 100 ML OVER 1 HR IV ONE (10:19)
[2023-07-18 11:25] VITALS: BP 149/82; O2SAT 100
[2023-07-18] MEDS ORDERED: TORS20TA2 PO (15:48)
[2023-07-18] MEDS ORDERED: MIRT1TAB PO (15:50)
[2023-07-18] MEDS ORDERED: ALLO100T PO (15:50)
[2023-07-18] MEDS ORDERED: MIDO5TA PO (15:52)
[2023-07-18] MEDS ORDERED: APAP325T4 PO (15:54)
== END 2023-07-18 11:25 ==
LOC: M INFU 09:02
PROVIDERS: ATTEND Internal Medicine Cardiovascular Disease
DX: D50.9 Iron deficiency anemia, unspecified (principal); Z88.8 Allergy status to other drugs, medicaments and biological substances
CPT/HCPCS: 96365; J1756

== ENCOUNTER 2023-07-25 09:40 | Outpatient (CLI) | payer MEDICARE ==
[~2023-07-25] VITALS: Ht 177.8 cm; Wt 79.5 kg
[2023-07-25 09:40] VITALS: BP 142/98; O2SAT 99
[~2023-07-25 09:40] MED LIST changes: +ALLO100T PO; +APAP325T4 PO; -IRON SUCROSE 175 MG in NS 100 ML IV ONE; -IRON SUCROSE 25 MG in NS 23.75 ML IV ONE; +MIDO5TA PO; +MIRT1TAB PO; +TORS20TA2 PO
[2023-07-25] MEDS: ACETAMINOPHEN TAB 650MG DOSE (2X325MG) PO ONE (09:55)
[2023-07-25] MEDS: IRON SUCROSE 200 MG in NS 100 ML OVER 1 HR IV ONE (09:55)
[2023-07-25 11:00] VITALS: BP 137/76; O2SAT 97
== END 2023-07-25 11:15 ==
LOC: M INFU 09:40
PROVIDERS: ATTEND Internal Medicine Cardiovascular Disease
DX: D50.9 Iron deficiency anemia, unspecified (principal); Z88.8 Allergy status to other drugs, medicaments and biological substances
CPT/HCPCS: 96365; J1756

== ENCOUNTER → 2023-07-26 | Outpatient (CLI) | payer MEDICARE ==
[~2023-07-26] MED LIST changes: -ALBUTEROL SULFATE 2.5MG/0.5ML INH NEB SOLN INH PRN; -EPINEPHrine INJ 1 MG/ML 1ML AMP IM PRN; -NS 1,000 ML IV SCH; -diphenhydrAMINE 50MG/ML VIAL IV PRN; -methylPREDNISolone 125MG 2ML VIAL IV PRN
== END ==
LOC: M RAD 16:22
PROVIDERS: ATTEND Internal Medicine
DX: M25.571 Pain in right ankle and joints of right foot (principal); M79.89 Other specified soft tissue disorders; M17.11 Unilateral primary osteoarthritis, right knee; M77.31 Calcaneal spur, right foot; M76.891 Other specified enthesopathies of right lower limb, excluding foot

== ENCOUNTER → 2023-07-27 | Outpatient (CLI) | payer MEDICARE | LOC: M RAD 08:29 | PROVIDERS: ATTEND Internal Medicine | DX: S00.03XA Contusion of scalp, initial encounter (principal); R29.6 Repeated falls; W19.XXXA Unspecified fall, initial encounter; Y92.9 Unspecified place or not applicable; Y93.9 Activity, unspecified; Y99.8 Other external cause status; J34.1 Cyst and mucocele of nose and nasal sinus; J32.2 Chronic ethmoidal sinusitis ==

== ENCOUNTER 2023-08-01 10:05 | Outpatient (CLI) | payer MEDICARE ==
[~2023-08-01] VITALS: Ht 177.8 cm; Wt 79.5 kg
[2023-08-01] MEDS: ACETAMINOPHEN TAB 650MG DOSE (2X325MG) PO ONE (10:00)
[2023-08-01 10:05] VITALS: BP 120/77; O2SAT 97
[~2023-08-01 10:05] MED LIST changes: +ALBUTEROL SULFATE 2.5MG/0.5ML INH NEB SOLN INH PRN; +EPINEPHrine INJ 1 MG/ML 1ML AMP IM PRN; +NS 1,000 ML IV SCH; +diphenhydrAMINE 50MG/ML VIAL IV PRN; +methylPREDNISolone 125MG 2ML VIAL IV PRN
[2023-08-01] MEDS: IRON SUCROSE 200 MG in NS 100 ML IV ONE (10:14)
[2023-08-01 11:30] VITALS: BP 125/87; O2SAT 97
== END 2023-08-01 11:30 | disposition home or self-care (01) ==
LOC: M INFU 10:05
PROVIDERS: ATTEND Internal Medicine Cardiovascular Disease
DX: D50.9 Iron deficiency anemia, unspecified (principal); Z88.8 Allergy status to other drugs, medicaments and biological substances
CPT/HCPCS: 96365; J1756

== ENCOUNTER 2023-08-08 10:30 | Outpatient (CLI) | payer MEDICARE ==
[~2023-08-08] VITALS: Ht 177.8 cm; Wt 79.5 kg
[2023-08-08 10:30] VITALS: BP 122/75; O2SAT 18
[2023-08-08] MEDS: ACETAMINOPHEN TAB 650MG DOSE (2X325MG) PO ONE (10:49)
[2023-08-08] MEDS: IRON SUCROSE 200 MG in NS 100 ML IV ONE (10:49)
[2023-08-08 12:00] VITALS: BP 140/88; O2SAT 99
== END 2023-08-08 12:00 ==
LOC: M INFU 10:30
PROVIDERS: ATTEND Internal Medicine Cardiovascular Disease
DX: D50.9 Iron deficiency anemia, unspecified (principal); Z88.8 Allergy status to other drugs, medicaments and biological substances
CPT/HCPCS: 96365; J1756

== ENCOUNTER 2023-08-15 09:50 | Outpatient (CLI) | payer MEDICARE ==
[~2023-08-15] VITALS: Ht 177.8 cm; Wt 79.0 kg
[2023-08-15 10:00] VITALS: BP 133/95; O2SAT 95
[2023-08-15] MEDS: ACETAMINOPHEN TAB 650MG DOSE (2X325MG) PO ONE (10:14)
[2023-08-15] MEDS: IRON SUCROSE 200 MG in NS 100 ML IV ONE (10:14)
[2023-08-15 11:12] VITALS: BP 125/63; O2SAT 98
== END 2023-08-15 11:20 ==
LOC: M INFU 09:50
PROVIDERS: ATTEND Internal Medicine Cardiovascular Disease
DX: D50.9 Iron deficiency anemia, unspecified (principal); Z88.8 Allergy status to other drugs, medicaments and biological substances
CPT/HCPCS: 96365; J1756

== ENCOUNTER → 2024-06-22 | Outpatient (REF) | payer MEDICARE ==
[~2024-06-22] MED LIST changes: -ALBUTEROL SULFATE 2.5MG/0.5ML INH NEB SOLN INH PRN; -EPINEPHrine INJ 1 MG/ML 1ML AMP IM PRN; -NS 1,000 ML IV SCH; -ROSU10TA6 PO; +ROSU10TA61 PO; -diphenhydrAMINE 50MG/ML VIAL IV PRN; -methylPREDNISolone 125MG 2ML VIAL IV PRN
[2024-06-22 13:59] LABS: PTH INTACT 184.8 PG/ML (18.5-88.0)
[2024-06-22 14:03] LABS: FERRITIN 35.6 NG/ML (10.5-307.3)
[2024-06-22 14:04] LABS: PERCENT SATURATION 20.5 % (19.7-50.0)
== END ==
LOC: M LAB REF 12:51
PROVIDERS: ATTEND Internal Medicine
DX: D64.9 Anemia, unspecified (principal); E83.52 Hypercalcemia

== ENCOUNTER → 2024-09-18 | Outpatient (REF) | payer MEDICARE ==
[2024-09-18 19:09] LABS: PERCENT SATURATION 18.6 % (19.7-50.0)
[2024-09-18 19:14] LABS: FERRITIN 30.1 NG/ML (10.5-307.3)
== END ==
LOC: M LAB REF 17:23
PROVIDERS: ATTEND Internal Medicine
DX: R53.83 Other fatigue (principal); E83.52 Hypercalcemia; N18.32 Chronic kidney disease, stage 3b

== ENCOUNTER → 2024-12-24 | Outpatient (REF) | payer MEDICARE ==
[~2024-12-24] MED LIST changes: +LIDO1ADH93 TD; -LIDO5DIS41 TD; +LORA-1164 PO; -LORA-622 PO
[2024-12-24 15:38] LABS: IRON (FE) 65.0 UG/DL (65-175); PTH INTACT 258.4 PG/ML (18.5-88.0)
== END ==
LOC: M LAB REF 14:15
PROVIDERS: ATTEND Internal Medicine
DX: G62.9 Polyneuropathy, unspecified (principal); R53.83 Other fatigue

== ENCOUNTER → 2025-04-02 | Outpatient (REF) | payer MEDICARE ==
[~2025-04-02] MED LIST changes: -ROSU10TA61 PO; +ROSU10TA90 PO
[2025-04-02 17:45] LABS: PHOSPHORUS LEVEL 3.7 MG/DL (2.4-5.1); PTH INTACT 209.7 PG/ML (18.5-88.0)
== END ==
LOC: M LAB REF 17:25
PROVIDERS: ATTEND Internal Medicine
DX: R53.83 Other fatigue (principal); G62.9 Polyneuropathy, unspecified